=== PATIENT | female | born 1945 | race Caucasian/White ===

== ENCOUNTER 2017-09-22 17:07 | Emergency (ER) | payer OTHER ==
--- OUTSIDE RECORDS SUMMARY | 2017-09-22 17:09 | XMS REPORT | Clinical Summary ---
:1945 Author Organization [facility] Address [address] [place] [address] Care Team Providers Name Role Phone Jaylon Randall MD Primary Care Provider Allergies Active Allergy Reactions Severity Noted Date Comments Meperidine 02/01/2016 Hallucination Hydromorphone Other (See High 12/22/2015 Sedated, "out of it" Comments) Morphine 02/01/2016 Hallucination Hydrocodone-Acetaminoph Other (See 01/07/2016 Hallucination en Comments) Vancomycin Other (See High 12/22/2015 " affected my kidneys" Comments) Current Medications Prescription Sig. Disp. Refills Start Date End Date Status carvedilol (COREG) Take 9.375 mg by mouth 3 10/28/2015 Active 3.125 MG tablet 2 (two) times a day with meals. rivaroxaban (XARELTO) Take 15 mg by mouth Active tablet nightly. STOPPED 12/17 due to surgery citalopram (CeleXA) 40 Take 40 mg by mouth Active MG tablet every morning. pantoprazole Take 40 mg by mouth Active (PROTONIX) 40 MG EC daily. tablet traMADol (ULTRAM) 50 Take 50 mg by mouth 3 Active mg tablet (three) times a day as needed for moderate pain. iron-folic acid-mv, Take 1 capsule by Active min cmb#15 mouth 2 (two) times a (HEMOCYTE-PLUS) 106 mg day. iron- 1 mg capsule torsemide (DEMADEX) 20 Take 20 mg by mouth Active MG tablet continuously as needed. 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 Mechanical complic of internal orthopedic device, implant or graft 02/17/2016 Protein-calorie malnutrition, severe 02/09/2016 Cellulitis 02/01/2016 Hip fracture 01/07/2016 Complication of internal prosthetic device 01/07/2016 Infection of prosthetic hip joint 01/07/2016 Osteomyelitis, pelvic region and thigh 12/23/2015 Infection 12/23/2015 Immunizations Name Dates Previously Given Next Due FLUCELVAX QUAD PF (0.5mL syringe) 01/14/2016 Family History Medical History Relation Name Comments Diabetes Mother Relation Name Status Comments Father Mother Social History Tobacco Use Types Packs/Day Years Used Date Former Smoker Cigarettes 1 35 Quit: 2009 Smokeless Tobacco: Never Used Alcohol Use Drinks/Week oz/Week Comments Yes OCCASIONAL Sex Assigned at Date Recorded Not on file Last Filed Vital Signs Not on file Plan of Treatment Health Maintenance Due Date Last Done Comments BREAST CANCER SCREENING 08/09/1995 COLON CANCER SCREENING 08/09/1995 SHINGRIX VACCINE (#1) 08/09/1995 ZOSTER VACCINE 2005 PNEUMOCOCCAL POLYSACCHARIDE VACCINE AGE 65 AND OVER 2010 PNEUMOCOCCAL-13 2010 INFLUENZA VACCINE 11/08/2017 01/14/2016 Implants Implanted Type Area Brine Well Operator Device Expiration Model / Identifier Date Serial / Lot Body Prox Cone Hiofst Sz A 50mm Macarena - [id number] Hip Joint Left: [employer] 06/02/2026 [id number] / Implanted: 06/15/2016 (Quantity not on file) Implants Hip / [id number] Head Fml Sld Modlr Co-Cr 40x-6mm D0r-Ftsmpg - [id number] Hip Joint Left: [employer] 03/01/2026 [id number] / Implanted: 06/15/2016 (Quantity not on file) Implants Hip / [id number] G7 Neutral E1 Liner 40mm I - [id number] IPM IMPLANT Left: [employer], [employer] [id number] / Implanted: 06/15/2016 (Quantity not on file) DEVICES Hip / [id number] Screw G7 6.5x25 - [id number] IPM IMPLANT Left: [employer] 05/24/2026 [id number] / Implanted: 06/15/2016 (Quantity not on file) DEVICES Hip / [id number] Screw G7 6.5x25 - [id number] IPM IMPLANT Left: [employer] 05/24/2026 [id number] / Implanted: 06/15/2016 (Quantity not on file) DEVICES Hip / [id number] Screw G7 6.5x20 - [id number] IPM IMPLANT Left: [employer] 02/23/2026 [id number] / Implanted: 06/15/2016 (Quantity not on file) DEVICES Hip / [id number] Screw G7 6.5x20 - [id number] IPM IMPLANT Left: BI[employer] Delta, [employer] 04/25/2026 [id number] / Implanted: 06/15/2016 (Quantity not on file) DEVICES Hip / [id number] Screw G7 6.5x60 - [id number] IPM IMPLANT Left: Kelan, [employer] 09/23/2025 [id number] / Implanted: Qty: 1 on 06/15/2016 by Quique Fowler MD DEVICES Hip / Screw G7 6.5x35 - [id number] IPM IMPLANT Left: Kelan, [employer] 06/02/2025 [id number] / Implanted: 06/15/2016 (Quantity not on file) DEVICES Hip / [id number] Screw G7 6.5x20 - [id number] IPM IMPLANT Left: Kelan, [employer] 03/13/2026 [id number] / Implanted: 06/15/2016 (Quantity not on file) DEVICES Hip / [id number] G7 [place] Multihole 66mm I - [id number] IPM IMPLANT Left: Kelan, [employer] [id number] / Implanted: 06/15/2016 (Quantity not on file) DEVICES Hip / [id number] Macarena 38q265ul Intlkng Dist - [id number] IPM IMPLANT Left: Kelan, [employer] [id number] / Implanted: 06/15/2016 (Quantity not on file) DEVICES Hip / [id number] Screw Trans Kressman 5.0x40mm - [id number] IPM IMPLANT Left: [employer] Delta, [employer] [id number] / Implanted: 06/15/2016 (Quantity not on file) DEVICES Hip / 5.2uea22ca Ti Kaessmann Screw - [id number] IPM IMPLANT Left: [employer] [id number] / Implanted: 06/15/2016 (Quantity not on file) DEVICES Hip / 5.4fqh71qh Ti Kaessmann Screw - [id number] IPM IMPLANT Left: [employer], [employer] [id number] / Implanted: 06/15/2016 (Quantity not on file) DEVICES Hip / Cement Bone Full Dose Simplex P Radiopaque - [id number] Surgical Left: LINDA 06/07/2018 [id number] [id number] / Implanted: Qty: 1 on 12/23/2015 by Quique Fowler MD Bone Cement Hip ORTHOPEDICS / HIPS-KNEES [id number] Cement Bone Full-Dose Premxd W/ Tobr Simplex P Pack 10/Ea - [id number] Surgical Left: LINDA 04/09/2017 [id number] [id number] / Implanted: Qty: 1 on 12/23/2015 by Quique Fowler MD Bone Cement Hip ORTHOPEDICS / HIPS-KNEES [id number] Cement Bone Full-Dose Premxd W/ Tobr Simplex P Pack 10/Ea - [id number] Surgical Left: LINDA 02/07/2017 [id number] [id number] / Implanted: Qty: 1 on 12/23/2015 by Quique Fowler MD Bone Cement Hip ORTHOPEDICS / HIPS-KNEES [id number] Cement Bone Full-Dose Premxd W/ Tobr Simplex P Pack 10/Ea - [id number] Surgical Left: LINDA 04/09/2017 [id number] 9 [id number] / Implanted: Qty: 1 on 12/23/2015 by Quique Fowler MD Bone Cement Hip ORTHOPEDICS / HIPS-KNEES [id number] Cement Bone Full-Dose Premxd W/ Tobr Simplex P Pack 10/Ea - [id number] Surgical Left: LINDA 05/10/2017 [id number] 9 [id number] / Implanted: Qty: 1 on 02/17/2016 by Quique Fowler MD Bone Cement Hip ORTHOPEDICS / HIPS-KNEES [id number] Cement Bone Full-Dose Premxd W/ Tobr Simplex P Pack 10/Ea - [id number] Surgical Left: LINDA 04/09/2017 [id number] 9 010 / Implanted: Qty: 1 on 02/17/2016 by Quique Fowler MD Bone Cement Hip ORTHOPEDICS / HIPS-KNEES [id number] Cement Bone Full-Dose Premxd W/ Tobr Simplex P Pack 10/Ea - [id number] Surgical Left: LINDA 07/08/2017 [id number] 9 [id number] / Implanted: Qty: 1 on 02/17/2016 by Quique Fowler MD Bone Cement Hip ORTHOPEDICS / HIPS-KNEES [id number] Cement Bone Full Dose Simplex P Radiopaque - [id number] Surgical Left: LINDA 09/07/2018 [id number] 1 010 / Implanted: Qty: 1 on 02/17/2016 by Quique Fowler MD Bone Cement Hip ORTHOPEDICS / HIPS-KNEES [id number] Cement Bone Full Dose Simplex P Radiopaque - [id number] Surgical Left: LINDA 06/07/2018 6191 1 010 / Implanted: Qty: 1 on 04/13/2016 by Quique Fowler MD Bone Cement Hip ORTHOPEDICS / HIPS-KNEES [id number] Cement Bone Full-Dose Premxd W/ Tobr Simplex P Pack 10/Ea - [id number] Surgical Left: LINDA 08/07/2017 [id number] 9 010 / Implanted: Qty: 1 on 04/13/2016 by Quique Fowler MD Bone Cement Hip ORTHOPEDICS / HIPS-KNEES [id number] Cement Bone Full-Dose Premxd W/ Tobr Simplex P Pack 10/Ea - [id number] Surgical Left: LINDA 08/07/2017 [id number] 9 010 / Implanted: Qty: 1 on 04/13/2016 by Quique Fowler MD Bone Cement Hip ORTHOPEDICS / HIPS-KNEES [id number] Cement Bone Full-Dose Premxd W/ Tobr Simplex P Pack 10/Ea - [id number] Surgical Left: LINDA 08/07/2017 [id number] 9 010 / Implanted: Qty: 1 on 04/13/2016 by Quique Fowler MD Bone Cement Hip ORTHOPEDICS / HIPS-KNEES [id number] Cement Bone Full-Dose Premxd W/ Tobr Simplex P Pack 10/Ea - [id number] Surgical Left: LINDA 08/07/2017 [id number] 9 010 / Implanted: Qty: 2 on 04/20/2016 by Quique Fowler MD Bone Cement Hip ORTHOPEDICS / HIPS-KNEES [id number] Cement Bone Full-Dose Premxd W/ Tobr Simplex P Pack 10/Ea - [id number] Surgical Left: LINDA 08/07/2017 [id number] 9 010 / Implanted: Qty: 1 on 04/20/2016 by Quique Fowler MD Bone Cement Hip ORTHOPEDICS / HIPS-KNEES [id number] Cement Bone Prep Univl Insrtr Sculp Fml Canal [place]aver[place] Suct - [id number] Surgical Left: LINDA 10/08/2020 [id number] / Implanted: Qty: 1 on 12/23/2015 by Quique Fowler MD Implants; Hip INSTRUMENTS / Expanders; [id number] Extenders; Surgical Wires Cement Bone Prep Univl Insrtr Sculp Fml Canal [place] Suct Sm - [id number] Surgical Left: LINDA 12/09/2020 [id number] / Implanted: Qty: 1 on 02/17/2016 by Quique Fowler MD Implants; Hip INSTRUMENTS / Expanders; [id number] Extenders; Surgical Wires Cement Bone Prep Univl Insrtr Sculp Fml Canal [place] Suct Sm - [id number] Surgical N/A: LINDA 01/08/2021 [id number] / Implanted: Qty: 1 on 04/20/2016 by Quique Fowler MD Implants; N/A INSTRUMENTS / Expanders; [id number] Extenders; Surgical Wires Results Not on fileafter 09/21/2016 Insurance Payer Benefit Plan / Group Subscriber ID Type Phone Address [facility] xxxxxxxxxxx O [phone] [place] [address]
--- NOTE | 2017-09-22 18:23 | RAD REPORT ---
EXAM DESCRIPTION: RAD - Elbow Left 3 View - 09/22/2017 6:13 pm CLINICAL HISTORY: PAIN Fall, trauma COMPARISON: No comparisons FINDINGS: No fracture or dislocation seen.
--- NOTE | 2017-09-22 18:24 | RAD REPORT ---
EXAM DESCRIPTION: RAD - Hip Left 2 View - 09/22/2017 6:20 pm CLINICAL HISTORY: PAIN History of fall COMPARISON: Hip Left 2 View dated 05/04/2014; Hip Left 2 View dated 05/04/2014 FINDINGS: Left total hip arthroplasty noted. No acute fracture or dislocation seen.
--- NOTE | 2017-09-22 18:25 | RAD REPORT ---
EXAM DESCRIPTION: RAD - Hip Right 2 View - 09/22/2017 6:13 pm CLINICAL HISTORY: PAIN Trauma, fall COMPARISON: Hip Left 2 View dated 09/22/2017 FINDINGS: Right total hip arthroplasty noted. No acute fracture or dislocation seen.
[2017-09-22] MEDS ORDERED: HYDROCODONE/APAP 5/325 MG TAB ONE (18:38)
[2017-09-22] MEDS ORDERED: TETANUS & DIPHTHERIA TOX,ADULT 0.5 ML VIAL ONE (18:38)
--- NOTE | 2017-09-22 19:08 | EDPHYS ---
Physician Documentation [facility] Name: Sandra Armas Age: 72 yrs Sex: Female : 1945 Arrival Date: 09/22/2017 Time: 17:15 Bed 26 Private MD: ED Physician Khanh Snow HPI: 09/22 18:00 This 72 yrs old Female presents to ER via EMS with complaints of Fall Injury. pm1 19:00 Details of fall: The patient fell from an upright position, while walking. Onset: The pm1 symptoms/episode began/occurred just prior to arrival. Associated injuries: The patient sustained left elbow, Skin tear, left and right hip pain no greater than her normal chronic pain. Patient landed on her left hip and left elbow. Patient without any headache, head injury, neck pain, or neck injury. No LOC. Patient was working in her garden and tripped on the hose resulting in a fall on her left side. Patient did not hit her head. 19:00 Patient able to walk after injury. pm1 Historical: - Allergies: 17:49 Morphine; kr2 17:49 Vancomycin; kr2 - PMHx: 17:49 Atrial Fib; Hypertension; Lung Cancer; Infection of Prosthetic Hip; kr2 - PSHx: 17:49 Bilateral hip replacements; Repair of left hip prosthesis; kr2 - Immunization history:: Adult Immunizations unknown. - Social history:: Smoking status: Patient/guardian denies using tobacco. - Immunization history: Last tetanus immunization: unknown. - Ebola Screening: : No symptoms or risks identified at this time. ROS: 19:00 Constitutional: Negative for fever, chills, and weight loss, Eyes: Negative for injury, pm1 pain, redness, and discharge, ENT: Negative for injury, pain, and discharge, Neck: Negative for injury, pain, and swelling, Cardiovascular: Negative for chest pain, palpitations, and edema, Respiratory: Negative for shortness of breath, cough, wheezing, and pleuritic chest pain, Abdomen/GI: Negative for abdominal pain, nausea, vomiting, diarrhea, and constipation, Back: Negative for injury and pain, : Negative for injury, bleeding, discharge, and swelling. 19:00 Neuro: Negative for headache, weakness, numbness, tingling, and seizure. 19:00 MS/extremity: Positive for pain, of the left elbow, left hip, and right hip, Negative for decreased range of motion, skin tear to left elbow. 19:00 Skin: Positive for skin tear left elbow. Exam: 19:00 Constitutional: This is a well developed, well nourished patient who is awake, alert, pm1 and in no acute distress. Head/Face: Normocephalic, atraumatic. Eyes: Pupils equal round and reactive to light, extra-ocular motions intact. Lids and lashes normal. Conjunctiva and sclera are non-icteric and not injected. Cornea within normal limits. Periorbital areas with no swelling, redness, or edema. ENT: Nares patent. No nasal discharge, no septal abnormalities noted. Tympanic membranes are normal and external auditory canals are clear. Oropharynx with no redness, swelling, or masses, exudates, or evidence of obstruction, uvula midline. Mucous membranes moist. Neck: Trachea midline, no thyromegaly or masses palpated, and no cervical lymphadenopathy. Supple, full range of motion without nuchal rigidity, or vertebral point tenderness. No Meningismus. Chest/axilla: Normal chest wall appearance and motion. Nontender with no deformity. No lesions are appreciated. Cardiovascular: Regular rate and rhythm with a normal S1 and S2. No gallops, murmurs, or rubs. Normal PMI, no JVD. No pulse deficits. Respiratory: Lungs have equal breath sounds bilaterally, clear to auscultation and percussion. No rales, rhonchi or wheezes noted. No increased work of breathing, no retractions or nasal flaring. Abdomen/GI: Soft, non-tender, with normal bowel sounds. No distension or tympany. No guarding or rebound. No evidence of tenderness throughout. Back: No spinal tenderness. No costovertebral tenderness. Full range of motion. 19:00 Musculoskeletal/extremity: Extremities: grossly normal except: noted in the left and right hip: tenderness, ROM: full active range of motion, in the left and right hip, full passive range of motion, in the left and right hip, Circulation is intact in all extremities. the right leg and left leg Sensation intact. 19:00 Skin: Appearance: normal except for affected area, injury, abrasion(s), small abrasion noted, of the left elbow. Vital Signs: 17:25 BP 126 / 68; Pulse 51; Resp 16; Temp 98.4; Pulse Ox 94% on R/A; Weight 85.28 kg; Height kr2 5 ft. 7 in. (170.18 cm); Pain 6/10; 17:25 Body Mass Index 29.45 (85.28 kg, 170.18 cm) kr2 [place] Coma Score: 17:25 Eye Response: spontaneous(4). Verbal Response: oriented(5). Motor Response: obeys kr2 commands(6). Total: 15. Trauma Score (Adult): 17:25 Eye Response: spontaneous(1); Verbal Response: oriented(1); Motor Response: obeys kr2 commands(2); Systolic BP: > 89 mm Hg(4); Respiratory Rate: 10 to 29 per min(4); [place] Score: 15; Trauma Score: 12 MDM: 17:19 Patient medically screened. pm1 19:07 Data reviewed: vital signs. Counseling: I had a detailed discussion with the patient pm1 and/or guardian regarding: the historical points, exam findings, and any diagnostic results supporting the discharge/admit diagnosis, radiology results, the need for outpatient follow up, to return to the emergency department if symptoms worsen or persist or if there are any questions or concerns that arise at home. 09/22 17:34 Order name: Hip Right 2 View XRAY; Complete Time: 18:26 pm1 09/22 17:34 Order name: Hip Left 2 View XRAY; Complete Time: 18:26 pm1 09/22 17:34 Order name: Elbow Left 3 View XRAY; Complete Time: 18:26 pm1 09/22 17:40 Order name: Wound Care; Complete Time: 17:56 pm1 Administered Medications: 18:40 Drug: Tetanus-Diphtheria Toxoid Adult 0.5 ml {Web Editor: Subblime. Exp: kr2 12/08/2019. Lot #: [id number]. } Route: IM; Site: left deltoid; 18:40 Drug: [place] 5 mg-325 mg 1 tabs Route: PO; kr2 19:08 Drug: Triple Antibiotic Ointment 1 application Route: Topical; Site: left forearm; kr2 Disposition: 09/22/17 19:08 Discharged to Home. Impression: Contusion of left hip, Left elbow skin tear. - Condition is Stable. - Discharge Instructions: Contusion, Skin Tear Care, Hip Pain. - Medication Reconciliation Form, Thank You Letter form. - Follow up: Emergency Department; When: As needed; Reason: Worsening of condition. Follow up: Private Physician; When: 2 - 3 days; Reason: Recheck today's complaints, Continuance of care, Re-evaluation by your physician. - Problem is new. - Symptoms have improved. Addendum: 09/26/2017 07:06 Co-signature as Attending Physician, Khanh Snow MD I agree with the assessment and k dr plan of care. Signatures: Dispatcher [employer] EDRI Khanh Snow MD MD [facility] Nico Zendejas NP EMBEDDED FIRMWARE ENGINEER pm1 Maria Fernanda Gann RN RN kr2 Corrections: (The following items were deleted from the chart) 09/22 19:29 19:08 09/22/2017 19:08 Discharged to Home. Impression: Contusion of left hip; Left kr2 elbow skin tear. Condition is Stable. Forms are Medication Reconciliation Form, Thank You Letter, Antibiotic Education, Prescription Opioid Use. Follow up: Emergency Department; When: As needed; Reason: Worsening of condition. Follow up: Private Physician; When: 2 - 3 days; Reason: Recheck today's complaints, Continuance of care, Re-evaluation by your physician. Problem is new. Symptoms have improved. pm1
--- NOTE | 2017-09-22 19:08 | ER ---
Nurse's Notes [facility] Name: Sandra Armas Age: 72 yrs Sex: Female : 1945 Arrival Date: 09/22/2017 Time: 17:15 Bed 26 Private MD: Diagnosis: Contusion of left hip;Left elbow skin tear Presentation: 09/22 17:15 Presenting complaint: EMS states: patient was working outside and tripped on the garden kr2 hose causing her to fall. She states she does not have anymore pain than normal but she has bilateral artificial hips and was concerned about that. She also has a skin tear to the left forearm. Care prior to arrival: Injury dressed. Mechanism of Injury: Fall from standing position. Trauma event details: Injury occurred in the [facility], Injury occurred: at home. Injury occurred: September 22, 2017 Injury occurred at: 16:18. 17:15 Acuity: RYAN 3 kr2 17:15 Method Of Arrival: EMS: [facility] kr2 17:15 Transition of care: patient was not received from another setting of care. Onset of kr2 symptoms was September 22, 2017 at 16:15. Risk Assessment: Do you want to hurt yourself or someone else? Patient reports no desire to harm self or others. Initial Sepsis Screen: Does the patient meet any 2 criteria? No. Patient's initial sepsis screen is negative. Does the patient have a suspected source of infection? No. Patient's initial sepsis screen is negative. Triage Assessment: 17:31 General: Appears in no apparent distress. comfortable, well groomed, well developed, kr2 well nourished, Behavior is calm, cooperative, appropriate for age. Pain: Complains of pain in left hip Pain currently is 6 out of 10 on a pain scale. Quality of pain is described as aching, Pain began 1 hour ago. Is continuous, Alleviated by rest, Aggravated by increased activity. Trauma Activation: Not Applicable Physician: ED Physician; Name: ; Notified At: ; Arrived At: Physician: General Surgeon; Name: ; Notified At: ; Arrived At: Physician: Radiology; Name: ; Notified At: ; Arrived At: Physician: Respiratory; Name: ; Notified At: ; Arrived At: Physician: Lab; Name: ; Notified At: ; Arrived At: Historical: - Allergies: 17:49 Morphine; kr2 17:49 Vancomycin; kr2 - PMHx: 17:49 Atrial Fib; Hypertension; Lung Cancer; Infection of Prosthetic Hip; kr2 - PSHx: 17:49 Bilateral hip replacements; Repair of left hip prosthesis; kr2 - Immunization history:: Adult Immunizations unknown. - Social history:: Smoking status: Patient/guardian denies using tobacco. - Immunization history: Last tetanus immunization: unknown. - Ebola Screening: : No symptoms or risks identified at this time. Screenin:31 Abuse screen: Denies threats or abuse. Denies injuries from another. Nutritional kr2 screening: No deficits noted. Tuberculosis screening: No symptoms or risk factors identified. Fall Risk None identified. Primary Survey: 17:30 A: Airway: patent. Breathing/Chest: Respiratory pattern: regular, Respiratory effort: kr2 spontaneous, unlabored, Breath sounds: clear, bilaterally. Chest inspection: symmetrical rise and fall of the chest. Circulation: Cardiac rhythm: sinus rhythm Heart tones present. Skin color: pink, Skin temperature: warm, dry. Disability Alert. 17:43 Reassessment Airway Airway Patent Breathing/Chest Respiratory pattern Regular kr2 Respiratory effort Spontaneous Unlabored Breath sounds Clear Chest inspection Symmetrical Circulation Heart rhythm Sinus rhythm Disability Alert. Assessment: 19:17 Reassessment: Wound cleansed with normal saline and Hibiclens, dried, triple antibiotic kr2 applied, covered with nonstick dressing, wrapped with gauze and secured with tape. Vital Signs: 17:25 BP 126 / 68; Pulse 51; Resp 16; Temp 98.4; Pulse Ox 94% on R/A; Weight 85.28 kg; Height kr2 5 ft. 7 in. (170.18 cm); Pain 6/10; 17:25 Body Mass Index 29.45 (85.28 kg, 170.18 cm) kr2 [place] Coma Score: 17:25 Eye Response: spontaneous(4). Verbal Response: oriented(5). Motor Response: obeys kr2 commands(6). Total: 15. Trauma Score (Adult): 17:25 Eye Response: spontaneous(1); Verbal Response: oriented(1); Motor Response: obeys kr2 commands(2); Systolic BP: > 89 mm Hg(4); Respiratory Rate: 10 to 29 per min(4); [place] Score: 15; Trauma Score: 12 ED Course: 17:15 Patient arrived in ED. kr2 17:15 Arm band placed on. kr2 17:15 Patient has correct armband on for positive identification. Bed in low position. Call kr2 light in reach. Side rails up X 1. Pulse ox on. NIBP on. Door closed. Warm blanket given. Head of bed elevated. 17:15 Patient maintains SpO2 saturation greater than 95% on room air. kr2 17:15 Thermoregulation: warm blanket given to patient. kr2 17:19 Triage completed. kr2 17:19 Nico Zendejas NP is PHCP. pm1 17:19 Khanh Snow MD is Attending Physician. pm1 17:43 No provider procedures requiring assistance completed. kr2 17:55 Maria Fernanda Gann, RONA is Primary Nurse. kr2 18:07 X-ray completed. Patient tolerated procedure well. Patient moved back from radiology. bb2 18:13 Hip Right 2 View XRAY In Process Unspecified. EDMS 18:13 Hip Left 2 View XRAY In Process Unspecified. EDMS 18:13 Elbow Left 3 View XRAY In Process Unspecified. EDMS 19:19 Patient did not have IV access during this emergency room visit. kr2 Administered Medications: 18:40 Drug: Tetanus-Diphtheria Toxoid Adult 0.5 ml {Machinist First Class: [employer]. Exp: kr2 12/08/2019. Lot #: [id number]. } Route: IM; Site: left deltoid; 18:40 Drug: [place] 5 mg-325 mg 1 tabs Route: PO; kr2 19:08 Drug: Triple Antibiotic Ointment 1 application Route: Topical; Site: left forearm; kr2 Intake: 19:19 PO: 30ml (Water); Total: 30ml. kr2 Outcome: 19:08 Discharge ordered by . pm1 19:18 Discharged to home via wheelchair, with family. kr2 19:18 Condition: good 19:18 Discharge instructions given to patient, family, Instructed on discharge instructions, follow up and referral plans. wound care, Demonstrated understanding of instructions, follow-up care, wound care. 19:28 Patient's length of stay was not longer than 2 hours. kr2 19:29 Patient left the ED. kr2 Signatures: Dispatcher [employer] EDMS Nico Zendejas, MATTHIAS DRY ROOM OPERATOR pm1 Maria Fernanda Gann, RN RN kr2 Katerin Hillman bb2
[2017-09-22 20:29] VITALS: BP 126/68; TEMP 98.4; O2SAT 94
== END 2017-09-22 19:29 | disposition home or self-care (01) ==
LOC: ER 17:07
DX: S51.012A Laceration without foreign body of left elbow, initial encounter (principal); S70.02XA Contusion of left hip, initial encounter; W01.0XXA Fall on same level from slipping, tripping and stumbling without subsequent striking against object, initial encounter; Y92.019 Unspecified place in single-family (private) house as the place of occurrence of the external cause; Z88.1 Allergy status to other antibiotic agents; Z88.5 Allergy status to narcotic agent; I48.91 Unspecified atrial fibrillation; I10 Essential (primary) hypertension; Z96.643 Presence of artificial hip joint, bilateral
CPT/HCPCS: 90714; 99284

== ENCOUNTER 2018-07-04 13:05 | Inpatient (IN) | payer OTHER ==
--- OUTSIDE RECORDS SUMMARY | 2018-07-04 14:53 | XMS REPORT | Clinical Summary ---
:1945 Author Organization [facility] Address [address] [place] [address] Care Team Providers Name Role Phone Jaylon Randall MD Primary Care Provider Allergies Active Allergy Reactions Severity Noted Date Comments Meperidine 02/01/2016 Hallucination Hydromorphone Other (See High 12/22/2015 Sedated, "out of it" Comments) Morphine 02/01/2016 Hallucination Hydrocodone-Acetaminoph Other (See 01/07/2016 Hallucination en Comments) Vancomycin Other (See High 12/22/2015 " affected my kidneys" Comments) Medications Medication Sig Dispensed Refills Start Date End Date Status carvedilol (COREG) Take 9.375 mg by 3 10/28/2015 Active 3.125 MG tablet mouth 2 (two) times a day with meals. rivaroxaban Take 15 mg by mouth 0 Active (XARELTO) tablet nightly. STOPPED 12/17 due to surgery citalopram (CeleXA) Take 40 mg by mouth 0 Active 40 MG tablet every morning. pantoprazole Take 40 mg by mouth 0 Active (PROTONIX) 40 MG EC daily. tablet traMADol (ULTRAM) 50 Take 50 mg by mouth 0 Active mg tablet 3 (three) times a day as needed for moderate pain. iron-folic acid-mv, Take 1 capsule by 0 Active min cmb#15 mouth 2 (two) times (HEMOCYTE-PLUS) 106 a day. mg iron- 1 mg capsule torsemide (DEMADEX) Take 20 mg by mouth 0 Active 20 MG tablet continuously as needed. Active Problems [...] Assigned at Date Recorded Not on file Job Start Date Occupation Industry Not on file Not on file Not on file Travel History Travel Start Travel End No recent travel history available. Last Filed Vital Signs Not on file Plan of Treatment Health Maintenance Due Date Last Done Comments BREAST CANCER SCREENING 08/09/1995 COLON CANCER SCREENING 08/09/1995 SHINGLES VACCINES (#1) 08/09/1995 65+ PNEUMOCOCCAL VACCINE (1 of 2 - PCV13) 2010 PNEUMOCOCCAL POLYSACCHARIDE VACCINE AGE 65 AND OVER 2010 INFLUENZA VACCINE 11/08/2017 01/14/2016 Implants Implanted Type Area Math Teacher Device Shelf Model / Identifier Expiration Serial / Lot Date Body Prox Cone Hiofst Sz A 50mm Macarena - [id number] Hip Joint Left: [employer] 06/02/2026 [id number] / Implanted: 06/15/2016 (Quantity not on file) Implants Hip / [id number] Head Fml Sld Modlr Co-Cr 40x-6mm [id number] - [id number] Hip Joint Left: [employer] 03/01/2026 [id number] / Implanted: 06/15/2016 (Quantity not on file) Implants Hip / [id number] G7 Neutral E1 Liner 40mm I - [id number] IPM IMPLANT Left: [employer] [id number] / Implanted: 06/15/2016 (Quantity not on file) DEVICES Hip / [id number] Screw G7 6.5x25 - [id number] IPM IMPLANT Left: [employer] 05/24/2026 [id number] / Implanted: 06/15/2016 (Quantity not on file) DEVICES Hip / [id number] Screw G7 6.5x25 - [id number] IPM IMPLANT Left: [employer] 05/24/2026 [id number] / Implanted: 06/15/2016 (Quantity not on file) DEVICES Hip / [id number] Screw G7 6.5x20 - [id number] IPM IMPLANT Left: [employer] 02/23/2026 [id number] / Implanted: 06/15/2016 (Quantity not on file) DEVICES Hip / [id number] Screw G7 6.5x20 - [id number] IPM IMPLANT Left: [employer] 04/25/2026 [id number] / Implanted: 06/15/2016 (Quantity not on file) DEVICES Hip / [id number] Screw G7 6.5x60 - [id number] IPM IMPLANT Left: [employer], [employer] 09/23/2025 [id number] / Implanted: Qty: 1 on 06/15/2016 by Quique Fowler MD DEVICES Hip / Screw G7 6.5x35 - [id number] [id number] IMPLANT Left: [employer], [employer] 06/02/2025 [id number] / Implanted: 06/15/2016 (Quantity not on file) DEVICES Hip / [id number] Screw G7 6.5x20 - [id number] IPM IMPLANT Left: [employer], [employer] 03/13/2026 [id number] / Implanted: 06/15/2016 (Quantity not on file) DEVICES Hip / [id number] G7 [place] Multihole 66mm I - [id number] IPM IMPLANT Left: [employer], [employer] [id number] / Implanted: 06/15/2016 (Quantity not on file) DEVICES Hip / [id number] Macarena 76x747yc Intlkng Dist - [id number] IPM IMPLANT Left: [employer], [employer] [id number] / Implanted: 06/15/2016 (Quantity not on file) DEVICES Hip / [id number] Screw Trans Kressman 5.0x40mm - [id number] IPM IMPLANT Left: [employer], [employer] [id number] / Implanted: 06/15/2016 (Quantity not on file) DEVICES Hip / 5.2dxn99rr Ti Kaessmann Screw - [id number] IPM IMPLANT Left: [employer], [employer] [id number] / Implanted: 06/15/2016 (Quantity not on file) DEVICES Hip / 5.4pnb52ah Ti Kaessmann Screw - [id number] IPM IMPLANT Left: [employer] [id number] / Implanted: 06/15/2016 (Quantity not on file) DEVICES Hip / Cement Bone Full Dose Simplex P Radiopaque - [id number] Surgical Left: LINDA 06/07/2018 6191 1 010 / Implanted: Qty: 1 on 12/23/2015 by Quique Fowler MD Bone Cement Hip ORTHOPEDICS / HIPS-KNEES [id number] Cement Bone Full-Dose Premxd W/ Tobr Simplex P Pack 10/Ea - [id number] Surgical Left: LINDA 04/09/2017 [id number] 9 010 / Implanted: Qty: 1 on 12/23/2015 by Quique Fowler MD Bone Cement Hip ORTHOPEDICS / HIPS-KNEES [id number] Cement Bone Full-Dose Premxd W/ Tobr Simplex P Pack 10/Ea - [id number] Surgical Left: LINDA 02/07/2017 [id number] 9 010 / Implanted: Qty: 1 on 12/23/2015 by Quique Fowler MD Bone Cement Hip ORTHOPEDICS / HIPS-KNEES [id number] Cement Bone Full-Dose Premxd W/ Tobr Simplex P Pack 10/Ea - [id number] Surgical Left: LINDA 04/09/2017 [id number] 9 010 / Implanted: Qty: 1 on 12/23/2015 by Quique Fowler MD Bone Cement Hip ORTHOPEDICS / HIPS-KNEES [id number] Cement Bone Full-Dose Premxd W/ Tobr Simplex P Pack 10/Ea - [id number] Surgical Left: LINDA 05/10/2017 [id number] 9 010 / Implanted: Qty: 1 on 02/17/2016 by Quique Fowler MD Bone Cement Hip ORTHOPEDICS / HIPS-KNEES [id number] Cement Bone Full-Dose Premxd W/ Tobr Simplex P Pack 10/Ea - [id number] Surgical Left: LINDA 04/09/2017 6197 9 010 / Implanted: Qty: 1 on 02/17/2016 by Quique Fowler MD Bone Cement Hip ORTHOPEDICS / HIPS-KNEES [id number] Cement Bone Full-Dose Premxd W/ Tobr Simplex P Pack 10/Ea - [id number] Surgical Left: LINDA 07/08/2017 [id number] 9 010 / Implanted: Qty: 1 on 02/17/2016 by Quique Fowler MD Bone Cement Hip ORTHOPEDICS / HIPS-KNEES [id number] Cement Bone Full Dose Simplex P Radiopaque - [id number] Surgical Left: LINDA 09/07/2018 6191 1 010 / Implanted: Qty: 1 on 02/17/2016 by Quique Fowler MD Bone Cement Hip ORTHOPEDICS / HIPS-KNEES [id number] Cement Bone Full Dose Simplex P Radiopaque - [id number] Surgical Left: LINDA 06/07/2018 6191 1 010 / Implanted: Qty: 1 on 04/13/2016 by Quique Fowler MD Bone Cement Hip ORTHOPEDICS / HIPS-KNEES [id number] Cement Bone Full-Dose Premxd W/ Tobr Simplex P Pack 10/Ea - [id number] Surgical Left: LINDA 08/07/2017 6197 9 010 / Implanted: Qty: 1 on 04/13/2016 by Quique Fowler MD Bone Cement Hip ORTHOPEDICS / HIPS-KNEES [id number] Cement Bone Full-Dose Premxd W/ Tobr Simplex P Pack 10/Ea - [id number] Surgical Left: LINDA 08/07/2017 6197 9 010 / Implanted: Qty: 1 on 04/13/2016 by Quique Fowler MD Bone Cement Hip ORTHOPEDICS / HIPS-KNEES [id number] Cement Bone Full-Dose Premxd W/ Tobr Simplex P Pack 10/Ea - [id number] Surgical Left: LINDA 08/07/2017 6197 9 010 / Implanted: Qty: 1 on 04/13/2016 by Quique Fowler MD Bone Cement Hip ORTHOPEDICS / HIPS-KNEES [id number] Cement Bone Full-Dose Premxd W/ Tobr Simplex P Pack 10/Ea - [id number] Surgical Left: LINDA 08/07/2017 6197 9 010 / Implanted: Qty: 2 on 04/20/2016 by Quique Fowler MD Bone Cement Hip ORTHOPEDICS / HIPS-KNEES [id number] Cement Bone Full-Dose Premxd W/ Tobr Simplex P Pack 10/Ea - [id number] Surgical Left: LINDA 08/07/2017 6197 9 010 / Implanted: Qty: 1 on 04/20/2016 by Quique Fowler MD Bone Cement Hip ORTHOPEDICS / HIPS-KNEES [id number] Cement Bone Prep Univl Insrtr Sculp Fml [place] Suct Sm - [id number] Surgical Left: LINDA 10/08/2020 [id number] / Implanted: Qty: 1 on 12/23/2015 by Quique Fowler MD Implants; Hip INSTRUMENTS / Expanders; [id number] Extenders; Surgical Wires Cement Bone Prep Univl Insrtr Sculp Fml [place] Suct Sm - [id number] Surgical Left: LINDA 12/09/2020 [id number] / Implanted: Qty: 1 on 02/17/2016 by Quique Fowler MD Implants; Hip INSTRUMENTS / Expanders; [id number] Extenders; Surgical Wires Cement Bone Prep Univl Insrtr Sculp Fml [place] Suct Sm - [id number] Surgical N/A: LINDA 01/08/2021 [id number] / Implanted: Qty: 1 on 04/20/2016 by Quique Fowler MD Implants; N/A INSTRUMENTS / Expanders; [id number] Extenders; Surgical Wires Procedures Procedure Name Priority Date/Time Associated Diagnosis Comments TRANSFUSE RED BLOOD Routine 12/13/2017 5:28 PM CDT CELLS TRANSFUSE RED BLOOD Routine 12/13/2017 5:28 PM CDT CELLS TRANSFUSE RED BLOOD Routine 12/13/2017 5:28 PM CDT CELLS TRANSFUSE RED BLOOD Routine 12/13/2017 5:28 PM CDT CELLS TRANSFUSE RED BLOOD Routine 12/13/2017 5:27 PM CDT CELLS TRANSFUSE RED BLOOD Routine 12/13/2017 5:27 PM CDT CELLS TRANSFUSE RED BLOOD Routine 12/13/2017 5:26 PM CDT CELLS after 07/03/2017 Results Transfuse RBC (12/13/2017 5:28 PM CDT)Only the most recent of7 resultswithin the time period is included.after 07/03/2017 Insurance Payer Benefit Plan / Group Subscriber ID Type Phone Address [facility] MCR ADV xxxxxxxxxxx O Advance Directives Patient has advance care planning documents, and code status on file. For more information, please contact:Hood Leung[address] [place] [address] Code Status Date Activated Date Inactivated Comments Full Code 04/18/2016 5:23 PM 04/25/2016 8:24 PM Code Status decision reached by: Patient Full Code 02/18/2016 5:07 PM 02/23/2016 6:44 PM Code Status decision reached by: Patient Full Code 02/01/2016 10:12 PM 02/09/2016 6:11 PM Code Status decision reached by: Patient Full Code 01/07/2016 10:28 PM 01/14/2016 1:14 PM Code Status decision reached by: Patient Full Code 12/24/2015 1:24 PM 12/30/2015 7:57 PM Code Status decision reached by: Patient
[2018-07-04 17:05] LABS: Absolute Lymphocytes (CBC) 0.2 K/uL (0.7-4.9); Absolute Monocytes 0.5 K/uL (0.1-1.3); Absolute Neutrophil 4.7 K/uL (1.8-8.0); Basophils % 0.3 % (0-1.3); Eosinophils % 6.9 % (0-4.4); Hematocrit 43.5 % (36.0-45.0); Lymphocytes % 3.3 % (15.3-44.8); MPV 7.6 fL (7.6-11.3); Monocytes % 9.4 % (3.3-12.3); RBC Red Blood Cell Count 4.22 M/uL (3.86-4.86)
[2018-07-04 17:40] LABS: Potassium 4.8 mmol/L (3.5-5.1)
[2018-07-04] MEDS: CLINDAMYCIN INJ 900 MG in NA CHLORIDE 0.9% 50 ML IV SCH (18:32)
[2018-07-04] MEDS ORDERED: INFLUENZA VACCINE (for 3y+) 0.5 ML DOSE IMVAC ONE (19:00)
[2018-07-04 19:20] VITALS: BMI 27.3
--- NOTE | 2018-07-04 20:52 | RAD REPORT ---
EXAM DESCRIPTION: Yanci Urbina And [place] (2 Views)07/04/2018 8:47 pm CLINICAL HISTORY: Cough COMPARISON: 2017 FINDINGS: Small to moderate left pleural effusion or pleural thickening appears unchanged Bilateral interstitial lung opacities appear unchanged. I suspect most if not all is chronic The heart is mildly enlarged
[2018-07-04 23:21] LABS: Urine Appearance CLEAR; Urine Bilirubin NEGATIVE (NEG); Urine Blood NEGATIVE (NEG); Urine Color YELLOW; Urine Glucose NEGATIVE (NEG); Urine Protein NEGATIVE (NEG); Urine pH 6.5 (5.0-7.0)
[2018-07-04 23:47] LABS: Urine Microscopic Reflex NO UMIC
[2018-07-05] MEDS: CLINDAMYCIN INJ 900 MG in NA CHLORIDE 0.9% 50 ML IV SCH ×3 (01:22→17:16)
[2018-07-05] MEDS ORDERED: ACETAMINOPHEN 325 MG TABLET PO PRN (09:58)
[2018-07-05] MEDS: HYDROCODONE/APAP 7.5/325 MG TAB PO PRN (13:21)
[2018-07-05] MEDS: ENOXAPARIN 30 MG/0.3 ML SQ SCH (17:16)
--- NOTE | 2018-07-05 20:03 | PN ---
Date of Progress Note: 07/05/2018 Subjective: The patient's arms have improved as far as the cellulitis is concerned. However, legs a re significantly more erythematous and edematous and painful. She will be continued on the clindamyc in. Some discussion was held with the patient as far as her reactions to vancomycin and this will be confirmed with her ID and use. In the meantime, we will keep her on the present regimen. HR/MODL Voice ID: [id number] Report ID: [id number]
[2018-07-05] MEDS: CARVEDILOL 12.5 MG TAB PO SCH (21:04)
[2018-07-06] MEDS: CLINDAMYCIN INJ 900 MG in NA CHLORIDE 0.9% 50 ML IV SCH ×3 (00:05→17:12)
--- NOTE | 2018-07-06 02:46 | HP ---
Date of Admission: 07/04/2018 Entrance Complaint: Painful legs and arms. History Of Present Illness: The patient presented with above outlined symptoms in the office. A few days ago, diagnosis of cellulitis was made. The patient has had recurrent episodes necessitating ex tensive outpatient antibiotic and inpatient IV antibiotic treatment. Associated with this has been a lymphedema and associated skin changes. The patient has had some problems with the antibiotics in t he past. She had vancomycin in one of her episodes in [place] which was discontinued, as she had eufemia e problems with her kidney. She was given cephalosporins on numerous occasions day before admission, and at that time within an hour, she had some tightening of her throat and some rash, res ponded rapidly to Benadryl. The patient has also had numerous falls as of late and part of the probl em is due to her hip problem. Past History: Patient has significant infectious disease history dating back to hip surgery a number of years ago. She has required hip replacements, aspiration of abscess of the hip, multiple repairs , numerous hip procedures over the past few years, some resulting in infections. Family History: Noncontributory. Social History: Nonsmoker, nondrinker. Physical Examination: General/Vital Signs: Patient is an elderly female with stable vital signs and some discomfort. Head and Neck: Normocephalic. Pupils equal, react to light and accommodation. Fundi negative. Tra yaa midline. Thyroid not palpable. ENT negative. Chest: Clear to P and A. Breasts: Negative. Cardiovascular: PMI in midclavicular line. Heart: Sounds normal. Peripheral pulses present and equal bilaterally. Abdomen: No organomegaly. Bowel sounds present. Extremities: Marked erythema and edema of both lower extremities. Marked ecchymosis in the areas as well. Also scattered areas of cellulitis in the upper extremities, most marked on the left with eufemia e ecchymotic areas as well. Reflex is physiologic. Rectal/Pelvic: Deferred. Impression: Cellulitis of the legs and arms. Plan: Patient will be admitted, placed on IV antibiotics, and will be continued with symptomatic duran atment. HR/MODL Voice ID: [id number]
--- NOTE | 2018-07-06 06:19 | EKG ---
Test Date: 2018-07-04 Test Time: 17:43:38 Statistical Financial Analyst: CHERRY MEASUREMENT RESULTS: Intervals: Rate: 60 NV: 240 QRSD: 82 QT: 440 QTc: 440 [place]: P: NV: 240 QRS: 59 T: 24 INTERPRETIVE STATEMENTS: Sinus bradycardia First degree AV block Cannot rule out Anterior infarct, age undetermined Abnormal ECG Compared to ECG 02/15/2017 19:59:23 Possible myocardial infarct finding now present Atrial premature complex(es) no longer present Electronically Signed On 07-06-18 06:19:15 CDT by Van Cheng
[2018-07-06] MEDS: CARVEDILOL 12.5 MG TAB PO SCH ×2 (09:00→20:56)
[2018-07-06] MEDS: POTASSIUM CL SA 10 MEQ TAB PO SCH (10:00)
[2018-07-06] MEDS: PANTOPRAZOLE 40MG TABLET PO SCH (10:00)
[2018-07-06] MEDS: FUROSEMIDE 40 MG TABLET PO SCH (10:00)
[2018-07-06] MEDS: CITALOPRAM 10 MG TABLET PO SCH (10:01)
[2018-07-06] MEDS: ENOXAPARIN 30 MG/0.3 ML SQ SCH (10:01)
[2018-07-06] MEDS: HYDROCODONE/APAP 7.5/325 MG TAB PO PRN ×2 (10:02→22:19)
[2018-07-07] MEDS: CLINDAMYCIN INJ 900 MG in NA CHLORIDE 0.9% 50 ML IV SCH ×3 (00:37→17:56)
[2018-07-07] MEDS: HYDROCODONE/APAP 7.5/325 MG TAB PO PRN ×2 (06:03→17:58)
[2018-07-07] MEDS: CARVEDILOL 12.5 MG TAB PO SCH ×2 (08:27→20:17)
[2018-07-07] MEDS: FUROSEMIDE 40 MG TABLET PO SCH ×2 (08:28→17:56)
[2018-07-07 08:33] LABS: Absolute Lymphocytes (CBC) 0.3 K/uL (0.7-4.9); Absolute Monocytes 0.6 K/uL (0.1-1.3); Absolute Neutrophil 4.3 K/uL (1.8-8.0); Basophils % 0.5 % (0-1.3); Eosinophils % 13.1 % (0-4.4); Hematocrit 32.5 % (36.0-45.0); Lymphocytes % 5.6 % (15.3-44.8); MPV 6.5 fL (7.6-11.3); Monocytes % 9.7 % (3.3-12.3); RBC Red Blood Cell Count 3.18 M/uL (3.86-4.86)
[2018-07-07 08:45] LABS: Potassium 4.2 mmol/L (3.5-5.1)
[2018-07-07] MEDS: DOXYCYCLINE 100 MG CAP PO SCH ×2 (09:00→20:16)
[2018-07-07] MEDS: CITALOPRAM 10 MG TABLET PO SCH (10:19)
[2018-07-07] MEDS: POTASSIUM CL SA 10 MEQ TAB PO SCH (10:19)
[2018-07-07] MEDS: ENOXAPARIN 30 MG/0.3 ML SQ SCH (10:20)
[2018-07-07] MEDS: PANTOPRAZOLE 40MG TABLET PO SCH (10:20)
--- NOTE | 2018-07-07 16:36 | PN ---
Date of Progress Note: 07/07/2018 Subjective: Basically, patient is status quo as far as the cellulitis of the legs are concerned, sti ll has some lymphatic drainage from the upper arm. Culture from assumably the hip area that has been involved with some drainage as of late came back MRSA. This will be confirmed by another culture to day. The patient is afebrile and vital signs are okay except for episodes of hypotension. I suspec t this is related to the high doses of diuretic that she has been taking, which she says she has been on a regular basis; however, there is some question whether this is also associated with her beta bl ocker. In any event, they were both held. They will be reintroduced slowly. I suspect a diuresis w as necessary when she develops some marked peripheral edema and secondary to lymphedema, cellulitis a nd/or episodes of CHF the Coreg has been added by Dr. Marquez, who she saw about a month ago and she sta ruma no change in the medication. She said her activity level was stable at that time and since that time has somewhat decreased due to the inflammation and if she is dealing with it present; however, d iuresis and beta angel situation will have to be readdressed before she goes home. Plan will be to continue on IV antibiotics with addition of the doxycycline. To confirm her MRSA, perhaps do a Dopp ler of her arm and she still has some swelling in her breast as well on that side with the idea of ge tting into able to take oral antibiotics, so that she could be discharged. HR/MODL Voice ID: [id number] Report ID: [id number]
[2018-07-07] MEDS ORDERED: FUROSEMIDE 40 MG TABLET PO SCH (21:00)
[2018-07-08] MEDS ORDERED: NA CHLORIDE 0.9% 250 ML ONE (01:18)
[2018-07-08] MEDS: CLINDAMYCIN INJ 900 MG in NA CHLORIDE 0.9% 50 ML IV SCH ×3 (01:20→16:44)
[2018-07-08] MEDS: HYDROCODONE/APAP 7.5/325 MG TAB PO PRN ×2 (02:57→21:37)
[2018-07-08] MEDS: ENOXAPARIN 30 MG/0.3 ML SQ SCH (08:09)
[2018-07-08] MEDS: CITALOPRAM 10 MG TABLET PO SCH (08:10)
[2018-07-08] MEDS: POTASSIUM CL SA 10 MEQ TAB PO SCH (08:10)
[2018-07-08] MEDS: PANTOPRAZOLE 40MG TABLET PO SCH (08:10)
[2018-07-08] MEDS: FUROSEMIDE 40 MG TABLET PO SCH ×2 (08:11→16:44)
[2018-07-08] MEDS: DOXYCYCLINE 100 MG CAP PO SCH ×2 (08:11→21:36)
[2018-07-08] MEDS: CARVEDILOL 12.5 MG TAB PO SCH ×2 (08:12→21:00)
--- NOTE | 2018-07-08 11:24 | P.PN ---
Subjective Date of Service: 07/08/18 Subjective: Tolerating diet, Ambulating, Improving, Doing well Review of Systems 10-point ROS is otherwise unremarkable Physical Examination - Vital Signs Temperature: 98.0 F Blood Pressure: 103/56 Pulse: 83 Respirations: 19 Pulse Ox (%): 92 - Physical Exam General: Alert, In no apparent distress HEENT: Atraumatic, PERRLA, EOMI Neck: Supple, JVD not distended Respiratory: Clear to auscultation bilaterally, Normal air movement Cardiovascular: Regular rate/rhythm, Normal S1 S2 Gastrointestinal: Normal bowel sounds, No tenderness Integumentary: Rash(es), Tenderness/swelling, Erythema, Warmth Neurological: Normal speech, Normal tone, Normal affect Lymphatics: No axilla or inguinal lymphadenopathy - Studies Microbiology Data (last 24 hrs): 07/04/18 23:12 Wound - Left Buttock Gram Stain - Final 07/04/18 23:12 Wound - Left Buttock Culture & Sensitivity - Final Meth Resistant Staph Aureus 07/04/18 22:56 Catheterized Urine [place] Count - Final 07/04/18 22:56 Catheterized Urine - Final Medications List Reviewed: Yes Assessment And Plan - Current Problems (Diagnosis) (1) Lymphedema Current Visit: No Status: Acute Plan: Acute on chronic lymphedema with now cellulitis of the lower extremity and arms. -arms and legs still with lymphatic drainage -continue with IV antibiotics at this time -wound culture from the hip area positive for MRSA -will follow up with primary care provider tomorrow along with wound care as well (2) COPD (chronic obstructive pulmonary disease) Current Visit: No Status: Chronic Qualifiers: COPD type: chronic bronchitis Chronic bronchitis type: mucopurulent Qualified Code(s): J41.1 - Mucopurulent chronic bronchitis (3) Depression Current Visit: No Status: Chronic Qualifiers: Depression Type: unspecified (4) GERD (gastroesophageal reflux disease) Current Visit: No Status: Chronic Qualifiers: Esophagitis presence: without esophagitis (5) HTN (hypertension) Onset Date: 04/13/17 Current Visit: No Status: Chronic Qualifiers: Hypertension type: essential hypertension - Plan Pending clinical improvement at this time. Will continue with IV antibiotics. Wound care. Discharge Plan: Home Plan to discharge in: 48 Hours - Code Status/Comfort Care Code Status Assessed: Yes Critical Care: No
[2018-07-09] MEDS: CLINDAMYCIN INJ 900 MG in NA CHLORIDE 0.9% 50 ML IV SCH ×3 (00:59→16:14)
[2018-07-09] MEDS: HYDROCODONE/APAP 7.5/325 MG TAB PO PRN ×2 (04:13→21:24)
[2018-07-09] MEDS: CARVEDILOL 12.5 MG TAB PO SCH ×2 (09:00→21:00)
[2018-07-09] MEDS: ENOXAPARIN 30 MG/0.3 ML SQ SCH (09:39)
[2018-07-09] MEDS: POTASSIUM CL SA 10 MEQ TAB PO SCH (09:39)
[2018-07-09] MEDS: CITALOPRAM 10 MG TABLET PO SCH (09:39)
[2018-07-09] MEDS: PANTOPRAZOLE 40MG TABLET PO SCH (09:40)
[2018-07-09] MEDS: DOXYCYCLINE 100 MG CAP PO SCH ×2 (09:40→21:24)
[2018-07-09] MEDS: FUROSEMIDE 40 MG TABLET PO SCH ×2 (09:40→16:15)
[2018-07-09 14:33] LABS: Absolute Lymphocytes (CBC) 0.4 K/uL (0.7-4.9); Absolute Monocytes 0.8 K/uL (0.1-1.3); Absolute Neutrophil 5.4 K/uL (1.8-8.0); Basophils % 0.5 % (0-1.3); Eosinophils % 11.6 % (0-4.4); Hematocrit 34.4 % (36.0-45.0); Lymphocytes % 5.5 % (15.3-44.8); MPV 6.1 fL (7.6-11.3); Monocytes % 10.5 % (3.3-12.3); RBC Red Blood Cell Count 3.39 M/uL (3.86-4.86)
[2018-07-09 14:49] LABS: Potassium 4.1 mmol/L (3.5-5.1)
--- NOTE | 2018-07-09 21:19 | CON ---
History Of Present Illness: I was consulted for infection of the left hip with possible cellulitis o r an abscess. The patient denies any headache, nausea, vomiting, chest pain, abdominal pain, constip ation, diarrhea. The patient came to primary care office where she was diagnosed with diagnosis of c ellulitis. As per patient, she had multiple surgeries and IV vancomycin treatment for her left hip i nfection and wound. She also has significant history of lymphedema. The patient denies any other me dical problems at this time except kidney problems, abscess to the left hip, hip replacement, multipl e repairs, congestive heart failure. Currently, the patient is being treated with clindamycin and do xycycline. Allergies: INCLUDE CEFTRIAXONE, VANCOMYCIN, MEPERIDINE, HYDROMORPHONE. Review of Systems: A 10-point review was performed. Physical Examination: General: This is a 72-year-old female, lying in bed, not in any acute cardiopulmonary distress. Vital Signs: Temperature 97, pulse 60, respirations 16, blood pressure 115/57. HEENT: Unremarkable. Neck: Supple. Lungs: Basal crackles. Heart: S1, S2. Regular. Abdomen: Soft, nontender. Bowel sounds present. Extremity: 3+ nonpitting edema. Erythematous changes noted to the left hip with large scar tissue a nd small drainage noted also at the left hip trochanter area. Laboratory Data: WBC 7.5, hemoglobin 11.4, platelets are 230. Chemistry shows sodium 139, potassium 4.1, chloride 105, bicarb 30, BUN 20, creatinine 1.44, glucose 81. Micro data: Wound cultures are growing MRSA. Chest x-ray shows small to enlarged left pleural effusion. Bilateral interstitial edis g opacities appear unchanged. Assessment And Plan: A 72-year-old female with renal insufficiency and multiple surgeries to the lef t hip, coming in with cellulitis of left hip with possible abscess. Consider getting MRI of the left hip region to rule out any bone infection or abscess. Continue doxycycline and clindamycin. We gulshan l follow the patient as needed. Thank you, Dr. Randall and for consult. ERICA/ABYL Voice ID: [id number] Report ID: [id number]
[2018-07-10] MEDS: CLINDAMYCIN INJ 900 MG in NA CHLORIDE 0.9% 50 ML IV SCH ×3 (00:20→16:39)
[2018-07-10] MEDS: HYDROCODONE/APAP 7.5/325 MG TAB PO PRN ×3 (03:59→20:26)
[2018-07-10] MEDS: POTASSIUM CL SA 10 MEQ TAB PO SCH (09:46)
[2018-07-10] MEDS: PANTOPRAZOLE 40MG TABLET PO SCH (09:47)
[2018-07-10] MEDS: DOXYCYCLINE 100 MG CAP PO SCH ×2 (09:47→20:25)
[2018-07-10] MEDS: FUROSEMIDE 40 MG TABLET PO SCH ×2 (09:47→16:39)
[2018-07-10] MEDS: CARVEDILOL 12.5 MG TAB PO SCH ×2 (09:48→20:25)
[2018-07-10] MEDS: ENOXAPARIN 30 MG/0.3 ML SQ SCH (09:49)
[2018-07-10] MEDS: CITALOPRAM 10 MG TABLET PO SCH (09:49)
--- NOTE | 2018-07-10 17:00 | PN ---
Date of Progress Note: 07/09/2018 The patient feels somewhat better today. There is drainage from her right upper arm and from the int ubated cellulitic hip area, however, the latter did show Staph coagulase positive. Awaiting final di agnosis whether it is MRSA or not. Breast size is also decreased somewhat. Depending on the culture results, possibility of using vancomycin and closely monitoring the creatinine will be considered if the clindamycin is not taking care of the bacteria. Blood pressure is stabilized as well. HR/MODL Voice ID: [id number] Report ID: [id number]
[2018-07-11] MEDS: CLINDAMYCIN INJ 900 MG in NA CHLORIDE 0.9% 50 ML IV SCH ×2 (01:01→09:21)
[2018-07-11] MEDS: HYDROCODONE/APAP 7.5/325 MG TAB PO PRN ×2 (02:17→09:17)
[2018-07-11] MEDS: FUROSEMIDE 40 MG TABLET PO SCH ×2 (09:00→17:37)
[2018-07-11] MEDS: CARVEDILOL 12.5 MG TAB PO SCH (09:19)
[2018-07-11] MEDS: DOXYCYCLINE 100 MG CAP PO SCH (09:20)
[2018-07-11] MEDS: PANTOPRAZOLE 40MG TABLET PO SCH (09:20)
[2018-07-11] MEDS: POTASSIUM CL SA 10 MEQ TAB PO SCH (09:20)
[2018-07-11] MEDS: CITALOPRAM 10 MG TABLET PO SCH (09:21)
[2018-07-11] MEDS: ENOXAPARIN 30 MG/0.3 ML SQ SCH (09:21)
[2018-07-11 11:40] VITALS: O2SAT 95
[2018-07-11 16:07] VITALS: TEMP 98.6
--- NOTE | 2018-07-11 16:42 | PN ---
Subjective: The patient is lying in bed. Denies any headache, nausea, vomiting, chest pain, abdomin al pain, constipation, or diarrhea. Objective: Vital signs: Temperature 98, pulse 62, respirations 16, blood pressure 115/62. Lungs: Basal crackles. Heart: S1, S2. Regular. Abdomen: Soft. Bowel sounds present. Extremity: 3+ nonpitting edema to the lower extremity. Small drainage noted on the left hip region. Also swelling noted on the right arm. Laboratory Data: Shows WBC 7.5, hemoglobin 11.4, platelets are 230. Chemistry shows sodium 139, pot assium 4.1, chloride 105, bicarb 30, BUN 20, creatinine 1.4, glucose is 81. Micro data is growing bl ood cultures MRSA. Assessment And Plan: Left hip abscess versus cellulitis, possible osteomyelitis. Continue IV antibi otic total of 6 weeks. Consider getting a scan of the hip if the patient does not improve. We will follow the patient as needed. Bacteremia secondary to methicillin-resistant staphylococcus aureus. The patient currently being treated with doxycycline and clindamycin. We will follow the patient as needed. ERICA/JONAS Voice ID: [id number] Report ID: [id number]
[2018-07-11] MEDS ORDERED: CLINDAMYCIN INJ 900 MG in NA CHLORIDE 0.9% 50 ML IV ONE (17:00)
[2018-07-11 17:37] VITALS: BP 115/56
--- NOTE | 2018-07-12 17:25 | PN ---
Date of Progress Note: 07/10/2018 The patient has considerable improvement in the cellulitis of her leg and multiple abrasions. Breast size has gone down somewhat and decreased lymphatic fluid from her arm. Her blood pressure is more stabilized; however, still quite low and adjustments will be made. She could be discharged tomorrow on oral medications awaiting the final culture and sensitivity from the buttock lesion in regard to M RSA. HR/MODL Voice ID: [id number] Report ID: [id number]
== END 2018-07-11 19:50 | disposition home or self-care (01) | DRG 603 ==
LOC: 2ND 14:48 → OBSVTOIN 07-07 15:47
PROVIDERS: ADMIT Family Medicine; ATTEND Family Medicine
DX: L03.114 Cellulitis of left upper limb (principal); L03.116 Cellulitis of left lower limb; L03.115 Cellulitis of right lower limb; R78.81 Bacteremia; L03.113 Cellulitis of right upper limb; I95.9 Hypotension, unspecified; B95.62 Methicillin resistant Staphylococcus aureus infection as the cause of diseases classified elsewhere; I89.0 Lymphedema, not elsewhere classified; J44.9 Chronic obstructive pulmonary disease, unspecified; F32.9 Major depressive disorder, single episode, unspecified; K21.9 Gastro-esophageal reflux disease without esophagitis; I11.0 Hypertensive heart disease with heart failure; I50.9 Heart failure, unspecified; N28.9 Disorder of kidney and ureter, unspecified; Z96.649 Presence of unspecified artificial hip joint
CPT/HCPCS: 36415; 71046; 80048; 81003; 85025; 87070; 87077; 87086; 87088; 87186; 87205; 93005; G0378; J1650

== ENCOUNTER 2018-09-10 11:39 | Inpatient (IN) | payer OTHER ==
--- OUTSIDE RECORDS SUMMARY | 2018-09-10 11:47 | XMS REPORT | Clinical Summary ---
:1945 Author Organization [facility] Address [address] [place] [address] Care Team Providers Name Role Phone Jaylon [...] AGE 65 AND OVER 2010 INFLUENZA VACCINE 11/08/2018 01/14/2016 Implants Implanted Type Area Machine Heel Sprayer Device Shelf Model / Identifier Expiration Serial / Lot Date Body Prox Cone Hiofst Sz A 50mm Macarena - [id number] Hip Joint Left: [employer] 06/02/2026 [id number] / Implanted: 06/15/2016 (Quantity not on file) Implants Hip / [id number] Head Fml Sld Modlr Co-Cr 40x-6mm R6e-Maxdpw - [id number] Hip Joint Left: [employer] 03/01/2026 [id number] / Implanted: 06/15/2016 (Quantity not on file) Implants Hip / [id number] G7 Neutral E1 Liner 40mm I - [id number] IPM IMPLANT Left: [employer], [employer] [id number] / Implanted: 06/15/2016 (Quantity not on file) DEVICES Hip / [id number] Screw G7 6.5x25 - [id number] IPM IMPLANT Left: [employer] 05/24/2026 [id number] / Implanted: 06/15/2016 (Quantity not on file) DEVICES Hip / [id number] Screw G7 6.5x25 - [id number] IPM IMPLANT Left: [employer] 05/24/2026 [id number] / Implanted: 06/15/2016 (Quantity not on file) DEVICES Hip / [id number] Screw G7 6.5x20 - [id number] IPM IMPLANT Left: [employer], INC 02/23/2026 [id number] / Implanted: 06/15/2016 (Quantity not on file) DEVICES Hip / [id number] Screw G7 6.5x20 - [id number] IPM IMPLANT Left: [employer], INC 04/25/2026 [id number] / Implanted: 06/15/2016 (Quantity not on file) DEVICES Hip / [id number] Screw G7 6.5x60 - [id number] IPM IMPLANT Left: [employer], [employer] 09/23/2025 [id number] / Implanted: Qty: 1 on 06/15/2016 by Quique Fowler MD DEVICES Hip / Screw G7 6.5x35 - [id number] IPM IMPLANT Left: [employer], [employer] 06/02/2025 [id number] / Implanted: 06/15/2016 (Quantity not on file) DEVICES Hip / [id number] Screw G7 6.5x20 - [id number] IPM IMPLANT Left: [employer], [employer] 03/13/2026 [id number] / Implanted: 06/15/2016 (Quantity not on file) DEVICES Hip / [id number] G7 [place] Multihole 66mm I - [id number] IPM IMPLANT Left: [employer] [id number] / Implanted: 06/15/2016 (Quantity not on file) DEVICES Hip / [id number] Macarena 56x957bf Intlkng Dist - [id number] IPM IMPLANT Left: [employer], [employer] [id number] / Implanted: 06/15/2016 (Quantity not on file) DEVICES Hip / [id number] Screw Trans [place] 5.0x40mm - [id number] IPM IMPLANT Left: [employer], [employer] [id number] / Implanted: 06/15/2016 (Quantity not on file) DEVICES Hip / 5.1dwj98wm Ti Kaessmann Screw - [id number] IPM IMPLANT Left: [employer], [employer] [id number] / Implanted: 06/15/2016 (Quantity not on file) DEVICES Hip / 5.0ytx70te Ti Kaessmann Screw - [id number] [id number] IMPLANT Left: [employer] [id number] / Implanted: 06/15/2016 (Quantity not on file) DEVICES Hip / Cement Bone Full Dose Simplex P Radiopaque - [id number] Surgical Left: LINDA 06/07/2018 [id number] 1 010 / Implanted: Qty: 1 on 12/23/2015 by Quique Fowler MD Bone Cement Hip ORTHOPEDICS / HIPS-KNEES [id number] Cement Bone Full-Dose Premxd W/ Tobr Simplex P Pack 10/Ea - [id number] Surgical Left: LINDA 04/09/2017 [id number] 9 010 / Implanted: Qty: 1 on 12/23/2015 by Quique Fowler MD Bone Cement Hip ORTHOPEDICS / HIPS-KNEES [id number] Cement Bone Full-Dose Premxd W/ Tobr Simplex P Pack 10/Ea - [id number] Surgical Left: LINDA 02/07/2017 [id number] 9 010 / Implanted: Qty: 1 on 12/23/2015 by Quique Fowler MD Bone Cement Hip ORTHOPEDICS / HIPS-KNEES [id number] Cement Bone Full-Dose Premxd W/ Tobr Simplex P Pack 10/Ea - [id number] Surgical Left: LINDA 04/09/2017 [id number] 9 010 / Implanted: Qty: 1 on 12/23/2015 by Quique Fowler MD Bone Cement Hip ORTHOPEDICS / HIPS-KNEES [id number] Cement Bone Full-Dose Premxd W/ Tobr Simplex P Pack 10/Ea - [id number] Surgical Left: LINDA 05/10/2017 6197 9 010 / Implanted: Qty: 1 on 02/17/2016 by Quique Fowler MD Bone Cement Hip ORTHOPEDICS / HIPS-KNEES [id number] Cement Bone Full-Dose Premxd W/ Tobr Simplex P Pack 10/Ea - [id number] Surgical Left: LINDA 04/09/2017 6197 9 010 / Implanted: Qty: 1 on 02/17/2016 by Quique Fowler MD Bone Cement Hip ORTHOPEDICS / HIPS-KNEES [id number] Cement Bone Full-Dose Premxd W/ Tobr Simplex P Pack 10/Ea - [id number] Surgical Left: LINDA 07/08/2017 6197 9 010 / Implanted: Qty: 1 on 02/17/2016 by Quique Fowler MD Bone Cement Hip ORTHOPEDICS / HIPS-KNEES [id number] Cement Bone Full Dose Simplex P Radiopaque - [id number] Surgical Left: LINDA 09/07/2018 6191 1 010 / Implanted: Qty: 1 on 02/17/2016 by Quique Fowler MD Bone Cement Hip ORTHOPEDICS / HIPS-KNEES [id number] Cement Bone Full Dose Simplex P Radiopaque - [id number] Surgical Left: LINDA 06/07/2018 6191 1 010 / Implanted: Qty: 1 on 04/13/2016 by Quique Fowler MD Bone Cement Hip ORTHOPEDICS / HIPS-KNEES [id number] Cement Bone Full-Dose Premxd W/ Tobr Simplex P Pack 10/Ea - [id number] Surgical Left: LINDA 08/07/2017 6197 9 010 / Implanted: Qty: 1 on 04/13/2016 by Quique Fowler MD Bone Cement Hip ORTHOPEDICS / HIPS-KNEES [id number] Cement Bone Full-Dose Premxd W/ Tobr Simplex P Pack 10/Ea - [id number] Surgical Left: LINDA 08/07/2017 6197 9 010 / Implanted: Qty: 1 on 04/13/2016 by Quique Fowler MD Bone Cement Hip ORTHOPEDICS / HIPS-KNEES [id number] Cement Bone Full-Dose Premxd W/ Tobr Simplex P Pack 10/Ea - [id number] Surgical Left: LINDA 08/07/2017 6197 9 010 / Implanted: Qty: 1 on 04/13/2016 by Quique Fowler MD Bone Cement Hip ORTHOPEDICS / HIPS-KNEES [id number] Cement Bone Full-Dose Premxd W/ Tobr Simplex P Pack 10/Ea - [id number] Surgical Left: LINDA 08/07/2017 6197 9 010 / Implanted: Qty: 2 on 04/20/2016 by Quique Fowler MD Bone Cement Hip ORTHOPEDICS / HIPS-KNEES [id number] Cement Bone Full-Dose Premxd W/ Tobr Simplex P Pack 10/Ea - [id number] Surgical Left: LINDA 08/07/2017 6197 9 010 / Implanted: Qty: 1 on 04/20/2016 by Quique Fowler MD Bone Cement Hip ORTHOPEDICS / HIPS-KNEES [id number] Cement Bone Prep Univl Insrtr Sculp Fml [place] Suct - [id number] Surgical Left: LINDA 10/08/2020 [id number] / Implanted: Qty: 1 on 12/23/2015 by Quique Fowler MD Implants; Hip INSTRUMENTS / Expanders; [id number] Extenders; Surgical Wires Cement Bone Prep Univl Insrtr Sculp Fml [place] Suct Sm - [id number] Surgical Left: LINDA 12/09/2020 [id number] / Implanted: Qty: 1 on 02/17/2016 by Quique Fowler MD Implants; Hip INSTRUMENTS / Expanders; [id number] Extenders; Surgical Wires Cement Bone Prep Univl Insrtr Sculp Fml [place] Suct Sm - [id number] Surgical N/A: LINDA 01/08/2021 [id number] / Implanted: Qty: 1 on 04/20/2016 by Quique Fowler MD Implants; N/A INSTRUMENTS / Expanders; [id number] Extenders; Surgical Wires Procedures Procedure Name Priority [...] Routine 12/13/2017 5:26 PM CDT CELLS after 09/09/2017 Results Transfuse RBC (12/13/2017 5:28 PM CDT)Only the most recent of7 resultswithin the time period is included.after 09/09/2017 Insurance Payer Benefit Plan / Subscriber ID Effective Dates Phone Address Type Group [employer] xxxxxxxxxxx [facility] [place] M[facility]UFFIE t Advance Directives Patient has advance care planning documents, and code status on file. For more information, please contact:[place] [address] Code Status Date Activated Date Inactivated Comments [...]
[2018-09-10 12:37] LABS: Absolute Lymphocytes (CBC) 0.3 K/uL (0.7-4.9); Basophils % 0.1 % (0-1.3); Eosinophils % 0.7 % (0-4.4); Hematocrit 37.2 % (36.0-45.0); Lymphocytes % 3.4 % (15.3-44.8); Monocytes % 7.1 % (3.3-12.3)
[2018-09-10] MEDS ORDERED: NA CHLORIDE 0.9% 1,000 ML ONE ×2 (12:38→14:57)
[2018-09-10 12:45] LABS: Protime INR 1.67
--- NOTE | 2018-09-10 12:50 | RAD REPORT ---
EXAM DESCRIPTION: CT - Head C Spine Mpr Wo Con - 09/10/2018 12:38 pm CLINICAL HISTORY: Head and neck injury status post fall. Head and neck pain COMPARISON: None. TECHNIQUE: Computed axial tomography of the head and cervical spine was obtained. Sagittal and coronal reconstruction was performed. All CT scans are performed using dose optimization technique as appropriate and may include automated exposure control or mA/KV adjustment according to patient size. FINDINGS: An intracranial bleed is not seen. The ventricles are normal in caliber. An extra-axial fl uid collection is not noted.Fluid within the visualized sinuses and mastoids is not seen A cervical fracture is not visualized. No dislocation is noted. IMPRESSION: No acute intracranial abnormality is seen. A cervical fracture is not visualized. If the patient continues to have symptoms to suggest intracra nial /spinal cord pathology then MRI would be recommended
--- NOTE | 2018-09-10 13:00 | RAD REPORT ---
EXAM DESCRIPTION: Yanci Single View09/10/2018 12:54 pm CLINICAL HISTORY: Chest pain COMPARISON: June 2017 FINDINGS: The lungs appear clear of acute infiltrate. The heart is mildly to moderately enlarged Small to moderate left pleural effusion
[2018-09-10 13:01] LABS: ALT/SGPT 22 U/L (12-78); AST/SGOT 43 U/L (15-37); Albumin 2.2 g/dL (3.4-5.0); Alkaline Phosphatase 155 U/L (45-117); BUN Blood Urea Nitrogen 42 mg/dL (7-18); Bicarbonate 32 mmol/L (21-32); Bilirubin Direct 0.5 mg/dL (0-0.2); Bilirubin Total 0.9 mg/dL (0.2-1.0); Creatine Phosphokinase 33 U/L (26-192); Glucose Level 110 mg/dL (74-106); Lipase 75 U/L (73-393); Potassium 3.8 mmol/L (3.5-5.1); Protein, Total 6.7 g/dL (6.4-8.2); Sodium Level 139 mmol/L (136-145); Troponin (Emerg Dept Use Only) < 0.02 ng/mL (0.0-0.045)
--- NOTE | 2018-09-10 15:00 | EKG ---
Test Date: 2018-09-10 Test Time: 12:25:05 Clip Riveter: ZOEY MEASUREMENT RESULTS: Intervals: Rate: 128 NH: QRSD: 66 QT: 272 QTc: 397 [place]: P: NH: QRS: 91 T: 195 INTERPRETIVE STATEMENTS: Atrial fibrillation with rapid ventricular response Rightward axis Low voltage QRS Abnormal ECG Compared to ECG 07/04/2018 17:43:38 Right-axis deviation now present Low QRS voltage now present Electronically Signed On 09-10-18 14:59:54 CDT by Van Cheng
--- NOTE | 2018-09-10 15:28 | EDPHYS ---
Physician Documentation [facility] Name: Sandra Armas Age: 73 yrs Sex: Female : 1945 Arrival Date: 09/10/2018 Time: 11:48 Bed 20 Private MD: ED Physician Gerard Sotomayor HPI: 09/10 16:17 This 73 yrs old Female presents to ER via EMS with complaints of Fall Injury. gs 16:17 Details of fall: The patient fell from an upright position. Onset: The symptoms/episode gs began/occurred 1 week(s) ago. Associated injuries: The patient sustained injury to the head, neck injury, injury to the low back. Severity of symptoms: At their worst the symptoms were moderate, in the emergency department the symptoms are unchanged. The patient has experienced similar episodes in the past, a few times. The patient has not recently seen a physician. Historical: - Allergies: 11:55 Morphine; ph 11:55 Vancomycin; ph - PMHx: 11:55 Atrial Fib; Hypertension; Infection of Prosthetic Hip; Lung Cancer; lymphedema; ph - PSHx: 11:55 Bilateral hip replacements; Repair of left hip prosthesis; Tubal ligation; ph - Immunization history: Last tetanus immunization: unknown. - Social history:: The patient lives at home, Smoking status: Patient/guardian denies using tobacco. - Ebola Screening: : No symptoms or risks identified at this time. ROS: 16:17 All other systems are negative. gs Exam: 16:17 Head/Face: Normocephalic, atraumatic. Eyes: Pupils equal round and reactive to light, gs extra-ocular motions intact. Lids and lashes normal. Conjunctiva and sclera are non-icteric and not injected. Cornea within normal limits. Periorbital areas with no swelling, redness, or edema. ENT: Nares patent. No nasal discharge, no septal abnormalities noted. Tympanic membranes are normal and external auditory canals are clear. Oropharynx with no redness, swelling, or masses, exudates, or evidence of obstruction, uvula midline. Mucous membranes moist. Neck: Trachea midline, no thyromegaly or masses palpated, and no cervical lymphadenopathy. Supple, full range of motion without nuchal rigidity, or vertebral point tenderness. No Meningismus. Chest/axilla: Normal chest wall appearance and motion. Nontender with no deformity. No lesions are appreciated. 16:17 Respiratory: Lungs have equal breath sounds bilaterally, clear to auscultation and percussion. No rales, rhonchi or wheezes noted. No increased work of breathing, no retractions or nasal flaring. Abdomen/GI: Soft, non-tender, with normal bowel sounds. No distension or tympany. No guarding or rebound. No evidence of tenderness throughout. 16:17 Neuro: Awake and alert, GCS 15, oriented to person, place, time, and situation. Cranial nerves II-XII grossly intact. Motor strength 5/5 in all extremities. Sensory grossly intact. Cerebellar exam normal. Normal gait. 16:17 Constitutional: The patient appears alert, awake. 16:17 Cardiovascular: Rate: tachycardic, Rhythm: irregularly irregular, Pulses: no pulse deficits are appreciated. 16:17 Cardiovascular: Edema: 4+ edema to level of left upper thigh and right upper thigh, anasarca. 16:17 ECG was reviewed by the Attending Physician. 16:17 Back: vertebral tenderness, is appreciated at L3 and L4. 16:17 Skin: mild erythema venous stasis both le. Vital Signs: 11:49 BP 85 / 56; Pulse 134; Resp 20; Temp 97.8; Pulse Ox 88% on R/A; Weight 81.65 kg; Height ph 5 ft. 7 in. (170.18 cm); Pain 9/10; 13:54 BP 95 / 53; Pulse 122; Resp 18; Pulse Ox 95% on 2 lpm NC; ae4 15:00 BP 100 / 58; Pulse 122; Resp 20; Pulse Ox 94% on 2 lpm NC; ph 15:55 BP 91 / 60; Pulse 111; Resp 18; Pulse Ox 96% on 2 lpm NC; ph 16:50 BP 91 / 65; Pulse 108; Resp 18; Pulse Ox 97% on 2 lpm NC; ph 17:52 BP 100 / 50; Pulse 107; Resp 18; Pulse Ox 97% on 2 lpm NC; ph 18:28 BP 87 / 65; Pulse 108; Resp 18; Temp 97.9; Pulse Ox 97% on 2 lpm NC; ph 19:30 BP 94 / 57; Pulse 111; Resp 20; Pulse Ox 98% on 2 lpm NC; jb4 11:49 Body Mass Index 28.19 (81.65 kg, 170.18 cm) ph [place] Coma Score: 11:49 Eye Response: spontaneous(4). Verbal Response: oriented(5). Motor Response: obeys ph commands(6). Total: 15. 15:00 Eye Response: spontaneous(4). Verbal Response: oriented(5). Motor Response: obeys ph commands(6). Total: 15. 15:00 Eye Response: spontaneous(4). Verbal Response: oriented(5). Motor Response: obeys ph commands(6). Total: 15. 16:50 Eye Response: spontaneous(4). Verbal Response: oriented(5). Motor Response: obeys ph commands(6). Total: 15. 16:50 Eye Response: spontaneous(4). Verbal Response: oriented(5). Motor Response: obeys ph commands(6). Total: 15. 18:28 Eye Response: spontaneous(4). Verbal Response: oriented(5). Motor Response: obeys ph commands(6). Total: 15. 19:30 Eye Response: spontaneous(4). Verbal Response: oriented(5). Motor Response: obeys jb4 commands(6). Total: 15. Trauma Score (Adult): 11:49 Eye Response: spontaneous(1); Verbal Response: oriented(1); Motor Response: obeys ph commands(2); Systolic BP: > 89 mm Hg(4); Respiratory Rate: 10 to 29 per min(4); Favian Score: 15; Trauma Score: 12 15:00 Eye Response: spontaneous(1); Verbal Response: oriented(1); Motor Response: obeys ph commands(2); Systolic BP: > 89 mm Hg(4); Respiratory Rate: 10 to 29 per min(4); [place] Score: 15; Trauma Score: 12 15:00 Eye Response: spontaneous(1); Verbal Response: oriented(1); Motor Response: obeys ph commands(2); Systolic BP: > 89 mm Hg(4); Respiratory Rate: 10 to 29 per min(4); Favian Score: 15; Trauma Score: 12 16:50 Eye Response: spontaneous(1); Verbal Response: oriented(1); Motor Response: obeys ph commands(2); Systolic BP: > 89 mm Hg(4); Respiratory Rate: 10 to 29 per min(4); [place] Score: 15; Trauma Score: 12 16:50 Eye Response: spontaneous(1); Verbal Response: oriented(1); Motor Response: obeys ph commands(2); Systolic BP: > 89 mm Hg(4); Respiratory Rate: 10 to 29 per min(4); [place] Score: 15; Trauma Score: 12 18:28 Eye Response: spontaneous(1); Verbal Response: oriented(1); Motor Response: obeys ph commands(2); Systolic BP: > 89 mm Hg(4); Respiratory Rate: 10 to 29 per min(4); [place] Score: 15; Trauma Score: 12 19:30 Eye Response: spontaneous(1); Verbal Response: oriented(1); Motor Response: obeys jb4 commands(2); Systolic BP: > 89 mm Hg(4); Respiratory Rate: 10 to 29 per min(4); [place] Score: 15; Trauma Score: 12 MDM: 12:06 Patient medically screened. 16:17 Differential diagnosis: afib,mi,sepsis,fracture,contusion. Data reviewed: vital signs, nurses notes, old medical records, lab test result(s), EKG, radiologic studies. 09/10 12:09 Order name: Basic Metabolic Panel 09/10 12:09 Order name: Blood Culture Adult (2) 09/10 12:09 Order name: CBC with Diff 09/10 12:09 Order name: CPK 09/10 12:09 Order name: Lactate 09/10 12:09 Order name: LFT's 09/10 12:09 Order name: Lipase 09/10 12:09 Order name: Procalcitonin 09/10 12:09 Order name: Protime (+inr) 09/10 12:09 Order name: Troponin (emerg Dept Use Only) 09/10 12:09 Order name: Urine Microscopic Only 09/10 12:42 Order name: CBC with Automated Diff; Complete Time: 13:11 EDMS 09/10 12:50 Order name: Protime (+INR); Complete Time: 13:11 EDMS 09/10 12:52 Order name: Lactate; Complete Time: 13:11 EDMS 09/10 12:09 Order name: Chest Single View XRAY 09/10 12:12 Order name: CT Head C Spine 09/10 12:52 Order name: CT; Complete Time: 13:11 EDMS 09/10 13:01 Order name: RAD; Complete Time: 13:11 EDMS 09/10 13:02 Order name: Basic Metabolic Panel; Complete Time: 13:11 EDMS 09/10 13:02 Order name: Liver (Hepatic) Function; Complete Time: 13:11 EDMS 09/10 13:02 Order name: Creatine Phosphokinase; Complete Time: 13:11 EDMS 09/10 13:02 Order name: Troponin (Emerg Dept Use Only); Complete Time: 13:11 EDMS 09/10 13:02 Order name: Lipase; Complete Time: 13:11 EDMS 09/10 13:25 Order name: Procalcitonin; Complete Time: 14:39 EDMS 09/10 15:44 Order name: CT Stone Protocol 09/10 18:16 Order name: CT; Complete Time: 18:40 EDMS 09/10 12:09 Order name: Accucheck; Complete Time: 13:01 09/10 12:09 Order name: Cardiac monitoring; Complete Time: 12:12 09/10 12:09 Order name: EKG - Nurse/Tech; Complete Time: 12:30 09/10 12:09 Order name: IV Saline Lock - Large Bore; Complete Time: 12:30 09/10 12:09 Order name: Labs collected and sent; Complete Time: 12:30 09/10 12:09 Order name: O2 Per Protocol; Complete Time: 12:12 09/10 12:09 Order name: O2 Sat Monitoring; Complete Time: 12:12 gs EC:17 Rate is 128 beats/min. Rhythm is regular. QRS interval is normal. QT interval is gs normal. T waves are Flattened. Clinical impression: Atrial Fibrillation. Interpreted by me. Administered Medications: 12:20 Drug: NS 0.9% 1000 ml Route: IV; Rate: 1 bolus; Site: right antecubital; ph 13:21 Follow up: IV SiteChange: right hand; IV SiteChange Reason: Infiltration ph 13:45 Follow up: Response: No adverse reaction; IV Status: Completed infusion; IV Intake: ph 1000ml 14:45 Drug: NS 0.9% 1000 ml Route: IV; Rate: 1 bolus; Site: right hand; ae4 16:00 Follow up: Response: No adverse reaction; IV Status: Completed infusion; IV Intake: ph 1000ml 15:30 Drug: Digoxin 0.25 mg Route: IVP; Site: right hand; ph 16:00 Follow up: Response: No adverse reaction; Cardiac rhythm is unchanged ph 16:30 Drug: Lovenox 40 mg Route: Sub-Q; Site: right lower abdomen; ph 19:42 Follow up: Response: No adverse reaction ph 16:30 Drug: fentaNYL (PF) 25 mcg Route: IVP; Site: right hand; ph 16:36 Follow up: Response: No adverse reaction; Pain is unchanged, physician notified ph 16:36 Drug: amiodarone 150 mg Volume: 100 ml; Route: IVPB; Infused Over: 10 mins; Site: right ph hand; 16:50 Follow up: Response: No adverse reaction; IV Status: Completed infusion ph 16:37 Drug: fentaNYL (PF) 25 mcg Route: IVP; Site: right hand; ph 16:45 Follow up: Response: No adverse reaction; Pain is decreased ph 17:01 Drug: amiodarone 900 mg, D5W 500 ml Route: IVPB; Rate: 1 mg/min; Site: right hand; ph 19:42 Follow up: Response: No adverse reaction; Cardiac rhythm changed; IV Status: Infusion ph continued upon admission 17:56 Drug: fentaNYL (PF) 25 mcg Route: IVP; Site: right hand; ph 18:30 Follow up: Response: No adverse reaction; Pain is decreased ph Disposition: 09/10/18 15:27 Hospitalization ordered by Jaylon Randall for Inpatient Admission. Preliminary diagnosis are Paroxysmal atrial fibrillation, Hypotension, Dehydration, Fracture of first lumbar vertebra. - Bed requested for Intensive Care Unit. - Status is Inpatient Admission. jb4 - Condition is Stable. - Problem is new. - Symptoms have improved. UTI on Admission? No Critical care time excluding procedures: 16:17 Critical care time: Bedside Care: 10 minutes, Consultation: 10 minutes, Family Intervention: 10 minutes. Total time: 30 minutes Signatures: Dispatcher [employer] EDMS Lisa Allen Patricia, RN RN ph Ash Jameson RN RN jb4 Gerard Sotomayor MD MD gs Elliott, Andrea, RN RN ae4 Corrections: (The following items were deleted from the chart) 18:12 15:27 Hospitalization Ordered by Jaylon Randall MD for Inpatient Admission. Preliminary bd diagnosis is Paroxysmal atrial fibrillation; Hypotension; Dehydration. Bed requested for Telemetry/MedSurg (Inpatient). Status is Inpatient Admission. Condition is Stable. Problem is new. Symptoms have improved. UTI on Admission? No. gs 18:43 18:12 09/10/2018 15:27 Hospitalization Ordered by Jaylon Randall MD for Inpatient gs Admission. Preliminary diagnosis is Paroxysmal atrial fibrillation; Hypotension; Dehydration. Bed requested for Intensive Care Unit. Status is Inpatient Admission. Condition is Stable. Problem is new. Symptoms have improved. UTI on Admission? No. bd 20:11 18:43 09/10/2018 15:27 Hospitalization Ordered by Jaylon Randall MD for Inpatient jb4 Admission. Preliminary diagnosis is Paroxysmal atrial fibrillation; Hypotension; Dehydration; Fracture of first lumbar vertebra. Bed requested for Intensive Care Unit. Status is Inpatient Admission. Condition is Stable. Problem is new. Symptoms have improved. UTI on Admission? No. gs
--- NOTE | 2018-09-10 15:28 | ER ---
Nurse's Notes [facility] Name: Sandra Armas Age: 73 yrs Sex: Female : 1945 Arrival Date: 09/10/2018 Time: 11:48 Bed 20 Private MD: Diagnosis: Paroxysmal atrial fibrillation;Hypotension;Dehydration;Fracture of first lumbar vertebra Presentation: 09/10 11:50 Presenting complaint: EMS states: Pt w/ multiple falls, fell Sat and hit R side of ph forehead, fell today and hit back of head, denies LOC, c/o pain to stefani hips and lower back, denies dizziness or nausea, pt hypotensive and tachycardic for EMS, denies recent illness. Care prior to arrival: None. Mechanism of Injury: Fall from standing position. Trauma event details: Injury occurred in the [facility], Injury occurred: at home. 11:50 Method Of Arrival: EMS: [facility] 11:50 Acuity: RYAN 2 ph 11:55 Transition of care: patient was not received from another setting of care. Onset of ph symptoms was September 10, 2018. Risk Assessment: Do you want to hurt yourself or someone else? Patient reports no desire to harm self or others. Initial Sepsis Screen: Does the patient meet any 2 criteria? Systolic BP < 90 mmHg. Mean Arterial Pressure (MAP) < 65. HR > 90 bpm. Yes. 11:55 Initial Sepsis Screen: Does the patient have a suspected source of infection? Yes: Skin ph breakdown/wound Other: possible cellulitus. Trauma Activation: Not Applicable Physician: ED Physician; Name: ; Notified At: ; Arrived At: Physician: General Surgeon; Name: ; Notified At: ; Arrived At: Physician: Radiology; Name: ; Notified At: ; Arrived At: Physician: Respiratory; Name: ; Notified At: ; Arrived At: Physician: Lab; Name: ; Notified At: ; Arrived At: Historical: - Allergies: 11:55 Morphine; ph 11:55 Vancomycin; ph - PMHx: 11:55 Atrial Fib; Hypertension; Infection of Prosthetic Hip; Lung Cancer; lymphedema; ph - PSHx: 11:55 Bilateral hip replacements; Repair of left hip prosthesis; Tubal ligation; ph - Immunization history: Last tetanus immunization: unknown. - Social history:: The patient lives at home, Smoking status: Patient/guardian denies using tobacco. - Ebola Screening: : No symptoms or risks identified at this time. Screenin:51 Abuse screen: Denies threats or abuse. Denies injuries from another. Nutritional ph screening: No deficits noted. Tuberculosis screening: No symptoms or risk factors identified. Fall Risk Fall in past 12 months (25 points). Secondary diagnosis (15 points) impaired mobility, IV access (20 points). Ambulatory Aid- None/Bed Rest/Nurse Assist (0 pts). Gait- Weak (10 pts.). Mental Status- Oriented to own ability (0 pts). Total Anderson Fall Scale indicates High Risk Score (45 or more points). Fall prevention measures have been instituted. Side Rails Up X 2 Placed Close to Nursing Station Frequent Obs/Assessments Occuring Family Present and informed to notify staff if the need to leave the bedside As available patient and family educated on Fall Prevention Program and Strategies. Primary Survey: 12:00 NO uncontrolled hemorrhage observed. A: The patient is alert. Airway: patent. ae4 Breathing/Chest: Respiratory pattern: regular, Respiratory effort: spontaneous, unlabored, Breath sounds: clear, bilaterally. Circulation: Skin color: pink, Skin temperature: warm, dry. Disability Alert. Exposure/Environment: There is no evidence of uncontrolled external bleeding. 19:22 Reassessment Airway Airway Patent Breathing/Chest Respiratory pattern Regular ae4 Circulation Color [place] Temperature Warm Dry Disability Alert. Assessment: 12:00 General: Appears in no apparent distress. uncomfortable, Behavior is calm, cooperative, ph appropriate for age, Denies fever, chills. Pain: Complains of pain in lumbar area Pain radiates to left hip and right hip. Neuro: Level of Consciousness is awake, alert, obeys commands, Oriented to person, place, time, situation. Cardiovascular: Reports fatigue, lightheadedness, Denies chest pain, nausea, shortness of breath, vomiting, Capillary refill < 3 seconds in bilateral fingers Patient's skin is warm and dry. Edema is 2+ to right forearm, right wrist, waist, left ankle, left foot, left forearm, left wrist, right ankle and right foot Rhythm is atrial fibrillation with rapid ventricular response. Respiratory: Airway is patent Respiratory effort is even, unlabored, Respiratory pattern is regular, symmetrical, Denies cough, shortness of breath. GI: Patient currently denies abdominal pain, diarrhea, nausea, vomiting. Derm: Skin is intact, Skin is pink, warm \T\ dry. Derm: skin to stefani lower legs dry and scaly in appearance. Musculoskeletal: Circulation, motion, and sensation intact. Range of motion: intact in all extremities, Swelling present in abdomen, right arm, left arm, right leg and left leg. 13:00 Reassessment: Patient appears in no apparent distress at this time. No changes from previously documented assessment. Patient and/or family updated on plan of care and expected duration. Pain level reassessed. Patient is alert, oriented x 3, equal unlabored respirations, skin warm/dry/pink. 14:00 Reassessment: Patient appears in no apparent distress at this time. Patient and/or ph family updated on plan of care and expected duration. Pain level reassessed. Patient is alert, oriented x 3, equal unlabored respirations, skin warm/dry/pink. 15:30 Reassessment: Patient appears in no apparent distress at this time. Patient and/or ph family updated on plan of care and expected duration. Pain level reassessed. Patient is alert, oriented x 3, equal unlabored respirations, skin warm/dry/pink. Pt reports back pain 9/10, ERP notified, see MAR. 16:45 Reassessment: Pt report that back pain has decreased to 5/10. ph 17:45 Reassessment: Patient appears in no apparent distress at this time. Patient and/or ph family updated on plan of care and expected duration. Pain level reassessed. Patient is alert, oriented x 3, equal unlabored respirations, skin warm/dry/pink. Pt taken to CT via stretcher, taken on monitor w/ amiodarone running, accompanied by RN. 18:55 Reassessment: Report called to Patricia REA in ICU. ph 19:40 Reassessment: Patient appears in no apparent distress at this time. Patient and/or jb4 family updated on plan of care and expected duration. Pain level reassessed. Patient is alert, oriented x 3, equal unlabored respirations, skin warm/dry/pink. PT taken to ICU Via stretcher on monitor, w/ chart and amiodarone paused during transfer. Vital Signs: 11:49 BP 85 / 56; Pulse 134; Resp 20; Temp 97.8; Pulse Ox 88% on R/A; Weight 81.65 kg; Height ph 5 ft. 7 in. (170.18 cm); Pain 9/10; 13:54 BP 95 / 53; Pulse 122; Resp 18; Pulse Ox 95% on 2 lpm NC; ae4 15:00 BP 100 / 58; Pulse 122; Resp 20; Pulse Ox 94% on 2 lpm NC; ph 15:55 BP 91 / 60; Pulse 111; Resp 18; Pulse Ox 96% on 2 lpm NC; ph 16:50 BP 91 / 65; Pulse 108; Resp 18; Pulse Ox 97% on 2 lpm NC; ph 17:52 BP 100 / 50; Pulse 107; Resp 18; Pulse Ox 97% on 2 lpm NC; ph 18:28 BP 87 / 65; Pulse 108; Resp 18; Temp 97.9; Pulse Ox 97% on 2 lpm NC; ph 19:30 BP 94 / 57; Pulse 111; Resp 20; Pulse Ox 98% on 2 lpm NC; jb4 11:49 Body Mass Index 28.19 (81.65 kg, 170.18 cm) ph Favian Coma Score: 11:49 Eye Response: spontaneous(4). Verbal Response: oriented(5). Motor Response: obeys ph commands(6). Total: 15. 15:00 Eye Response: spontaneous(4). Verbal Response: oriented(5). Motor Response: obeys ph commands(6). Total: 15. 15:00 Eye Response: spontaneous(4). Verbal Response: oriented(5). Motor Response: obeys ph commands(6). Total: 15. 16:50 Eye Response: spontaneous(4). Verbal Response: oriented(5). Motor Response: obeys ph commands(6). Total: 15. 16:50 Eye Response: spontaneous(4). Verbal Response: oriented(5). Motor Response: obeys ph commands(6). Total: 15. 18:28 Eye Response: spontaneous(4). Verbal Response: oriented(5). Motor Response: obeys ph commands(6). Total: 15. 19:30 Eye Response: spontaneous(4). Verbal Response: oriented(5). Motor Response: obeys jb4 commands(6). Total: 15. Trauma Score (Adult): 11:49 Eye Response: spontaneous(1); Verbal Response: oriented(1); Motor Response: obeys ph commands(2); Systolic BP: > 89 mm Hg(4); Respiratory Rate: 10 to 29 per min(4); [place] Score: 15; Trauma Score: 12 15:00 Eye Response: spontaneous(1); Verbal Response: oriented(1); Motor Response: obeys ph commands(2); Systolic BP: > 89 mm Hg(4); Respiratory Rate: 10 to 29 per min(4); Favian Score: 15; Trauma Score: 12 15:00 Eye Response: spontaneous(1); Verbal Response: oriented(1); Motor Response: obeys ph commands(2); Systolic BP: > 89 mm Hg(4); Respiratory Rate: 10 to 29 per min(4); [place] Score: 15; Trauma Score: 12 16:50 Eye Response: spontaneous(1); Verbal Response: oriented(1); Motor Response: obeys ph commands(2); Systolic BP: > 89 mm Hg(4); Respiratory Rate: 10 to 29 per min(4); [place] Score: 15; Trauma Score: 12 16:50 Eye Response: spontaneous(1); Verbal Response: oriented(1); Motor Response: obeys ph commands(2); Systolic BP: > 89 mm Hg(4); Respiratory Rate: 10 to 29 per min(4); [place] Score: 15; Trauma Score: 12 18:28 Eye Response: spontaneous(1); Verbal Response: oriented(1); Motor Response: obeys ph commands(2); Systolic BP: > 89 mm Hg(4); Respiratory Rate: 10 to 29 per min(4); [place]avian Score: 15; Trauma Score: 12 19:30 Eye Response: spontaneous(1); Verbal Response: oriented(1); Motor Response: obeys jb4 commands(2); Systolic BP: > 89 mm Hg(4); Respiratory Rate: 10 to 29 per min(4); [place] Score: 15; Trauma Score: 12 ED Course: 11:48 Patient arrived in ED. ph 11:50 Gerard Sotomayor MD is Attending Physician. gs 11:53 Triage completed. ph 11:56 Arm band placed on Patient placed in an exam room, on a stretcher, on oxygen, on ph cardiac rn, on pulse oximetry. 12:00 Patient has correct armband on for positive identification. Placed in gown. Bed in low ph position. Call light in reach. Side rails up X2. manager monitoring on. Pulse ox on. NIBP on. Door closed. Noise minimized. Warm blanket given. Head of bed elevated. 12:00 Oxygen administration via nasal cannula \T\ 2L/min. Thermoregulation: warm blanket given ph to patient. 12:15 First set of blood cultures drawn by me. jb1 12:16 Erika Faith RN is Primary Nurse. ph 12:28 EKG done, by library information technician. reviewed by Gerard Sotomayor MD. sm3 12:29 Initial lab(s) drawn, by me, sent to lab. Inserted saline lock: 22 gauge in right jb1 antecubital area, using aseptic technique. Blood collected. 12:30 Second set of blood cultures drawn by me. jb1 12:51 X-ray completed. Portable x-ray completed in exam room. Patient tolerated procedure sw well. 15:25 Jaylon Randall MD is Hospitalizing Provider. gs 19:38 No provider procedures requiring assistance completed. ph 19:39 Inserted saline lock: 22 gauge in right hand, using aseptic technique. Patient ph admitted, IV remains in place. Administered Medications: 12:20 Drug: NS 0.9% 1000 ml Route: IV; Rate: 1 bolus; Site: right antecubital; ph 13:21 Follow up: IV SiteChange: right hand; IV SiteChange Reason: Infiltration ph 13:45 Follow up: Response: No adverse reaction; IV Status: Completed infusion; IV Intake: ph 1000ml 14:45 Drug: NS 0.9% 1000 ml Route: IV; Rate: 1 bolus; Site: right hand; ae4 16:00 Follow up: Response: No adverse reaction; IV Status: Completed infusion; IV Intake: ph 1000ml 15:30 Drug: Digoxin 0.25 mg Route: IVP; Site: right hand; ph 16:00 Follow up: Response: No adverse reaction; Cardiac rhythm is unchanged ph 16:30 Drug: Lovenox 40 mg Route: Sub-Q; Site: right lower abdomen; ph 19:42 Follow up: Response: No adverse reaction ph 16:30 Drug: fentaNYL (PF) 25 mcg Route: IVP; Site: right hand; ph 16:36 Follow up: Response: No adverse reaction; Pain is unchanged, physician notified ph 16:36 Drug: amiodarone 150 mg Volume: 100 ml; Route: IVPB; Infused Over: 10 mins; Site: right ph hand; 16:50 Follow up: Response: No adverse reaction; IV Status: Completed infusion ph 16:37 Drug: fentaNYL (PF) 25 mcg Route: IVP; Site: right hand; ph 16:45 Follow up: Response: No adverse reaction; Pain is decreased ph 17:01 Drug: amiodarone 900 mg, D5W 500 ml Route: IVPB; Rate: 1 mg/min; Site: right hand; ph 19:42 Follow up: Response: No adverse reaction; Cardiac rhythm changed; IV Status: Infusion ph continued upon admission 17:56 Drug: fentaNYL (PF) 25 mcg Route: IVP; Site: right hand; ph 18:30 Follow up: Response: No adverse reaction; Pain is decreased ph Intake: 11:49 PO: 0ml; Total: 0ml. ph 13:45 IV: 1000ml; Total: 1000ml. ph 15:00 IV: 2000ml (IV Fluid); Total: 3000ml. ph 16:00 IV: 1000ml; Total: 4000ml. ph Output: 11:49 Urine: 0ml; Total: 0ml. ph Outcome: 15:27 Decision to Hospitalize by Provider. 19:39 Admitted to ICU accompanied by nurse, via stretcher, room 1, with oxygen, on monitor, ph with chart, Report called to Patricia REA 19:39 critical 19:39 Instructed on the need for admit. 19:40 Patient's length of stay in the Emergency Department was greater than 2 hours. pt ph admitted to ICUPatient's length of stay extended due to 20:11 Patient left the ED. jb4 Signatures: Vaibhav Dacosta jb1 Erika Faith RN RN ph Olga Peterson James, RN RN jb4 Gerard Sotomayor MD MD Swathi Ford [facility] [place] Hussein RN RN ae4
[2018-09-10] MEDS ORDERED: DIGOXIN 0.25 MG/ML AMP ONE (15:47)
[2018-09-10] MEDS ORDERED: AMIODARONE HCL 150 MG in D5W 100 ML IV STA (16:09)
[2018-09-10] MEDS ORDERED: FENTANYL CITR 100 MCG/2 ML ONE (16:15)
[2018-09-10] MEDS ORDERED: ENOXAPARIN 40 MG/0.4 ML SQ ONE (16:16)
--- NOTE | 2018-09-10 18:13 | RAD REPORT ---
EXAM DESCRIPTION: CT - Stone Protocol - 09/10/2018 5:33 pm CLINICAL HISTORY: Abdominal pain. COMPARISON: None. TECHNIQUE: Computed axial tomography of the abdomen pelvis was obtained without oral or IV contrast. Lack of IV and oral contrast limits evaluation of solid organs, bowel, and vessels. Coronal reformat george images were obtained and reviewed. All CT scans are performed using dose optimization technique as appropriate and may include automated exposure control or mA/KV adjustment according to patient size. FINDINGS: A renal calculus is not seen. An ureteral calculus is not noted. A bladder calculus is not present. The liver, spleen, pancreas and adrenals appear grossly normal There is no evidence of diverticulitis. Diffuse edema within the subcutaneous tissues. Bilateral hip arthroplasties. Artifact from the prosthesis obscures detail within the lower pelvis. Small amount of ascites Mild to moderate acute/subacute compression fracture L1 vertebral body estimated to be 20% loss of he ight Small right pleural effusion. Left lower lobe atelectasis Small pericardial effusion Cortical irregularity involves the right superior pubic ramus as well as the right greater trochanter IMPRESSION: Negative for a genitourinary calculus Mild to moderate acute/subacute compression fracture L1 vertebral body Cortical irregularity involving right superior pubic ramus and greater trochanter right femur suspici ous for nondisplaced fractures
[2018-09-10] MEDS: HYDROCODONE/APAP 5/325 MG TAB PO PRN (20:12)
--- NOTE | 2018-09-10 20:24 | CON ---
Additional Attending Physician: Dr. Sotomayor. Reason For Consult: Atrial fibrillation, hypotension. History Of Present Illness: For about a week, Mrs. Armas has been having dizziness and palpitations. She has had atrial fib in the past, was in sinus rhythm in May. She thinks she has been in si nus rhythm up until about a week ago when she started having falling spells. Today, she fell and as soon as she hit the floor she was in a sitting position. She had intense pain in her lower back and in her legs and thighs and the suspicion is that she may have had a compression fracture. I am sutton d because she has atrial fibrillation again. She has had AFib in the past, was on Bystolic to contro l it. Presently, her blood pressure is low, it is 91/70; heart rate is about 120, irregularly irregu lar. She has a past medical history of lymphedema, peripheral vascular disease, atrial fib. We do n ot seem to have a list of her outpatient medications. She is allergic to morphine and vancomycin. S he has a history of infection of prosthetic hip, history of lung cancer, severe lymphedema. She has had bilateral hip replacements and the left has been removed and treated with antibiotics. Physical Examination: General: The patient appears to be quite uncomfortable with pain in her back. Lungs: Clear. Heart: Irregularly irregular, going about 110 beats per minute. Abdomen: Soft. Extremities: Reveal edema. There is a very woody, thick, irregular appearance of the skin of her sh ins. She has decreased pulses in her feet. Diagnostic Data: A chest x-ray does not show pulmonary edema. There is a small left pleural effusio n. Impression: Mrs. Armas has new-onset atrial fibrillation that is probably why she has fallen. She h as not been on anticoagulation. She has probably been in AFib for a week, so doing an immediate card ioversion would carry a lot of risks. I am going to suggest that we give her IV amiodarone at loadin g dose and then a drip and anticoagulate her while we workup what might be wrong with the bones in he r hip and back and consider a cardioversion after a few days of being on anticoagulation if it has no t occurred already spontaneously or with medication. ISHAN/JONAS Voice ID: [id number] Report ID: [id number]
[2018-09-11] MEDS: FENTANYL CITR 100 MCG/2 ML IV PRN ×4 (00:28→16:35)
[2018-09-11 05:14] LABS: Absolute Lymphocytes (CBC) 0.4 K/uL (0.7-4.9); Basophils % 0.7 % (0-1.3); Eosinophils % 2.9 % (0-4.4); Hematocrit 34.9 % (36.0-45.0); Lymphocytes % 5.8 % (15.3-44.8); MPV 7.3 fL (7.6-11.3); Monocytes % 9.8 % (3.3-12.3); RBC Red Blood Cell Count 3.53 M/uL (3.86-4.86)
[2018-09-11 05:25] LABS: Potassium 3.6 mmol/L (3.5-5.1)
[2018-09-11] MEDS: HYDROCODONE/APAP 5/325 MG TAB PO PRN ×4 (06:12→20:31)
--- NOTE | 2018-09-11 07:33 | EKG ---
Test Date: 2018-09-11 Test Time: 07:21:15 Tire Maintenance Technician: CHERRY MEASUREMENT RESULTS: Intervals: Rate: 109 MN: QRSD: 74 QT: 286 QTc: 385 [place]: P: MN: QRS: 88 T: 202 INTERPRETIVE STATEMENTS: Atrial fibrillation with rapid ventricular response Low voltage QRS Nonspecific ST and T wave abnormality, probably digitalis effect Abnormal ECG Compared to ECG 09/10/2018 12:25:05 ST (T wave) deviation now present Right-axis deviation no longer present Electronically Signed On 09-11-18 07:33:07 CDT by Van Cheng
[2018-09-11] MEDS: ENOXAPARIN 100 MG/ML SYR SQ SCH (08:27)
[2018-09-11] MEDS ORDERED: ASPIRIN EC 81 MG TAB PO SCH (09:00)
[2018-09-11] MEDS ORDERED: ENOXAPARIN 80 MG/0.8 ML SQ SCH (09:00)
--- NOTE | 2018-09-11 12:54 | ECHO ---
HEIGHT: 5 ft 7 in WEIGHT: 193 lb 0 oz DATE OF STUDY: 09/11/[address]: Van Cheng MD 2-DIMENSIONAL: YES M.MODE: YES DOPPLER: YES COLOR FLOW: YES TDS: NO PORTABLE: YES DEFINITY: NO BUBBLE STUDY: NO DIAGNOSIS: ATRIAL FIBRILLATION CARDIAC HISTORY: CATHERIZATION: NO SURGERY: NO PROSTHETIC VALVE: NO PACEMAKER: NO MEASUREMENTS (cm) DIASTOLIC (NORMALS) SYSTOLIC (NORMALS) IVSd 1.3 (0.6-1.2) LA Diam 4.1 (1.9-4.0) LVEF 59% LVIDd 2.7 (3.5-5.7) LVIDs 1.9 (2.0-3.5) %FS 30% LVPWd 1.4 (0.6-1.2) Ao Diam 2.6 (2.0-3.7) 2 DIMENSIONAL ASSESSMENT: RIGHT ATRIUM: NORMAL LEFT ATRIUM: DILATED RIGHT VENTRICLE: NORMAL LEFT VENTRICLE: LEFT VENTRICULAR HYPERTROPHY TRICUSPID VALVE: NORMAL MITRAL VALVE: MITRAL ANNULAR CALCIFICATION PULMONIC VALVE: NORMAL AORTIC VALVE: SCLEROSIS PERICARDIAL EFFUSION: NONE AORTIC ROOT: NORMAL LEFT VENTRICULAR WALL MOTION: DECREASED LEFT VENTRICULAR COMPLIANCE. DOPPLER/COLOR FLOW: MILD TRICUSPID REGURGITATION. NORMAL RIGHT VENTRICULAR SYSTOLIC PRESSURE. COMMENTS: LEFT VENTRICULAR HYPERTROPHY CONCENTRIC. NORMAL LEFT VENTRICULAR EJECTION FRACTION. DECREASED LEFT VENTRICULAR COMPLIANCE. LEFT ATRIAL ENLARGEMENT. NO THROMBUS. MITRAL ANNULAR CALCIFICATION. AORTIC SCLEROSIS WITH NO STENOSIS. TECHNOLOGIST: Payal PINTO
--- NOTE | 2018-09-11 15:25 | RAD REPORT ---
EXAM DESCRIPTION: US - Abdomen Exam Complete - 09/11/2018 3:01 pm CLINICAL HISTORY: Abdominal pain. r/o ileus or ascites COMPARISON: RP EXAM COMPLETE dated 12/18/2014RP EXAM COMPLETE dated 12/18/2014; Stone Protocol dated FINDINGS: Nodular appearance to the liver parenchyma is noted suggesting mild cirrhosis. Mild free f luid is seen along the right hepatic edge Small stones are present gallbladder. Common bile duct is normal in caliber measuring 6 mm. Both kidneys are normal in size, shape and echotexture. No hydronephrosis, focal lesion of concern or perinephric fluid. The spleen is normal in size measuring 10 cm. The pancreas and aorta are obscured by bowel gas. The visualized aspects of the IVC are grossly normal. IMPRESSION: Cholelithiasis. Mild liver cirrhosis with a small amount free fluid along the right hepatic edge.
[2018-09-12] MEDS: HYDROCODONE/APAP 5/325 MG TAB PO PRN ×4 (00:47→18:12)
[2018-09-12 01:46] LABS: Urine Appearance CLEAR; Urine Bilirubin NEGATIVE (NEG); Urine Blood NEGATIVE (NEG); Urine Color YELLOW; Urine Glucose NEGATIVE (NEG); Urine Protein NEGATIVE (NEG)
[2018-09-12 02:00] LABS: Urine Bacteria <20 /HPF (<20); Urine Culture Reflex Order REFLEXED; Urine RBC NONE SEEN /HPF (NONE SEEN)
[2018-09-12] MEDS: FENTANYL CITR 100 MCG/2 ML IV PRN (04:13)
[2018-09-12] MEDS ORDERED: DIPHENHYDRAMINE 25 MG TAB/CAP PO ONE (08:11)
[2018-09-12] MEDS: ENOXAPARIN 100 MG/ML SYR SQ SCH (08:36)
--- NOTE | 2018-09-12 11:44 | PN ---
Date of Progress Note: 09/11/2018 Subjective: Ms. Armas is a 73-year-old woman with fairly new onset atrial fibrillation, was seen by Dr. Cheng on 09/10/2018. She had come in with atrial fibrillation, also have a lumbar compression f racture. Echocardiogram that was done showed a normal ejection fraction, no thrombus. She was place d on IV amiodarone. She remains in atrial fibrillation with a rate of about 110 to 120, slightly hyp otensive, on Lovenox. We will maintain her on the same therapy. We should probably consider cardiov ersion in the near future, if she stays in atrial fibrillation. MAX/JONAS Voice ID: [id number] Report ID: [id number]
--- NOTE | 2018-09-12 12:07 | PN ---
Mrs. Armas remains in atrial fibrillation. She has been anticoagulated long enough that I think we c ould attempt a cardioversion now. She is fairly unstable hemodynamically. We will plan for tomorrow . Keep her on the amiodarone drip until then. ISHAN/JONAS Voice ID: [id number] Report ID: [id number]
[2018-09-12] MEDS ORDERED: FUROSEMIDE 40 MG TABLET PO ONE (19:00)
[2018-09-12] MEDS: TRAZODONE 50 MG TABLET PO PRN (22:23)
[2018-09-13] MEDS: HYDROCODONE/APAP 5/325 MG TAB PO PRN ×2 (06:46→17:55)
--- NOTE | 2018-09-13 08:22 | RAD REPORT ---
EXAM DESCRIPTION: RAD - Chest Single View - 09/12/2018 10:32 pm CLINICAL HISTORY: Device placement PICC line placement COMPARISON: September 10, 2018 FINDINGS: A PICC line has been inserted with its tip in the distal superior vena cava. Mild bilateral pulmonary opacities. Small pleural effusions. Heart is moderately enlarged. IMPRESSION: PICC line with its tip in the distal superior vena cava Mild to moderate CHF
[2018-09-13] MEDS ORDERED: MIDAZOLAM HCL 2 MG/2 ML INJ ONE ×3 (08:36→09:05)
[2018-09-13] MEDS ORDERED: NA CHLORIDE 0.9% 250 ML IV ONE (08:56)
[2018-09-13] MEDS ORDERED: NA CHLORIDE 0.9% 250 ML ONE (09:15)
[2018-09-13] MEDS: ENOXAPARIN 100 MG/ML SYR SQ SCH (09:53)
[2018-09-13] MEDS ORDERED: FUROSEMIDE 40 MG/4 ML VIAL IV ONE (17:05)
--- NOTE | 2018-09-13 19:18 | PN ---
Date of Progress Note: 09/13/2018 Subjective: The patient continues to be in atrial fibrillation with attempts defibrillating were uns uccessful. Cardiology discussed the case with electrophysiology in [place] and felt that it would be best to be transferred. She continues to be hypotensive, also has significant peripheral edema in a sheng and legs. At this time, her chest is cleared. Hip starting to show a little bit of erythema, bu t I do not feel at this stage necessary for intensive antibiotics in the event she is on the transfer list at [facility] and hopefully this will be accomplished later today. HR/MODL Voice ID: [id number] Report ID: [id number]
--- NOTE | 2018-09-13 19:18 | OP ---
Date of Procedure: 09/13/2018 Surgeon: Jimenez Sullivan MD Procedure: Inpatient direct current cardioversion on 09/13/2018. Indication: Recurrent atrial fibrillation. Procedure In Detail: The patient was in ICU bed 1 secondary to atrial fibrillation and hypotension, was placed on IV amiodarone for approximately 48 hours in addition to Lovenox. Echocardiography show ed normal ejection fraction without any thrombus. A cardioversion was attempted today. She was give n 5 mg of Versed for sedation. Received 2 different shocks with 100 and then 200 joules, and she skinny led to convert. Her heart rate was between 70 and 90 in atrial fibrillation after the procedure. Th e amiodarone was discontinued. She will be hydrated. Plan was discussed with the . We may g et her transferred to [place] for atrial fibrillation evaluation and treatment, so an ablation and a pacemaker may be in order. MAX/JONAS Voice ID: [id number] Report ID: [id number]
[2018-09-13] MEDS: AMIODARONE HCL 200 MG TAB PO SCH (21:16)
[2018-09-13] MEDS: TRAZODONE 50 MG TABLET PO PRN (21:16)
[2018-09-14] MEDS: HYDROCODONE/APAP 5/325 MG TAB PO PRN ×3 (04:59→18:22)
--- NOTE | 2018-09-14 05:32 | HP ---
Date of Admission: 09/10/2018 Chief Complaint: Palpitations, back pain, general malaise. History Of Present Illness: The patient present to the emergency room with the above outlined sympto ms. She states that she still notice some arrhythmias over the past week and she has been getting qu ite a bit weaker. She has a history of atrial fibrillation and has been treated for this extensively in the past. However, as of late, she feels it has been stable and she was seen in the office a cou ple of weeks ago and was stable cardiovascularly at that time. Associated with this has been some di zzy spells and in fact she has fallen a couple of times in the last fall. She said she landed on her buttocks and her lower back started to hurt since that time. She has had an increased pain signific antly in the lower back and into her buttocks. Past History: The patient had extensive hospitalizations for problems ranging from hip replacement w ith secondary MRSA, which necessitated numerous procedures since that time. Also has episodes of stephanie lulitis, admitted and treated both here and at [facility] in [place]. She has developed an allergy to vancomycin. She has extensive lymphedema, ulcerations, and cellulitis of her legs, which also neces sitated hospitalization and IV antibiotics. Has had a history of cardiac problems as well, as rubia koehler above with atrial fibrillation, much difficulty comparing to her a number of years ago, and then she apparently spontaneously converted and had been on blood thinners including Eliquis up until a co uple of months ago and apparently it was stopped and since that time, as mentioned above, she has bee n relatively asymptomatic until this last episode over the past week or so. Family History: Noncontributory. Social History: Nonsmoker and nondrinker. Physical Examination: General: The patient is an elderly female, hypotensive, in obvious discomfort, and irregular heartbe at. Head and Neck: Normocephalic. Pupils equal to light and accommodation. Fundi negative. Trachea mi dline. Thyroid not palpable. ENT negative. Chest: Clear to P and A. Cardiovascular: PMI midclavicular line. Heart: Sounds normal. Rhythm, very irregular. Abdomen: No organomegaly. Slightly distended. Bowel sounds normal. Extremities: Marked peripheral edema bilaterally. Lower extremities with chronic dermatological jennifer nges. Rectal/pelvic: Deferred. Impression: Acute onset atrial fibrillation; prior history of falls; possible syncope episodes; comp ression fracture; [id number] lymphedema; marked hip prosthesis, left and right. Plan: The patient will be admitted. Telemetry does show atrial fibrillation with varying rate respo nse. Cardiology would be consulted as to the present treatment and no indication of sepsis at this t pancho. Compression fracture will be treated symptomatically. HR/MODL Voice ID: [id number]
--- NOTE | 2018-09-14 07:19 | EKG ---
Test Date: 2018-09-13 Test Time: 13:59:43 Shelter Supervisor: ANDRESSA MEASUREMENT RESULTS: Intervals: Rate: 65 VT: QRSD: 84 QT: 388 QTc: 403 [place]: P: VT: QRS: 69 T: 138 INTERPRETIVE STATEMENTS: Atrial fibrillation with a competing junctional pacemaker Low voltage QRS Cannot rule out Anterior infarct, age undetermined Abnormal ECG Compared to ECG 09/11/2018 07:21:15 Myocardial infarct finding now present ST (T wave) deviation no longer present Electronically Signed On 09-14-18 07:16:04 CDT by Jimenez Sullivan
[2018-09-14] MEDS: ENOXAPARIN 100 MG/ML SYR SQ SCH (09:12)
[2018-09-14] MEDS: AMIODARONE HCL 200 MG TAB PO SCH ×2 (09:13→20:23)
--- NOTE | 2018-09-14 11:59 | P.PN ---
Subjective Date of Service: 09/14/18 Patient seen and examined at bedside with RN. Chart reviewed. Case discussed with cardiology. Patient converted back to sinus rhythm last night around 6:00 p.m.. Transferred to [facility] was canceled after speaking with EP physician over there. Patient currently complains of having generalized weakness and not able to get out of bed. Still complaining of having some shortness of breath this morning as well. Review of Systems 10-point ROS is otherwise unremarkable Physical Examination - Vital Signs Temperature: 97.8 F Blood Pressure: 84/42 Pulse: 60 Respirations: 16 Pulse Ox (%): 96 - Physical Exam General: Alert, Mild distress Neck: JVD distended Respiratory: Normal air movement, Crackles/rales, Expiratory wheezes, Inspiratory wheezes Cardiovascular: Regular rate/rhythm, Normal S1 S2 Gastrointestinal: Normal bowel sounds, No tenderness Musculoskeletal: No tenderness, Swelling (2+ bilateral edema) Integumentary: No rashes Neurological: Normal speech, Normal tone, Normal affect Lymphatics: No axilla or inguinal lymphadenopathy - Studies Medications List Reviewed: Yes Assessment And Plan - Current Problems (Diagnosis) (1) Atrial fibrillation with RVR Current Visit: Yes Status: Acute Plan: Patient with AFib with RVR up on admission. Heart rate was elevated in the ER more than 120 and irregular heart rhythm -cardiology was consulted. Appreciated recommendations at this time -cardioversion was attempted by cardiology however was not successful. -patient was continued on a amiodarone along with anti coagulation that she takes at home. -was awaiting a transfer to higher level of care for cardiac ablation however patient did convert back to sinus rhythm last night around 6:00 p.m.. A detailed discussion was done with EP physician and at this time it was felt that patient does not need to be transferred to higher level of care and can be monitored here for next 24 hr and then be discharged home to follow up with EP physician outpatient. -patient is to continue with her amiodarone anti coagulation (2) UTI (urinary tract infection) Current Visit: No Status: Acute Plan: UA concerning with UTI. -urine culture positive for Proteus -patient now on p.o. Augmentin Qualifiers: Urinary tract infection type: acute cystitis Hematuria presence: without hematuria Qualified Code(s): N30.00 - Acute cystitis without hematuria (3) Lymphedema Current Visit: No Status: Chronic Plan: Chronic lymphedema -elevate legs along with wrapping (4) COPD (chronic obstructive pulmonary disease) Current Visit: No Status: Chronic Plan: Duo nebs, oxygen, monitor closely for any acute worsening Qualifiers: COPD type: chronic bronchitis Chronic bronchitis type: simple Qualified Code(s): J41.0 - Simple chronic bronchitis (5) Chronic renal disease Current Visit: No Status: Chronic Plan: Currently stable. Will continue to monitor closely Qualifiers: Chronic kidney disease stage: stage 3 (moderate) (6) Depression Current Visit: No Status: Chronic Qualifiers: Depression Type: other depression Qualified Code(s): F32.89 - Other specified depressive episodes (7) GERD (gastroesophageal reflux disease) Current Visit: No Status: Chronic Qualifiers: Esophagitis presence: without esophagitis (8) HTN (hypertension) Onset Date: 04/13/17 Current Visit: No Status: Chronic Qualifiers: Hypertension type: essential hypertension Discharge Plan: Home Plan to discharge in: 48 Hours - Code Status/Comfort Care Code Status Assessed: Yes Critical Care: No
[2018-09-14] MEDS ORDERED: METOLAZONE 5 MG TABLET PO SCH (12:00)
--- NOTE | 2018-09-14 12:39 | PN ---
Date of Progress Note: 09/14/2018 Ms. Armas had been admitted for about 3 days right now with hypotension and atrial fibrillation, unre sponsive to IV amiodarone. Just yesterday, she received cardioversion 2 shocks with 100 and 200 joul es. She became bradycardic in the 50s after that, but remained in atrial fibrillation but later on i n the afternoon, she converted back to sinus rhythm and her blood pressure improved over to 120. She was transferred to telemetry. She remained in sinus rhythm. Remains edematous. She has chronic di astolic congestive heart failure. She has chronic venous insufficiency. She has diuresed well with IV Lasix. She tolerated that. We will continue IV Lasix diuresis, watch her creatinine, watch her p otassium, watch her weight and I's and O's and I will keep her in the hospital for another day or 2. Case was discussed with Dr. Randall. The patient was initially plan to transfer to [facility] for atrial fibrillation, but that was canceled. She is now on p.o. amiodarone 400 mg b.i.d. We w ill plan to have her see Dr. Evans as an outpatient for possible ablation and pacemaker down the corwin SANTANA/JONAS Voice ID: [id number] Report ID: [id number]
[2018-09-14] MEDS: PANTOPRAZOLE 40MG TABLET PO SCH (16:20)
[2018-09-14] MEDS: AMOX/K CLAV 500 MG TAB PO SCH (20:23)
[2018-09-15] MEDS: HYDROCODONE/APAP 5/325 MG TAB PO PRN ×5 (03:56→21:59)
[2018-09-15] MEDS: PANTOPRAZOLE 40MG TABLET PO SCH (05:15)
[2018-09-15] MEDS: AMOX/K CLAV 500 MG TAB PO SCH (08:34)
[2018-09-15] MEDS: CITALOPRAM 10 MG TABLET PO SCH (08:34)
[2018-09-15] MEDS: AMIODARONE HCL 200 MG TAB PO SCH ×2 (08:35→20:33)
[2018-09-15] MEDS: ENOXAPARIN 100 MG/ML SYR SQ SCH (08:37)
[2018-09-15] MEDS ORDERED: FUROSEMIDE 40 MG TABLET PO SCH (09:00)
--- NOTE | 2018-09-15 09:07 | EKG ---
Test Date: 2018-09-13 Test Time: 20:01:34 Magazine Repairer: RT-O MEASUREMENT RESULTS: Intervals: Rate: 61 FL: 296 QRSD: 74 QT: 404 QTc: 406 [place]: P: 17 FL: 296 QRS: 89 T: 165 INTERPRETIVE STATEMENTS: Sinus rhythm with 1st degree AV block with premature supraventricular complexes Low voltage QRS Cannot rule out Anterior infarct, age undetermined Abnormal ECG Compared to ECG 09/13/2018 13:59:43 Atrial premature complex(es) now present First degree AV block now present Atrial fibrillation no longer present Myocardial infarct finding still present Electronically Signed On 09-15-18 09:01:40 CDT by Jimenez Sullivan
[2018-09-15] MEDS: levoFLOXacin 500 MG TAB PO SCH (11:01)
--- NOTE | 2018-09-15 11:07 | P.PN ---
Subjective Date of Service: 09/15/18 Patient seen and examined at bedside with RN. Chart reviewed. Case discussed with cardiology. Patient converted back to sinus rhythm Transferred to [facility] was canceled after speaking with EP physician over there. Patient currently complains of having generalized weakness and not able to get out of bed. Still complaining of having some shortness of breath this morning as well. Review of Systems 10-point ROS is otherwise unremarkable Physical Examination - Vital Signs Temperature: 97.1 F Blood Pressure: 114/54 Pulse: 60 Respirations: 16 Pulse Ox (%): 96 - Physical Exam General: Alert, In no apparent distress HEENT: Atraumatic, PERRLA, EOMI Neck: Supple, JVD not distended Respiratory: Clear to auscultation bilaterally, Normal air movement Cardiovascular: Regular rate/rhythm, Normal S1 S2 Gastrointestinal: Normal bowel sounds, No tenderness Musculoskeletal: No tenderness Integumentary: No rashes Neurological: Normal speech, Normal tone, Normal affect Lymphatics: No axilla or inguinal lymphadenopathy - Studies Medications List Reviewed: Yes Assessment And Plan - Current Problems (Diagnosis) (1) Atrial fibrillation with RVR Current Visit: Yes Status: Acute Plan: Patient with AFib with RVR up on admission. Heart rate was elevated in the ER more than 120 and irregular heart rhythm -cardiology was consulted. Appreciated recommendations at this time -cardioversion was attempted by cardiology however was not successful. -patient was continued on a amiodarone along with anti coagulation that she takes at home. -was awaiting a transfer to higher level of care for cardiac ablation however patient did convert back to sinus rhythm. A detailed discussion was done with EP physician and at this time it was felt that patient does not need to be transferred to higher level of care and can be monitored here for next 24 hr and then be discharged home to follow up with EP physician outpatient. -patient is to continue with her amiodarone anti coagulation (2) UTI (urinary tract infection) Current Visit: No Status: Acute Plan: UA concerning with UTI. -urine culture positive for Proteus and entercocus -patient now on p.o. Levaquin Qualifiers: Urinary tract infection type: acute cystitis Hematuria presence: without hematuria Qualified Code(s): N30.00 - Acute cystitis without hematuria (3) Lymphedema Current Visit: No Status: Chronic Plan: Chronic lymphedema -elevate legs along with wrapping (4) COPD (chronic obstructive pulmonary disease) Current Visit: No Status: Chronic Plan: Duo nebs, oxygen, monitor closely for any acute worsening Qualifiers: COPD type: chronic bronchitis Chronic bronchitis type: simple Qualified Code(s): J41.0 - Simple chronic bronchitis (5) Chronic renal disease Current Visit: No Status: Chronic Plan: Currently stable. Will continue to monitor closely Qualifiers: Chronic kidney disease stage: stage 3 (moderate) (6) Depression Current Visit: No Status: Chronic Qualifiers: Depression Type: other depression Qualified Code(s): F32.89 - Other specified depressive episodes (7) GERD (gastroesophageal reflux disease) Current Visit: No Status: Chronic Qualifiers: Esophagitis presence: without esophagitis (8) HTN (hypertension) Onset Date: 04/13/17 Current Visit: No Status: Chronic Qualifiers: Hypertension type: essential hypertension Discharge Plan: Home Plan to discharge in: Greater than 2 days - Code Status/Comfort Care Code Status Assessed: Yes Critical Care: No
[2018-09-15 11:46] LABS: Bilirubin Total 1.1 mg/dL (0.2-1.0); Potassium 3.7 mmol/L (3.5-5.1); Protein, Total 6.4 g/dL (6.4-8.2)
[2018-09-15 11:53] LABS: Absolute Lymphocytes (CBC) 0.4 K/uL (0.7-4.9); Basophils % 0.5 % (0-1.3); Eosinophils % 5.4 % (0-4.4); Hematocrit 35.6 % (36.0-45.0); Lymphocytes % 5.2 % (15.3-44.8); MPV 7.7 fL (7.6-11.3); Monocytes % 12.5 % (3.3-12.3); RBC Red Blood Cell Count 3.64 M/uL (3.86-4.86)
--- NOTE | 2018-09-15 15:43 | PN ---
Date of Progress Note: 09/15/2018 History Of Present Illness: Ms. Armas had come in with hypotension and atrial fibrillation requiring cardioversion electrically. She was placed on amiodarone 400 mg 1 p.o. b.i.d. She remains in sinus rhythm. She remains normotensive. Her main problem right now is poor functional status, severe michael ous insufficiency and significant edema in the upper extremity and the lower extremity. I will incre ase the Lasix to 40 mg b.i.d. IV at least for today, get another BMP and magnesium in the morning. C onsult physical therapy. The patient states she has a venous insufficiency that has been chronic and has an appointment with a pain clinic in [place] on the 26 of September. We will continue to follow shmuel LEAL Voice ID: [id number] Report ID: [id number]
[2018-09-15] MEDS: FUROSEMIDE 20 MG/ 2ML VIAL IV SCH (17:37)
[2018-09-15] MEDS: TRAZODONE 50 MG TABLET PO PRN (20:33)
[2018-09-16] MEDS: HYDROCODONE/APAP 5/325 MG TAB PO PRN ×5 (03:44→20:35)
[2018-09-16 05:53] LABS: Absolute Lymphocytes (CBC) 0.4 K/uL (0.7-4.9); Basophils % 0.7 % (0-1.3); Eosinophils % 5.7 % (0-4.4); Hematocrit 34.4 % (36.0-45.0); Lymphocytes % 5.6 % (15.3-44.8); MPV 7.7 fL (7.6-11.3); Monocytes % 13.3 % (3.3-12.3); RBC Red Blood Cell Count 3.51 M/uL (3.86-4.86)
[2018-09-16] MEDS: PANTOPRAZOLE 40MG TABLET PO SCH (05:55)
[2018-09-16 06:17] LABS: Albumin 1.9 g/dL (3.4-5.0); Potassium 4.2 mmol/L (3.5-5.1); Protein, Total 6.2 g/dL (6.4-8.2)
[2018-09-16] MEDS: FUROSEMIDE 20 MG/ 2ML VIAL IV SCH ×2 (08:08→16:37)
[2018-09-16] MEDS: ENOXAPARIN 100 MG/ML SYR SQ SCH (08:08)
[2018-09-16] MEDS: CITALOPRAM 10 MG TABLET PO SCH (08:09)
[2018-09-16] MEDS: AMIODARONE HCL 200 MG TAB PO SCH ×2 (08:09→20:34)
[2018-09-16] MEDS: levoFLOXacin 500 MG TAB PO SCH (08:09)
--- NOTE | 2018-09-16 11:29 | P.PN ---
Subjective Date of Service: 09/16/18 Patient seen and examined at bedside with RN. Chart reviewed. Case discussed with cardiology. Patient converted back to sinus rhythm Transferred to [facility] was canceled after speaking with EP physician over there. Patient currently complains of having generalized weakness and not able to get out of bed. Still complaining of having some shortness of breath this morning as well. ASD was not able to work with physical therapy as much as she wanted. Only got up to the edge of the bed. Review of Systems 10-point ROS is otherwise unremarkable Physical Examination - Vital Signs Temperature: 97.7 F Blood Pressure: 103/50 Pulse: 59 Respirations: 18 Pulse Ox (%): 95 - Physical Exam General: Alert, In no apparent distress HEENT: Atraumatic, PERRLA, EOMI Neck: Supple, JVD not distended Respiratory: Clear to auscultation bilaterally, Normal air movement Cardiovascular: Regular rate/rhythm, Normal S1 S2 Gastrointestinal: Normal bowel sounds, No tenderness Musculoskeletal: No tenderness Integumentary: No rashes Neurological: Normal speech, Normal tone, Normal affect Lymphatics: No axilla or inguinal lymphadenopathy - Studies Microbiology Data (last 24 hrs): 09/10/18 12:15 Blood - Blood Aerobic Blood Culture - Final No growth in 5 days. 09/10/18 12:15 Blood - Blood Anaerobic Blood Culture - Final No growth in 5 days. 09/10/18 12:30 Blood - Blood Aerobic Blood Culture - Final No growth in 5 days. 09/10/18 12:30 Blood - Blood Anaerobic Blood Culture - Final No growth in 5 days. Medications List Reviewed: Yes Assessment And Plan - Current Problems (Diagnosis) (1) Atrial fibrillation with RVR Current Visit: Yes Status: Acute Plan: Patient with AFib with RVR up on admission. Heart rate was elevated in the ER more than 120 and irregular heart rhythm -cardiology was consulted. Appreciated recommendations at this time -cardioversion was attempted by cardiology however was not successful. Converted spontaneously later that evening -patient was continued on a amiodarone along with anti coagulation that she takes at home. -was awaiting a transfer to higher level of care for cardiac ablation however patient did convert back to sinus rhythm. A detailed discussion was done with EP physician and at this time it was felt that patient does not need to be transferred to higher level of care and can be monitored here for next 24 hr and then be discharged home to follow up with EP physician outpatient. -patient is to continue with her amiodarone and anti coagulation (2) UTI (urinary tract infection) Current Visit: No Status: Acute Plan: UA concerning with UTI. -urine culture positive for Proteus and entercocus -patient now on p.o. Levaquin Qualifiers: Urinary tract infection type: acute cystitis Hematuria presence: without hematuria Qualified Code(s): N30.00 - Acute cystitis without hematuria (3) Lymphedema Current Visit: No Status: Chronic Plan: Chronic lymphedema -elevate legs along with wrapping (4) COPD (chronic obstructive pulmonary disease) Current Visit: No Status: Chronic Plan: Duo nebs, oxygen, monitor closely for any acute worsening Qualifiers: COPD type: chronic bronchitis Chronic bronchitis type: simple Qualified Code(s): J41.0 - Simple chronic bronchitis (5) Chronic renal disease Current Visit: No Status: Chronic Plan: Currently stable. Will continue to monitor closely Qualifiers: Chronic kidney disease stage: stage 3 (moderate) (6) Depression Current Visit: No Status: Chronic Qualifiers: Depression Type: other depression Qualified Code(s): F32.89 - Other specified depressive episodes (7) GERD (gastroesophageal reflux disease) Current Visit: No Status: Chronic Qualifiers: Esophagitis presence: without esophagitis (8) HTN (hypertension) Onset Date: 04/13/17 Current Visit: No Status: Chronic Qualifiers: Hypertension type: essential hypertension - Plan Pending clinical improvement at this time. Patient worked with physical therapy today. Unable to get out of bed. Patient lives at home with her was not able to provide complete care for her. Patient will benefit from working with physical therapy here in the hospital versus group home facility. Will notify case management tomorrow. Will transfer care back to the primary care provider tomorrow as well. Discharge Plan: Other Plan to discharge in: 48 Hours - Code Status/Comfort Care Code Status Assessed: Yes Critical Care: No
--- NOTE | 2018-09-16 14:35 | PN ---
Date of Progress Note: 09/16/2018 Ms. Armas was admitted with hypotension, atrial fibrillation, acute exacerbation of chronic diastolic congestive heart failure. She remains on normal rhythm on amiodarone 400 b.i.d., has really no card iac complaint per se. Yesterday, she was given IV Lasix 40 mg b.i.d., and continues to diurese well. She still has chronic venous insufficiency type of edema in the lower extremity bilaterally. Her m ain complaint now is fatigue and unable to move around. I think physical therapy is in order and may be consideration for rehab as well. From , this coming week, which will be the 13th of this month, she needs to be switched to amiodarone 200 mg daily. MAX/JONAS Voice ID: [id number] Report ID: [id number]
[2018-09-16] MEDS: FE SULF/FA/VIT B COMP & C TAB PO SCH (15:49)
--- NOTE | 2018-09-16 19:40 | RAD REPORT ---
EXAM DESCRIPTION: US - UPPER EXTREMITY VENOUS UNILATE - 09/16/2018 7:24 pm CLINICAL HISTORY: Right upper extremity pain and swelling COMPARISON: None. TECHNIQUE: Real-time sonographic evaluation of the right upper extremity deep venous system was perf ormed. FINDINGS: Normal compressibility, flow augmentation, phasic flow and spontaneous flow is identified in the right upper extremity deep venous system. No intraluminal filling defects seen. Jugular and IV C clear. No thrombus seen along the course of the catheter. There is edema in the soft tissues near t he nehal. IMPRESSION: No DVT in the right upper extremity.
[2018-09-16] MEDS ORDERED: DIPHENHYDRAMINE 25 MG TAB/CAP PO ONE (21:41)
[2018-09-17] MEDS: HYDROCODONE/APAP 5/325 MG TAB PO PRN ×5 (01:53→20:57)
[2018-09-17 05:54] LABS: Absolute Lymphocytes (CBC) 0.5 K/uL (0.7-4.9); Basophils % 0.5 % (0-1.3); Eosinophils % 5.9 % (0-4.4); Hematocrit 32.3 % (36.0-45.0); MPV 8.1 fL (7.6-11.3); Monocytes % 13.5 % (3.3-12.3); RBC Red Blood Cell Count 3.31 M/uL (3.86-4.86)
[2018-09-17] MEDS: PANTOPRAZOLE 40MG TABLET PO SCH (06:02)
[2018-09-17 06:15] LABS: Albumin 1.9 g/dL (3.4-5.0); Bilirubin Total 0.9 mg/dL (0.2-1.0); Potassium 3.7 mmol/L (3.5-5.1)
[2018-09-17] MEDS: ENOXAPARIN 100 MG/ML SYR SQ SCH (08:42)
[2018-09-17] MEDS: AMIODARONE HCL 200 MG TAB PO SCH ×2 (08:42→20:58)
[2018-09-17] MEDS: levoFLOXacin 500 MG TAB PO SCH (08:42)
[2018-09-17] MEDS: FUROSEMIDE 20 MG/ 2ML VIAL IV SCH ×2 (08:43→17:19)
[2018-09-17] MEDS: CITALOPRAM 10 MG TABLET PO SCH (08:43)
[2018-09-17] MEDS: FE SULF/FA/VIT B COMP & C TAB PO SCH ×2 (08:45→08:46)
--- NOTE | 2018-09-17 09:54 | EKG ---
Test Date: 2018-09-17 Test Time: 00:24:26 Music Sound Light Technician: RT MEASUREMENT RESULTS: Intervals: Rate: 90 [place]: QRSD: 74 QT: 326 QTc: 398 [place]: P: [place]: QRS: 52 T: 211 INTERPRETIVE STATEMENTS: Atrial fibrillation Low voltage QRS Cannot rule out Anterior infarct, age undetermined Abnormal ECG Compared to ECG 09/13/2018 20:01:34 Sinus rhythm no longer present Atrial premature complex(es) no longer present First degree AV block no longer present Myocardial infarct finding still present Electronically Signed On 09-17-18 09:53:57 CDT by Van Cheng
[2018-09-17] MEDS: TRAZODONE 50 MG TABLET PO PRN (20:58)
[2018-09-18] MEDS: HYDROCODONE/APAP 5/325 MG TAB PO PRN ×5 (04:20→22:07)
[2018-09-18 04:56] LABS: Absolute Lymphocytes (CBC) 0.4 K/uL (0.7-4.9); Basophils % 0.2 % (0-1.3); Eosinophils % 6.3 % (0-4.4); Hematocrit 33.3 % (36.0-45.0); Lymphocytes % 7.1 % (15.3-44.8); Monocytes % 10.5 % (3.3-12.3); RBC Red Blood Cell Count 3.42 M/uL (3.86-4.86)
[2018-09-18 05:13] LABS: Albumin 1.9 g/dL (3.4-5.0); Bilirubin Total 1.1 mg/dL (0.2-1.0); Potassium 3.1 mmol/L (3.5-5.1); Protein, Total 5.9 g/dL (6.4-8.2)
[2018-09-18] MEDS: PANTOPRAZOLE 40MG TABLET PO SCH (05:46)
[2018-09-18] MEDS: FE SULF/FA/VIT B COMP & C TAB PO SCH (09:37)
[2018-09-18] MEDS: CITALOPRAM 10 MG TABLET PO SCH (09:37)
[2018-09-18] MEDS: FUROSEMIDE 20 MG/ 2ML VIAL IV SCH ×2 (09:38→16:53)
[2018-09-18] MEDS: levoFLOXacin 500 MG TAB PO SCH (09:38)
[2018-09-18] MEDS: ENOXAPARIN 100 MG/ML SYR SQ SCH (09:38)
[2018-09-18] MEDS: AMIODARONE HCL 200 MG TAB PO SCH ×2 (09:38→20:32)
[2018-09-18] MEDS ORDERED: POTASSIUM CL SA 10 MEQ TAB PO ONE ×2 (10:49→21:00)
[2018-09-18] MEDS: ONDANSETRON 4 MG/2 ML VIAL IV PRN ×3 (11:43→20:51)
[2018-09-18] MEDS: TRAZODONE 50 MG TABLET PO PRN (20:32)
--- NOTE | 2018-09-18 22:50 | PN ---
Date of Progress Note: 09/17/2018 Subjective: Mrs. Armas had been admitted with hypotension, atrial fibrillation, diastolic congestive heart failure, significant bilateral lower extremity edema secondary to venous insufficiency, upper extremity edema. She has been treated with Lasix, Zaroxolyn p.r.n. Was shocked for atrial fibrillat ion and converted. Was placed on amiodarone 400 b.i.d. She remains in atrial fibrillation now with a heart rate in the 70s, rate controlled, normotensive. I think she requires some significant physic al therapy and rehab before she goes home. As long as she is normotensive, I think leaving her on El iquis and amiodarone is a way to go with her heart rhythm. If she becomes symptomatic again, we will consider her for ablation and I will make an appointment for her to see electrophysiology services katy SANTANA/JONAS Voice ID: [id number] Report ID: [id number]
[2018-09-19 05:18] LABS: Potassium 3.8 mmol/L (3.5-5.1)
[2018-09-19] MEDS ORDERED: POTASSIUM CL SA 10 MEQ TAB PO ONE (05:21)
[2018-09-19] MEDS: PANTOPRAZOLE 40MG TABLET PO SCH (05:33)
[2018-09-19] MEDS: ONDANSETRON 4 MG/2 ML VIAL IV PRN ×2 (05:36→09:10)
[2018-09-19] MEDS: CITALOPRAM 10 MG TABLET PO SCH (08:48)
[2018-09-19] MEDS: FE SULF/FA/VIT B COMP & C TAB PO SCH (08:48)
[2018-09-19] MEDS: FUROSEMIDE 20 MG/ 2ML VIAL IV SCH (08:49)
[2018-09-19] MEDS: levoFLOXacin 500 MG TAB PO SCH (08:49)
[2018-09-19] MEDS: HYDROCODONE/APAP 5/325 MG TAB PO PRN ×4 (08:49→21:51)
[2018-09-19] MEDS: AMIODARONE HCL 200 MG TAB PO SCH ×2 (08:49→21:51)
[2018-09-19] MEDS: ENOXAPARIN 100 MG/ML SYR SQ SCH (08:54)
--- NOTE | 2018-09-19 13:18 | PN ---
Date of Progress Note: 09/17/2018 Patient continues to be in atrial fibrillation with controlled rate. She has much difficulty with mo bilization. Physical therapy has been consulted. The possibility of transferring her to rehab has b een considered as well as. HR/MODL Voice ID: [id number] Report ID: [id number]
--- NOTE | 2018-09-19 13:32 | PN ---
Date of Progress Note: 09/18/2018 Patient continues to be in atrial fibrillation. However, for a short period of time, she did convert , still has much difficulty mobilizing and I think this is a combination of generalized weakness and progression perhaps of her muscular atrophy due to the inactivity. A rehab consult has been requeste d to continue on the above-outlined regimen. If in fact her cardiological status is stable, she coul d either be transferred or either disposition made. HR/MODL Voice ID: [id number] Report ID: [id number]
--- NOTE | 2018-09-19 15:48 | PN ---
Date of Progress Note: 09/17/2018 Subjective: Patient continues to be in atrial fibrillation with controlled rate. She has much diffi culty with mobilization. Physical therapy has been consulted. The possibility of transferring her t o rehab has been considered as well. HR/MODL Voice ID: [id number] Report ID: [id number]
[2018-09-19] MEDS: DOXYCYCLINE 100 MG CAP PO SCH (21:51)
[2018-09-19] MEDS: TRAZODONE 50 MG TABLET PO PRN (22:46)
[2018-09-20] MEDS: HYDROCODONE/APAP 5/325 MG TAB PO PRN ×2 (02:31→06:38)
[2018-09-20] MEDS: PANTOPRAZOLE 40MG TABLET PO SCH (06:10)
[2018-09-20 06:20] LABS: Potassium 3.9 mmol/L (3.5-5.1)
[2018-09-20] MEDS ORDERED: POTASSIUM CL SA 10 MEQ TAB PO ONE (09:00)
[2018-09-20] MEDS: ONDANSETRON 4 MG (ODT) TAB PO PRN (09:06)
[2018-09-20] MEDS: DOXYCYCLINE 100 MG CAP PO SCH ×2 (10:02→20:15)
[2018-09-20] MEDS: CITALOPRAM 10 MG TABLET PO SCH (10:02)
[2018-09-20] MEDS: FUROSEMIDE 40 MG TABLET PO SCH (10:03)
[2018-09-20] MEDS: AMIODARONE HCL 200 MG TAB PO SCH ×2 (10:03→20:15)
[2018-09-20] MEDS: ENOXAPARIN 100 MG/ML SYR SQ SCH (10:03)
[2018-09-20] MEDS: FE SULF/FA/VIT B COMP & C TAB PO SCH (11:53)
[2018-09-20] MEDS: HYDROCODONE/APAP 7.5/325 MG TAB PO PRN ×3 (11:53→21:54)
--- NOTE | 2018-09-20 13:40 | PN ---
Date of Progress Note: 09/18/2018 Subjective: Patient continues to be in atrial fibrillation. However, for a short period of time, sh fozia did convert, still has much difficulty mobilizing and I think this is a combination of generalized weakness and progression perhaps of her muscular atrophy due to the inactivity. A rehab consult has been requested to continue on the above-outlined regimen. If in fact her cardiological status is sta ble, she could either be transferred or either disposition made. HR/MODL Voice ID: [id number] Report ID: [id number]
[2018-09-20] MEDS ORDERED: FUROSEMIDE 20 MG TABLET PO SCH (17:00)
--- NOTE | 2018-09-20 17:03 | PN ---
Date of Progress Note: 09/19/2018 Subjective: The patient is actually feeling somewhat better today, sitting in the chair. She has be en stable as far as her cardiac arrhythmia with tachycardia around 100, but no evidence of atrial fib rillation. Analgesics will be decreased and her catheter will be discontinued. Discussion of kaden ent was made with her and her son as far as a SNF as she was turned down from rehab. She could not t olerate 3 hours of rehab at this time. Possibility of home was also considered. HR/MODL Voice ID: [id number] Report ID: [id number]
[2018-09-20 21:45] VITALS: O2SAT 93
[2018-09-20] MEDS: TRAZODONE 50 MG TABLET PO PRN (21:54)
--- NOTE | 2018-09-20 23:23 | PN ---
Date of Progress Note: 09/20/2018 Subjective: The patient has voided since removal of the catheter. She is comfortable, but toleratin g this situation since the hydrocodone has been decreased in the dosage. We will attempt to remove t he oxygen. She has been accepted as a SNF and this will be discussed with her family in the morning. As far as her placement is concerned, she no longer fibrillating; therefore, I have the options of either a SNF or at home. HR/MODL Voice ID: [id number] Report ID: [id number]
[2018-09-21] MEDS: HYDROCODONE/APAP 7.5/325 MG TAB PO PRN ×3 (02:19→12:03)
[2018-09-21 04:46] LABS: Potassium 4.2 mmol/L (3.5-5.1)
[2018-09-21] MEDS: PANTOPRAZOLE 40MG TABLET PO SCH (05:40)
[2018-09-21 06:05] VITALS: BMI 30.9
[2018-09-21] MEDS: ONDANSETRON 4 MG (ODT) TAB PO PRN (09:39)
[2018-09-21] MEDS: AMIODARONE HCL 200 MG TAB PO SCH (10:20)
[2018-09-21] MEDS: DOXYCYCLINE 100 MG CAP PO SCH (10:21)
[2018-09-21] MEDS: FUROSEMIDE 40 MG TABLET PO SCH (10:21)
[2018-09-21] MEDS: CITALOPRAM 10 MG TABLET PO SCH (10:21)
[2018-09-21] MEDS: ENOXAPARIN 100 MG/ML SYR SQ SCH (10:22)
[2018-09-21] MEDS: FE SULF/FA/VIT B COMP & C TAB PO SCH (12:04)
[2018-09-21 13:03] VITALS: BP 109/76; TEMP 97
--- NOTE | 2018-09-22 16:50 | PN ---
Date of Progress Note: 09/21/2018 Subjective: The patient continues to improve. Her atrial fibrillation, has had occasional episode a t times, but no prolongation, minimal tachycardia. Her physical therapy has improved somewhat. She is voiding and feels she is ready to go to a SNF to increase her strength, coordination, and continui ng to monitor cardiac status. Arrangements were then made to transfer to a SNF in [facility]. Thi s will be done later today. HR/MODL Voice ID: [id number] Report ID: [id number]
== END 2018-09-21 15:24 | DRG 309 ==
LOC: ER 11:39 → ERHOLD 16:37 → 3RD-ICU 19:30 → 4TH 09-14 04:52
PROVIDERS: ADMIT Family Medicine; ATTEND Family Medicine
PROC: 02HV33Z Insertion of Infusion Device into Superior Vena Cava, Percutaneous Approach (ICD-10-PCS; 2018-09-10)
PROC: 5A2204Z Restoration of Cardiac Rhythm, Single (ICD-10-PCS; principal; 2018-09-13)
DX: I48.91 Unspecified atrial fibrillation (principal); E44.0 Moderate protein-calorie malnutrition; N30.00 Acute cystitis without hematuria; I13.0 Hypertensive heart and chronic kidney disease with heart failure and stage 1 through stage 4 chronic kidney disease, or unspecified chronic kidney disease; I50.32 Chronic diastolic (congestive) heart failure; B96.4 Proteus (mirabilis) (morganii) as the cause of diseases classified elsewhere; B95.2 Enterococcus as the cause of diseases classified elsewhere; I73.9 Peripheral vascular disease, unspecified; I89.0 Lymphedema, not elsewhere classified; J44.9 Chronic obstructive pulmonary disease, unspecified; N18.3 Chronic kidney disease, stage 3 (moderate); I95.9 Hypotension, unspecified; F32.9 Major depressive disorder, single episode, unspecified; K21.9 Gastro-esophageal reflux disease without esophagitis; Z68.30 Body mass index [BMI] 30.0-30.9, adult
CPT/HCPCS: 36415; 70450; 71045; 72125; 74176; 76377; 76700; 80048; 80053; 80076; 81001; 82550; 83605; 83690; 84132; 84145; 84484; 85025; 85610; 87040; 87077; 87086; 87088; 87186; 93005; 93306; 93971; 96361; 96365; 96366; 96372; 96375; 97110; 97112; 97116; 97162; 97530; 99285; J0282; J1160; J1650; J1940; J2250; J2405; J3010; J7030; J7060

== ENCOUNTER 2018-11-09 17:49 | Emergency (ER) | payer OTHER ==
--- OUTSIDE RECORDS SUMMARY | 2018-11-09 17:51 | XMS REPORT | Clinical Summary ---
:1945 Author Organization [facility] Address [address] [place] [address] Care Team Providers Name Role Phone Jaylon [...] pelvic region and thigh 12/23/2015 Infection 12/23/2015 Encounters Date Type Specialty Care Team Description 09/13/2018 Hospital Encounter Ash Landin MD 09/13/2018 Intake Access N/A after 11/08/2017 Immunizations Name Dates Previously Given Next Due [...] Last Done Comments BREAST CANCER SCREENING 08/09/1995 COLONOSCOPY SCREENING 08/09/1995 SHINGLES VACCINES (#1) 08/09/1995 65+ PNEUMOCOCCAL VACCINE (1 of 2 - PCV13) 2010 INFLUENZA VACCINE 11/08/2018 01/14/2016 Implants Implanted Type Area Banana Expert Device Shelf Model / Identifier Expiration Serial / Lot Date Body Prox Cone Hiofst Sz A 50mm Macarena - [id number] Hip Joint Left: [employer] 06/02/2026 [id number] / Implanted: 06/15/2016 (Quantity not on file) Implants Hip / [id number] Head Fml Sld Modlr Co-Cr 40x-6mm W4y-Rahobv - [id number] Hip Joint Left: [employer] 03/01/2026 [id number] / Implanted: 06/15/2016 (Quantity not on file) Implants Hip / [id number] G7 Neutral E1 Liner 40mm I - [id number] IPM IMPLANT Left: [employer] [id number] / Implanted: 06/15/2016 (Quantity not on file) DEVICES Hip / [id number] Screw G7 6.5x25 - [id number] IPM IMPLANT Left: [employer] 05/24/2026 [id number] / Implanted: 06/15/2016 (Quantity not on file) DEVICES Hip / [id number] Screw G7 6.5x25 - [id number] IPM IMPLANT Left: [employer] 05/24/2026 [id number] / Implanted: 06/15/2016 (Quantity not on file) DEVICES Hip / [id number] Screw G7 6.5x20 - [id number] IPM IMPLANT Left: [employer] 02/23/2026 [id number] / Implanted: 06/15/2016 (Quantity not on file) DEVICES Hip / [id number] Screw G7 6.5x20 - [id number] IPM IMPLANT Left: [employer] 04/25/2026 [id number] / Implanted: 06/15/2016 (Quantity not on file) DEVICES Hip / [id number] Screw G7 6.5x60 - [id number] IPM IMPLANT Left: [employer] 09/23/2025 [id number] / Implanted: Qty: 1 on 06/15/2016 by Quique Fowler MD DEVICES Hip / Screw G7 6.5x35 - [id number] IPM IMPLANT Left: [employer] 06/02/2025 [id number] / Implanted: 06/15/2016 (Quantity not on file) DEVICES Hip / [id number] Screw G7 6.5x20 - [id number] IPM IMPLANT Left: [employer] 03/13/2026 [id number] / Implanted: 06/15/2016 (Quantity not on file) DEVICES Hip / [id number] G7 [place] Multihole 66mm I - [id number] IPM IMPLANT Left: [employer] [id number] / Implanted: 06/15/2016 (Quantity not on file) DEVICES Hip / [id number] Macarena [id number] Intlkng Dist - [id number] IPM IMPLANT Left: [employer] [id number] / Implanted: 06/15/2016 (Quantity not on file) DEVICES Hip / [id number] Screw Trans Kressman 5.0x40mm - [id number] IPM IMPLANT Left: [employer] [id number] / Implanted: 06/15/2016 (Quantity not on file) DEVICES Hip / 5.0tdr31fd Ti Kaessmann Screw - [id number] IPM IMPLANT Left: [employer] [id number] / Implanted: 06/15/2016 (Quantity not on file) DEVICES Hip / 5.1glj57pe Ti Kaessmann Screw - [id number] IPM IMPLANT Left: [employer] [id number] / Implanted: 06/15/2016 (Quantity not on file) DEVICES Hip / Cement Bone Full Dose Simplex P Radiopaque - [id number] Surgical Left: LINDA 06/07/2018 [id number] 1 010 / Implanted: Qty: 1 on 12/23/2015 by Quique Fowler MD Bone Cement Hip ORTHOPEDICS / HIPS-KNEES [id number] Cement Bone Full-Dose Premxd W/ Tobr Simplex P Pack 10/Ea - [id number] Surgical Left: LINDA 04/09/2017 [id number] 9 [id number] / Implanted: Qty: 1 on 12/23/2015 by Quique Fowler MD Bone Cement Hip ORTHOPEDICS / HIPS-KNEES [id number] Cement Bone Full-Dose Premxd W/ Tobr Simplex P Pack 10/Ea - [id number] Surgical Left: LINDA 02/07/2017 [id number] 9 010 / Implanted: Qty: 1 on 12/23/2015 by Quique Fowler MD Bone Cement Hip ORTHOPEDICS / HIPS-KNEES [id number] Cement Bone Full-Dose Premxd W/ Tobr Simplex P Pack 10/Ea - [id number] Surgical Left: LINDA 04/09/2017 [id number] 9 010 / Implanted: Qty: 1 on 12/23/2015 by Quique Fowler MD Bone Cement Hip ORTHOPEDICS / HIPS-KNEES [id number] Cement Bone Full-Dose Premxd W/ Tobr Simplex P Pack 10/Ea - [id number] Surgical Left: LINDA 05/10/2017 [id number] 9 010 / Implanted: Qty: 1 on 02/17/2016 by Quique Fowler MD Bone Cement Hip ORTHOPEDICS / HIPS-KNEES [id number] Cement Bone Full-Dose Premxd W/ Tobr Simplex P Pack 10/Ea - [id number] Surgical Left: LINDA 04/09/2017 [id number] 9 010 / Implanted: Qty: 1 on 02/17/2016 by Quique Fowler MD Bone Cement Hip ORTHOPEDICS / HIPS-KNEES [id number] Cement Bone Full-Dose Premxd W/ Tobr Simplex P Pack 10/Ea - [id number] Surgical Left: LINDA 07/08/2017 [id number] 9 010 / Implanted: Qty: 1 on 02/17/2016 by Quique Fowler MD Bone Cement Hip ORTHOPEDICS / HIPS-KNEES [id number] Cement Bone Full Dose Simplex P Radiopaque - [id number] Surgical Left: LINDA 09/07/2018 6191 1 010 / Implanted: Qty: 1 on 02/17/2016 by Quique Fowler MD Bone Cement Hip ORTHOPEDICS / HIPS-KNEES [id number] Cement Bone Full Dose Simplex P Radiopaque - [id number] Surgical Left: LINDA 06/07/2018 6191 1 010 / Implanted: Qty: 1 on 04/13/2016 by Quique Fowler MD Bone Cement Hip ORTHOPEDICS / HIPS-KNEES [id number] Cement Bone Full-Dose Premxd W/ Tobr Simplex P Pack 10/Ea - [id number] Surgical Left: LINDA 08/07/2017 [id number] 9 010 / Implanted: Qty: 1 on 04/13/2016 by Quique Fowler MD Bone Cement Hip ORTHOPEDICS / HIPS-KNEES [id number] Cement Bone Full-Dose Premxd W/ Tobr Simplex P Pack 10/Ea - [id number] Surgical Left: LINDA 08/07/2017 [id number] 9 010 / Implanted: Qty: 1 on 04/13/2016 by Quique Fowler MD Bone Cement Hip ORTHOPEDICS / HIPS-KNEES [id number] Cement Bone Full-Dose Premxd W/ Tobr Simplex P Pack 10/Ea - [id number] Surgical Left: LINDA 08/07/2017 6197 9 010 / Implanted: Qty: 1 on 04/13/2016 by Quique Fowler MD Bone Cement Hip ORTHOPEDICS / HIPS-KNEES [id number] Cement Bone Full-Dose Premxd W/ Tobr Simplex P Pack 10/Ea - [id number] Surgical Left: LINDA 08/07/2017 6197 9 010 / Implanted: Qty: 2 on 04/20/2016 by Quique Fowler MD Bone Cement Hip ORTHOPEDICS / HIPS-KNEES [id number] Cement Bone Full-Dose Premxd W/ Tobr Simplex P Pack 10/Ea - [id number] Surgical Left: LINDA 08/07/2017 6197 9 010 / Implanted: Qty: 1 on 04/20/2016 by Quique Fowler MD Bone Cement Hip ORTHOPEDICS / HIPS-KNEES [id number] Cement Bone Prep Univl Insrtr Sculp Fml [place] Suct Sm - [id number] Surgical Left: LINDA 10/08/2020 [id number] / Implanted: Qty: 1 on 12/23/2015 by Quique Fowler MD Implants; Hip INSTRUMENTS / Expanders; [id number] Extenders; Surgical Wires Cement Bone Prep Univl Insrtr Sculp Fml [place] Suct Sm - [id number] Surgical Left: LINDA 12/09/2020 [id number] / Implanted: Qty: 1 on 02/17/2016 by Quique Fowler MD Implants; Hip INSTRUMENTS / Expanders; [id number] Extenders; Surgical Wires Cement Bone Prep Univl Insrtr Sculp Fml [place] Suct Sm - [id number] Surgical N/A: LINDA 01/08/2021 [id number] / Implanted: Qty: 1 on 04/20/2016 by Quique Fowler MD Implants; N/A INSTRUMENTS / Expanders; [id number] Extenders; Surgical Wires Procedures Procedure Name Priority [...] Routine 12/13/2017 5:26 PM CDT CELLS after 11/08/2017 Results Transfuse RBC (12/13/2017 5:28 PM CDT)Only the most recent of7 resultswithin the time period is included.after 11/08/2017 Insurance Payer Benefit Plan / Subscriber ID Effective Dates Phone Address Type Group [employer] xxxxxxxxxxx 2014-Presen HMO HMO MCR ADV t Advance Directives Patient has advance care planning documents, and code status on file. For more information, please contact:[place] [address] Code Status Date Activated Date Inactivated Comments [...]
[2018-11-09 18:37] LABS: Absolute Lymphocytes (CBC) 0.3 K/uL (0.7-4.9); Basophils % 0.5 % (0-1.3); Hematocrit 26.9 % (36.0-45.0); Lymphocytes % 4.1 % (15.3-44.8); MPV 6.6 fL (7.6-11.3); RBC Red Blood Cell Count 2.72 M/uL (3.86-4.86)
[2018-11-09 18:38] LABS: Protime INR 3.77
[2018-11-09 18:53] LABS: ALT/SGPT 14 U/L (12-78); AST/SGOT 25 U/L (15-37); Albumin 2.5 g/dL (3.4-5.0); Alkaline Phosphatase 189 U/L (45-117); BUN Blood Urea Nitrogen 22 mg/dL (7-18); Bicarbonate 36 mmol/L (21-32); Bilirubin Direct 0.6 mg/dL (0-0.2); Glucose Level 109 mg/dL (74-106); Magnesium 2.1 mg/dL (1.8-2.4); NT PRO-BNP 2129 pg/mL (<125); Potassium 3.6 mmol/L (3.5-5.1); Protein, Total 6.8 g/dL (6.4-8.2); Sodium Level 142 mmol/L (136-145); Troponin (Emerg Dept Use Only) < 0.02 ng/mL (0.0-0.045)
--- NOTE | 2018-11-09 19:40 | RAD REPORT ---
EXAM DESCRIPTION: RAD - Chest Single View - 11/09/2018 6:44 pm CLINICAL HISTORY: Chest pain, hypertension, shortness of breath COMPARISON: September 2018 TECHNIQUE: AP portable chest image was obtained 1841 hours . FINDINGS: Lung volumes are reduced. PICC line has been removed since the prior study. Bilateral pleu ral effusions are present with cardiomegaly, vascular engorgement and prominent central lung markings . Findings are worse than prior imaging. Trachea is midline. No pneumothorax. No acute bony abnormali ty seen. No acute aortic findings suspected. IMPRESSION: Moderate severity CHF/volume overload pattern.
[2018-11-09] MEDS ORDERED: VITAMIN K (ADULT) 10 MG/ML ONE (20:04)
[2018-11-09] MEDS ORDERED: NA CHLORIDE 0.9% 250 ML ONE (20:04)
[2018-11-09] MEDS ORDERED: PANTOPRAZOLE 40 MG INJ ONE (20:05)
[2018-11-09 20:21] LABS: Platelet Estimate ADEQ; Urine White Blood Cell Casts OK
[2018-11-09 20:22] LABS: Anisocytosis 1+; Blood Morphology Comment NOTED (NOT SEEN)
[2018-11-09] MEDS ORDERED: FUROSEMIDE 20 MG/ 2ML VIAL ONE (20:32)
--- NOTE | 2018-11-09 20:38 | ER ---
Nurse's Notes [facility] Name: Sandra Armas Age: 73 yrs Sex: Female : 1945 Arrival Date: 11/09/2018 Time: 17:53 Bed 5 Private MD: Diagnosis: Gastrointestinal hemorrhage, unspecified Presentation: 11/09 18:03 Presenting complaint: Dark bloody stools and nausea x 2 days. Transition of care: hb patient was not received from another setting of care. Onset of symptoms was November 08, 2018. Risk Assessment: Do you want to hurt yourself or someone else? Patient reports no desire to harm self or others. Initial Sepsis Screen: Does the patient meet any 2 criteria? No. Patient's initial sepsis screen is negative. Does the patient have a suspected source of infection? No. Patient's initial sepsis screen is negative. Care prior to arrival: None. 18:03 Method Of Arrival: Stretcher 18:03 Acuity: RYAN 3 hb Triage Assessment: 18:05 General: Appears in no apparent distress. comfortable, Behavior is cooperative, bp appropriate for age, anxious. Pain: Denies pain. EENT: No deficits noted. Neuro: No deficits noted. Cardiovascular: No deficits noted. Respiratory: No deficits noted. GI: Reports bloody stool. : No signs and/or symptoms were reported regarding the genitourinary system. Derm: No deficits noted. Musculoskeletal: No deficits noted. Historical: - Allergies: 18:04 Morphine; hb 18:04 Vancomycin; hb - PMHx: 18:04 Atrial Fib; Hypertension; Infection of Prosthetic Hip; Lung Cancer; lymphedema; hb - PSHx: 18:04 Bilateral hip replacements; Repair of left hip prosthesis; Tubal ligation; hb - Immunization history:: Adult Immunizations up to date. - Social history:: Smoking status: Patient/guardian denies using tobacco. - Ebola Screening: : No symptoms or risks identified at this time. Screenin:05 Abuse screen: Denies threats or abuse. Denies injuries from another. Nutritional bp screening: No deficits noted. Tuberculosis screening: No symptoms or risk factors identified. Fall Risk None identified. Assessment: 18:05 General: SEE TRIAGE NOTE. bp 19:47 General: Appears in no apparent distress. comfortable, Behavior is calm, cooperative, aj appropriate for age. Neuro: Level of Consciousness is awake, alert, obeys commands, Oriented to person, place, time, situation, Appropriate for age. Respiratory: Airway is patent Respiratory effort is even, unlabored, Respiratory pattern is regular, symmetrical. GI: Reports bloody stool. Derm: Skin is intact, is healthy with good turgor, Skin is pale. 22:37 Reassessment: report given to EMS. General: Appears in no apparent distress. jd3 uncomfortable, Behavior is calm, cooperative, appropriate for age. Pain: Complains of pain in abdomen. Neuro: Level of Consciousness is awake, alert, obeys commands, Oriented to person, place, time, situation. Cardiovascular: Capillary refill < 3 seconds Patient's skin is warm and dry. Respiratory: Airway is patent Respiratory effort is even, unlabored, Respiratory pattern is regular, symmetrical. GI: Abdomen is round non-distended, Reports lower abdominal pain, upper abdominal pain, bloody stool. : No signs and/or symptoms were reported regarding the genitourinary system. EENT: No signs and/or symptoms were reported regarding the EENT system. Derm: Skin is intact, Skin is dry, Skin is pale, Skin temperature is warm. Musculoskeletal: Circulation, motion, and sensation intact. Range of motion: intact in all extremities. Vital Signs: 18:04 BP 125 / 69; Pulse 100; Resp 20; Temp 97.2; Pulse Ox 94% on 2 lpm NC; Weight 77.11 kg; hb Height 5 ft. 7 in. (170.18 cm); Pain 8/10; 18:38 BP 110 / 70; Pulse 100; Resp 22; Pulse Ox 97% ; bp 19:46 BP 108 / 71; Pulse 92; Resp 13; Pulse Ox 96% on R/A; aj 20:56 BP 104 / 76; Pulse 95; Resp 16; Pulse Ox 96% on R/A; aj 18:04 Body Mass Index 26.63 (77.11 kg, 170.18 cm) ED Course: 17:53 Patient arrived in ED. as 18:00 Mitzi Walker, RN is Primary Nurse. aj 18:04 Triage completed. hb 18:04 Arm band placed on. hb 18:05 Patient has correct armband on for positive identification. Bed in low position. Call bp light in reach. Side rails up X2. Adult w/ patient. 18:13 Sivan Tatum FNP-C [facility]. kb 18:13 Khanh Snow MD is Attending Physician. kb 18:37 EKG done, by ED staff, reviewed by Khanh Snow MD. Initial lab(s) drawn, by me, sent ms to lab. Inserted saline lock: 20 gauge in right wrist, using aseptic technique. Blood collected. 18:44 XRAY Chest (1 view) In Process Unspecified. EDMS 21:23 Report given to Awilda Bennett RN. aj 22:40 No provider procedures requiring assistance completed. Patient transferred, IV remains jd3 in place. Administered Medications: 20:20 Drug: Vitamin K1 10 mg Route: Sub-Q; Site: right upper arm; aj 22:42 Follow up: Response: No adverse reaction jd3 20:20 Drug: ProTONIX 80 mg Route: IVP; Site: right hand; aj 22:41 Follow up: Response: No adverse reaction jd3 20:21 Drug: ProTONIX 8 mg/hr Route: IV; Rate: 25 ml/hr; Site: right hand; aj 22:42 Follow up: Response: No adverse reaction; IV Status: Infusion continued upon transfer jd3 20:38 Drug: Lasix 20 mg Route: IVP; Site: right hand; aj 22:41 Follow up: Response: No adverse reaction jd3 Outcome: 20:38 ER care complete, transfer ordered by . kb 22:41 Transferred by ground EMS to [facility], Transfer form completed. jd3 22:41 Condition: stable 22:41 Instructed on the need for transfer, Demonstrated understanding of instructions. 22:42 Patient left the ED. jd3 Signatures: Dispatcher [employer] EDMS Sivan Tatum, RANDALL CURTIS-Mitzi Godwin RN RN Deborah Miranda Maria ms Baxter, Heather, Troy Mcmahan RN, RN RN jd3 Peltier, Brian, RONA RN bp
--- NOTE | 2018-11-09 20:39 | EDPHYS ---
Physician Documentation [facility] Name: Sandra Armas Age: 73 yrs Sex: Female : 1945 Arrival Date: 11/09/2018 Time: 17:53 Bed 5 Private MD: ED Physician Khanh Snow HPI: 11/09 20:31 This 73 yrs old Female presents to ER via Stretcher with complaints of Bloody kb Stools. 20:31 The patient presents to the emergency department with rectal bleeding. Onset: The kb symptoms/episode began/occurred 3 day(s) ago. Abdominal pain: none is appreciated. Modifying factors: The symptoms are alleviated by nothing, the symptoms are aggravated by nothing. Associated signs and symptoms: Pertinent positives: weakness and fatigue. Severity of symptoms: At their worst the symptoms were mild moderate in the emergency department the symptoms are unchanged. The patient has not experienced similar symptoms in the past. The patient has not recently seen a physician. Pt reports dark, tarry stool, weakness and fatigue over the past 3 days. Denies fever, abd pain, nausea or vomiting. Pt has no history of this. Pt is on eliRateItAll for a fib. Historical: - Allergies: 18:04 Morphine; hb 18:04 Vancomycin; hb - PMHx: 18:04 Atrial Fib; Hypertension; Infection of Prosthetic Hip; Lung Cancer; lymphedema; hb - PSHx: 18:04 Bilateral hip replacements; Repair of left hip prosthesis; Tubal ligation; hb - Immunization history:: Adult Immunizations up to date. - Social history:: Smoking status: Patient/guardian denies using tobacco. - Ebola Screening: : No symptoms or risks identified at this time. ROS: 20:31 Constitutional: Negative for fever, chills, and weight loss, Cardiovascular: Negative kb for chest pain, palpitations, and edema, Respiratory: Negative for shortness of breath, cough, wheezing, and pleuritic chest pain, Back: Negative for injury and pain, : Negative for injury, bleeding, discharge, and swelling, MS/Extremity: Negative for injury and deformity, Skin: Negative for injury, rash, and discoloration. 20:31 Constitutional: Positive for fatigue. 20:31 Abdomen/GI: Positive for black/tarry stool. 20:31 Neuro: Positive for weakness. Exam: 20:31 Constitutional: This is a well developed, well nourished patient who is awake, alert, kb and in no acute distress. Head/Face: Normocephalic, atraumatic. ENT: Nares patent. No nasal discharge, no septal abnormalities noted. Tympanic membranes are normal and external auditory canals are clear. Oropharynx with no redness, swelling, or masses, exudates, or evidence of obstruction, uvula midline. Mucous membranes moist. Neck: Trachea midline, no thyromegaly or masses palpated, and no cervical lymphadenopathy. Supple, full range of motion without nuchal rigidity, or vertebral point tenderness. No Meningismus. Chest/axilla: Normal chest wall appearance and motion. Nontender with no deformity. No lesions are appreciated. Cardiovascular: Regular rate and rhythm with a normal S1 and S2. No gallops, murmurs, or rubs. Normal PMI, no JVD. No pulse deficits. Respiratory: Lungs have equal breath sounds bilaterally, clear to auscultation and percussion. No rales, rhonchi or wheezes noted. No increased work of breathing, no retractions or nasal flaring. Abdomen/GI: Soft, non-tender, with normal bowel sounds. No distension or tympany. No guarding or rebound. No evidence of tenderness throughout. Back: No spinal tenderness. No costovertebral tenderness. Full range of motion. Skin: Warm, dry with normal turgor. Normal color with no rashes, no lesions, and no evidence of cellulitis. MS/ Extremity: Pulses equal, no cyanosis. Neurovascular intact. Full, normal range of motion. Neuro: Awake and alert, GCS 15, oriented to person, place, time, and situation. Cranial nerves II-XII grossly intact. Motor strength 5/5 in all extremities. Sensory grossly intact. Cerebellar exam normal. Normal gait. 20:31 Abdomen/GI: Inspection: abdomen appears normal, Bowel sounds: normal, in all quadrants, Palpation: abdomen is soft and non-tender, in all quadrants, Rectal exam: rectal tone normal, Stool: guaiac positive, black, the spouse/significant other acts as a roping machine tender. Vital Signs: 18:04 BP 125 / 69; Pulse 100; Resp 20; Temp 97.2; Pulse Ox 94% on 2 lpm NC; Weight 77.11 kg; hb Height 5 ft. 7 in. (170.18 cm); Pain 8/10; 18:38 BP 110 / 70; Pulse 100; Resp 22; Pulse Ox 97% ; bp 19:46 BP 108 / 71; Pulse 92; Resp 13; Pulse Ox 96% on R/A; aj 20:56 BP 104 / 76; Pulse 95; Resp 16; Pulse Ox 96% on R/A; aj 18:04 Body Mass Index 26.63 (77.11 kg, 170.18 cm) hb MDM: 18:14 Patient medically screened. kb 20:06 Data reviewed: vital signs, nurses notes. Data interpreted: Pulse oximetry: on room air kb is 96 %. Interpretation: normal. Counseling: I had a detailed discussion with the patient and/or guardian regarding: the historical points, exam findings, and any diagnostic results supporting the discharge/admit diagnosis, lab results, radiology results, the need to transfer to another facility, [facility] does not immediately have the required specialist. ED course: Pt accepted for consult by Dr Kilgore with GI at [facility]. 20:36 ED course: Pt accepted for transfer by Dr Aldana, hospitalist at [facility]. kb 11/09 18:20 Order name: Basic Metabolic Panel; Complete Time: 18:57 kb 11/09 18:20 Order name: CBC with Diff kb 11/09 18:20 Order name: LFT's; Complete Time: 18:57 kb 11/09 18:20 Order name: Magnesium; Complete Time: 18:57 kb 11/09 18:20 Order name: NT PRO-BNP; Complete Time: 18:57 kb 11/09 18:20 Order name: PT-INR; Complete Time: 18:44 kb 11/09 18:20 Order name: Troponin (emerg Dept Use Only); Complete Time: 18:57 kb 11/09 18:20 Order name: XRAY Chest (1 view); Complete Time: 19:48 kb 11/09 18:20 Order name: Type And Screen; Complete Time: 19:29 kb 11/09 20:22 Order name: CBC Smear Scan EDMS 11/09 18:20 Order name: EKG; Complete Time: 18:22 kb 11/09 18:20 Order name: Cardiac monitoring; Complete Time: 18:24 kb 11/09 18:20 Order name: EKG - Nurse/Tech; Complete Time: 18:37 kb 11/09 18:20 Order name: IV Saline Lock; Complete Time: 18:24 kb 11/09 18:20 Order name: Labs collected and sent; Complete Time: 18:24 kb 11/09 18:20 Order name: O2 Per Protocol; Complete Time: 18:24 kb 11/09 18:20 Order name: O2 Sat Monitoring; Complete Time: 18:24 kb Administered Medications: 20:20 Drug: Vitamin K1 10 mg Route: Sub-Q; Site: right upper arm; aj 22:42 Follow up: Response: No adverse reaction jd3 20:20 Drug: ProTONIX 80 mg Route: IVP; Site: right hand; aj 22:41 Follow up: Response: No adverse reaction jd3 20:21 Drug: ProTONIX 8 mg/hr Route: IV; Rate: 25 ml/hr; Site: right hand; aj 22:42 Follow up: Response: No adverse reaction; IV Status: Infusion continued upon transfer jd3 20:38 Drug: Lasix 20 mg Route: IVP; Site: right hand; aj 22:41 Follow up: Response: No adverse reaction jd3 Disposition: 11/09/18 20:38 Transfer ordered to [facility]. Diagnosis is Gastrointestinal hemorrhage, unspecified. - Reason for transfer: Higher level of care. - Accepting physician is Katya. - Condition is Stable. - Problem is new. - Symptoms are unchanged. Addendum: 11/12/2018 09:04 Co-signature as Attending Physician, Khanh Snow MD I agree with the assessment and k dr plan of care. Signatures: Dispatcher [employer] Sivan Escobedo, ETL DEVELOPER-C ETL DEVELOPER-Ckb Mitzi Walker RN RN aj Rittger, Kevin, MD MD [facility] Lucia Mi, RONA REA Troy Wilder RN RN jd3 Corrections: (The following items were deleted from the chart) 11/09 22:42 20:38 11/09/2018 20:38 Transfer ordered to [facility]. Diagnosis is jd3 Gastrointestinal hemorrhage, unspecified. Reason for transfer: Higher level of care. Accepting physician is Katya. Condition is Stable. Problem is new. Symptoms are unchanged. kb
[2018-11-09 23:19] VITALS: TEMP 97.2
[2018-11-09 23:22] VITALS: O2SAT 96
[2018-11-09 23:23] VITALS: BP 104/76
--- NOTE | 2018-11-11 12:43 | EKG ---
Test Date: 2018-11-09 Test Time: 18:33:04 Loft Rigger: MEASUREMENT RESULTS: Intervals: Rate: 91 IN: QRSD: 82 QT: 324 QTc: 398 [place]: P: IN: QRS: 60 T: 203 INTERPRETIVE STATEMENTS: Undetermined rhythm Low voltage QRS Cannot rule out Anterior infarct, age undetermined Abnormal ECG Compared to ECG 09/17/2018 00:24:26 Atrial fibrillation no longer present Myocardial infarct finding still present Electronically Signed On 11-11-18 07:13:53 CDT by Jimenez Sullivan
== END 2018-11-09 22:42 | disposition short-term general hospital (02) ==
LOC: ER 17:49
DX: K92.2 Gastrointestinal hemorrhage, unspecified (principal); I48.91 Unspecified atrial fibrillation; I10 Essential (primary) hypertension; C34.90 Malignant neoplasm of unspecified part of unspecified bronchus or lung; Z88.1 Allergy status to other antibiotic agents; Z88.5 Allergy status to narcotic agent
CPT/HCPCS: 96365; 93005; 85025; 80048; 36415; 86900; 83735; 86850; 85610; 86901; 80076; 84484; 83880; 71045; 96375; 96372; 99285; 96366; J1940; J3430; C9113

== ENCOUNTER 2018-12-13 11:30 | Emergency (ER) | payer OTHER ==
--- OUTSIDE RECORDS SUMMARY | 2018-12-13 11:32 | XMS REPORT | Clinical Summary ---
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 Services Coordinator Device Shelf Model / Identifier Expiration Serial / Lot Date Body Prox Cone Hiofst Sz A 50mm Macarena - [id number] Hip Joint Left: [employer] 06/02/2026 [id number] / Implanted: 06/15/2016 at [facility] (Quantity not on file) Implants Hip / [id number] Head Fml Sld Modlr Co-Cr 40x-6mm B1f-Jvitwg - [id number] Hip Joint Left: [employer] 03/01/2026 [id number] / Implanted: 06/15/2016 at [facility] (Quantity not on file) Implants Hip / [id number] G7 Neutral E1 Liner 40mm I - [id number] IPM IMPLANT Left: [employer] [id number] / Implanted: 06/15/2016 at [facility] (Quantity not on file) DEVICES Hip / [id number] Screw G7 6.5x25 - [id number] IPM IMPLANT Left: [employer] 05/24/2026 [id number] / Implanted: 06/15/2016 at [facility] (Quantity not on file) DEVICES Hip / [id number] Screw G7 6.5x25 - [id number] IPM IMPLANT Left: [employer] 05/24/2026 [id number] / Implanted: 06/15/2016 at [facility] (Quantity not on file) DEVICES Hip / [id number] Screw G7 6.5x20 - [id number] IPM IMPLANT Left: [employer] 02/23/2026 [id number] / Implanted: 06/15/2016 at [facility] (Quantity not on file) DEVICES Hip / [id number] Screw G7 6.5x20 - [id number] IPM IMPLANT Left: [employer] 04/25/2026 [id number] / Implanted: 06/15/2016 at [facility] (Quantity not on file) DEVICES Hip / [id number] Screw G7 6.5x60 - [id number] IPM IMPLANT Left: [employer] 09/23/2025 [id number] / Implanted: Qty: 1 on 06/15/2016 by Quique Fowler MD at [facility] DEVICES Hip / Screw G7 6.5x35 - [id number] IPM IMPLANT Left: [employer] 06/02/2025 [id number] / Implanted: 06/15/2016 at [facility] (Quantity not on file) DEVICES Hip / [id number] Screw G7 6.5x20 - [id number] IPM IMPLANT Left: [employer] 03/13/2026 [id number] / Implanted: 06/15/2016 at [facility] (Quantity not on file) DEVICES Hip / [id number] G7 [place]se[place] Multihole 66mm I - [id number] IPM IMPLANT Left: [employer] [id number] / Implanted: 06/15/2016 at [facility] (Quantity not on file) DEVICES Hip / [id number] Mcaarena 81u638rg Intlkng Dist - [id number] IPM IMPLANT Left: [employer] [id number] / Implanted: 06/15/2016 at [facility] (Quantity not on file) DEVICES Hip / [id number] Screw Trans Kressman 5.0x40mm - [id number] IPM IMPLANT Left: [employer] [id number] / Implanted: 06/15/2016 at [facility] (Quantity not on file) DEVICES Hip / 5.2ovc83bl Ti Kaessmann Screw - [id number] IPM IMPLANT Left: [employer] [id number] / Implanted: 06/15/2016 at [facility] (Quantity not on file) DEVICES Hip / 5.6mhk35gl Ti Kaessmann Screw - [id number] IPM IMPLANT Left: [employer] [id number] / Implanted: 06/15/2016 at [facility] (Quantity not on file) DEVICES Hip / Cement Bone Full Dose Simplex P Radiopaque - [id number] Surgical Left: LINDA 06/07/2018 6191 1 010 / Implanted: Qty: 1 on 12/23/2015 by Quique Fowler MD at [facility] Bone Cement Hip ORTHOPEDICS / HIPS-KNEES [id number] Cement Bone Full-Dose Premxd W/ Tobr Simplex P Pack 10/Ea - [id number] Surgical Left: LINDA 04/09/2017 6197 9 010 / Implanted: Qty: 1 on 12/23/2015 by Quique Fowler MD at [facility] Bone Cement Hip ORTHOPEDICS / HIPS-KNEES [id number] Cement Bone Full-Dose Premxd W/ Tobr Simplex P Pack 10/Ea - [id number] Surgical Left: LINDA 02/07/2017 6197 9 010 / Implanted: Qty: 1 on 12/23/2015 by Quique Fowler MD at [facility] Bone Cement Hip ORTHOPEDICS / HIPS-KNEES [id number] Cement Bone Full-Dose Premxd W/ Tobr Simplex P Pack 10/Ea - [id number] Surgical Left: LINDA 04/09/2017 6197 9 010 / Implanted: Qty: 1 on 12/23/2015 by Quique Fowler MD at [facility] Bone Cement Hip ORTHOPEDICS / HIPS-KNEES [id number] Cement Bone Full-Dose Premxd W/ Tobr Simplex P Pack 10/Ea - [id number] Surgical Left: LINDA 05/10/2017 6197 9 010 / Implanted: Qty: 1 on 02/17/2016 by Quique Fowler MD at [facility] Bone Cement Hip ORTHOPEDICS / HIPS-KNEES [id number] Cement Bone Full-Dose Premxd W/ Tobr Simplex P Pack 10/Ea - [id number] Surgical Left: LINDA 04/09/2017 6197 9 010 / Implanted: Qty: 1 on 02/17/2016 by Quique Fowler MD at [facility] Bone Cement Hip ORTHOPEDICS / HIPS-KNEES [id number] Cement Bone Full-Dose Premxd W/ Tobr Simplex P Pack 10/Ea - [id number] Surgical Left: LINDA 07/08/2017 6197 9 010 / Implanted: Qty: 1 on 02/17/2016 by Quique Fowler MD at [facility] Bone Cement Hip ORTHOPEDICS / HIPS-KNEES [id number] Cement Bone Full Dose Simplex P Radiopaque - [id number] Surgical Left: LINDA 09/07/2018 6191 1 010 / Implanted: Qty: 1 on 02/17/2016 by Quique Fowler MD at [facility] Bone Cement Hip ORTHOPEDICS / HIPS-KNEES [id number] Cement Bone Full Dose Simplex P Radiopaque - [id number] Surgical Left: LINDA 06/07/2018 6191 1 010 / Implanted: Qty: 1 on 04/13/2016 by Quique Fowler MD at [facility] Bone Cement Hip ORTHOPEDICS / HIPS-KNEES [id number] Cement Bone Full-Dose Premxd W/ Tobr Simplex P Pack 10/Ea - [id number] Surgical Left: LINDA 08/07/2017 6197 9 010 / Implanted: Qty: 1 on 04/13/2016 by Quique Fowler MD at [facility] Bone Cement Hip ORTHOPEDICS / HIPS-KNEES [id number] Cement Bone Full-Dose Premxd W/ Tobr Simplex P Pack 10/Ea - [id number] Surgical Left: LINDA 08/07/2017 6197 9 010 / Implanted: Qty: 1 on 04/13/2016 by Quique Fowler MD at [facility] Bone Cement Hip ORTHOPEDICS / HIPS-KNEES [id number] Cement Bone Full-Dose Premxd W/ Tobr Simplex P Pack 10/Ea - [id number] Surgical Left: LINDA 08/07/2017 6197 9 010 / Implanted: Qty: 1 on 04/13/2016 by Quique Fowler MD at [facility] Bone Cement Hip ORTHOPEDICS / HIPS-KNEES [id number] Cement Bone Full-Dose Premxd W/ Tobr Simplex P Pack 10/Ea - [id number] Surgical Left: LINDA 08/07/2017 6197 9 010 / Implanted: Qty: 2 on 04/20/2016 by Quique Fowler MD at [facility] Bone Cement Hip ORTHOPEDICS / HIPS-KNEES [id number] Cement Bone Full-Dose Premxd W/ Tobr Simplex P Pack 10/Ea - [id number] Surgical Left: LINDA 08/07/2017 6197 9 010 / Implanted: Qty: 1 on 04/20/2016 by Quique Fowler MD at [facility] Bone Cement Hip ORTHOPEDICS / HIPS-KNEES [id number] Cement Bone Prep Univl Insrtr Sculp Fml Canal [place] Suct Sm - [id number] Surgical Left: LINDA 10/08/2020 [id number] / Implanted: Qty: 1 on 12/23/2015 by Quique Fowler MD at [facility] Implants; Hip INSTRUMENTS / Expanders; [id number] Extenders; Surgical Wires Cement Bone Prep Univl Insrtr Sculp Fml Canal [place] Suct Sm - [id number] Surgical Left: LINDA 12/09/2020 [id number] / Implanted: Qty: 1 on 02/17/2016 by Quique Fowler MD at [facility] Implants; Hip INSTRUMENTS / Expanders; [id number] Extenders; Surgical Wires Cement Bone Prep Univl Insrtr Sculp Fml Canal [place] Suct Sm - [id number] Surgical N/A: LINDA 01/08/2021 [id number] / Implanted: Qty: 1 on 04/20/2016 by Quique Fowler MD at [facility] Implants; N/A INSTRUMENTS / Expanders; [id number] Extenders; Surgical Wires Procedures Procedure Name Priority [...] Routine 12/13/2017 5:26 PM CDT CELLS after 12/12/2017 Results Transfuse RBC (12/13/2017 5:28 PM CDT)Only the most recent of7 resultswithin the time period is included.after 12/12/2017 Additional Health Concerns Infection Noted Time Resolved Time 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
--- OUTSIDE RECORDS SUMMARY | 2018-12-13 11:33 | XMS REPORT ---
:1945 Author Organization [facility] Address [address] [place] [address] Care Team Providers Name Role Phone MARIBEL BROEDRICK Unavailable Unavailable Problems This patient has no known problems. Allergies, Adverse Reactions, Alerts This patient has no known allergies or adverse reactions. Medications This patient has no known medications. Results Test Description Test Time Test Comments Text Results Atomic Results Result Comments MAGNESIUM 2018-11-11 08:08:00 Test Item Value Reference Range Comments MAGNESIUM (BEAKER) (test uerj=070) 1.7 mg/dL 1.6-2.6 BASIC METABOLIC [id number] 08:08:00 Test Item Value Reference Range Comments SODIUM (BEAKER) (test 141 meq/L 136-145 jtjf=504) POTASSIUM (BEAKER) (test 3.5 meq/L 3.5-5.1 ffni=859) CHLORIDE (BEAKER) (test 99 meq/L 98-107 fabf=881) CO2 (BEAKER) (test 35 meq/L 22-29 nsaf=143) BLOOD UREA NITROGEN 20 mg/dL 7-21 (BEAKER) (test upbu=353) CREATININE (BEAKER) (test 1.24 mg/dL 0.57-1.25 gzhk=953) GLUCOSE RANDOM (BEAKER) 75 mg/dL 70-105 (test yord=509) CALCIUM (BEAKER) (test 8.4 mg/dL 8.4-10.2 oegq=883) EGFR (BEAKER) (test 42 mL/min/1.73 sq m ESTIMATED GFR IS NOT sfts=6655) ACCURATE CREATININE CLEARANCE IN PREDICTING GLOMERULAR FILTRATION RATE. ESTIMATED GFR IS NOT APPLICABLE FOR DIALYSIS PATIENTS. CBC W/PLT COUNT & AUTO [id number] 06:34:00 Test Item Value Reference Range Comments WHITE BLOOD CELL COUNT (BEAKER) (test bmjc=188) 6.3 K/ L 3.5-10.5 RED BLOOD CELL COUNT (BEAKER) (test uypt=714) 2.62 M/ L 3.93-5.22 HEMOGLOBIN (BEAKER) (test jylz=923) 8.1 GM/DL 11.2-15.7 HEMATOCRIT (BEAKER) (test eaos=755) 27.9 % 34.1-44.9 MEAN CORPUSCULAR VOLUME (BEAKER) (test auxn=500) 106.5 fL 79.4-94.8 MEAN CORPUSCULAR HEMOGLOBIN (BEAKER) (test 30.9 pg 25.6-32.2 ngnu=991) MEAN CORPUSCULAR HEMOGLOBIN CONC (BEAKER) (test 29.0 GM/DL 32.2-35.5 ryhq=562) RED CELL DISTRIBUTION WIDTH (BEAKER) (test 16.8 % 11.7-14.4 tlrz=914) PLATELET COUNT (BEAKER) (test futz=344) 149 K/CU MM 150-450 MEAN PLATELET VOLUME (BEAKER) (test mxbb=729) 9.3 fL 9.4-12.3 NUCLEATED RED BLOOD CELLS (BEAKER) (test 0 /100 WBC 0-0 msfb=479) NEUTROPHILS RELATIVE PERCENT (BEAKER) (test 85 % eyhr=484) LYMPHOCYTES RELATIVE PERCENT (BEAKER) (test 5 % ohyg=106) MONOCYTES RELATIVE PERCENT (BEAKER) (test 7 % anpg=800) EOSINOPHILS RELATIVE PERCENT (BEAKER) (test 3 % bcif=085) BASOPHILS RELATIVE PERCENT (BEAKER) (test 0 % yoqe=694) NEUTROPHILS ABSOLUTE COUNT (BEAKER) (test 5.30 K/ L 1.56-6.13 uoik=261) LYMPHOCYTES ABSOLUTE COUNT (BEAKER) (test 0.33 K/ L 1.18-3.74 wzca=159) MONOCYTES ABSOLUTE COUNT (BEAKER) (test 0.43 K/ L 0.24-0.36 qqdm=770) EOSINOPHILS ABSOLUTE COUNT (BEAKER) (test 0.16 K/ L 0.04-0.36 cooq=663) BASOPHILS ABSOLUTE COUNT (BEAKER) (test 0.02 K/ L 0.01-0.08 dybx=704) IMMATURE GRANULOCYTES-RELATIVE PERCENT (BEAKER) 0 % 0-1 (test blgh=3609) PROTHROMBIN [id number] 09:55:00 Test Item Value Reference Range Comments PROTIME (BEAKER) (test mshp=748) 29.5 seconds 11.9-14.2 INR (BEAKER) (test vasj=362) 3.0 <=5.9 Effective 09/05/2018: PT Reference Range ChangeNew: 11.9-14.2 Previous: 11.7- 14.7RECOMMENDED COUMADIN/WARFARIN INR THERAPY RANGESSTANDARD DOSE: 2.0-3.0 Includes: PROPHYLAXIS for venous thrombosis, systemic embolization; TREATMENT for venous thrombosis and/or pulmonary embolus.HIGH RISK: Target INR is2.5-3.5 for patients wiht mechanical heart valves.CBC (HEMOGRAM ONLY)2018-11-10 09:31:00 Test Item Value Reference Range Comments WHITE BLOOD CELL COUNT (BEAKER) (test znpj=431) 6.0 K/ L 3.5-10.5 RED BLOOD CELL COUNT (BEAKER) (test jbmn=199) 2.54 M/ L 3.93-5.22 HEMOGLOBIN (BEAKER) (test mjlt=606) 8.0 GM/DL 11.2-15.7 HEMATOCRIT (BEAKER) (test xpjl=580) 27.1 % 34.1-44.9 MEAN CORPUSCULAR VOLUME (BEAKER) (test uyfy=193) 106.7 fL 79.4-94.8 MEAN CORPUSCULAR HEMOGLOBIN (BEAKER) (test 31.5 pg 25.6-32.2 rdmm=947) MEAN CORPUSCULAR HEMOGLOBIN CONC (BEAKER) (test 29.5 GM/DL 32.2-35.5 naks=271) RED CELL DISTRIBUTION WIDTH (BEAKER) (test 16.8 % 11.7-14.4 vtkh=292) PLATELET COUNT (BEAKER) (test njyt=504) 123 K/CU MM 150-450 MEAN PLATELET VOLUME (BEAKER) (test kefr=375) 8.8 fL 9.4-12.3 NUCLEATED RED BLOOD CELLS (BEAKER) (test 0 /100 WBC 0-0 vgkj=714) BASIC METABOLIC [id number] 08:17:00 Test Item Value Reference Range Comments SODIUM (BEAKER) (test 139 meq/L 136-145 gngp=554) POTASSIUM (BEAKER) (test 3.7 meq/L 3.5-5.1 Specimen slightly fzmp=632) hemolyzed CHLORIDE (BEAKER) (test 97 meq/L 98-107 zcph=059) CO2 (BEAKER) (test 31 meq/L 22-29 gbtm=792) BLOOD UREA NITROGEN 22 mg/dL 7-21 (BEAKER) (test jhmi=495) CREATININE (BEAKER) (test 1.38 mg/dL 0.57-1.25 Specimen slightly gvqe=929) hemolyzed GLUCOSE RANDOM (BEAKER) 82 mg/dL 70-105 (test omrl=179) CALCIUM (BEAKER) (test 8.4 mg/dL 8.4-10.2 wkog=077) EGFR (BEAKER) (test 37 mL/min/1.73 sq m ESTIMATED GFR IS NOT cxho=2642) ACCURATE CREATININE CLEARANCE IN PREDICTING GLOMERULAR FILTRATION RATE. ESTIMATED GFR IS NOT APPLICABLE FOR DIALYSIS PATIENTS. RAD, CHEST, 1 VIEW, NON [id number] 07:54:00Reason for exam:->EdemaShould this be performed at the bedside?->YesFINAL REPORT INDICATION: Edema TECHNIQUE: Chest radiograph, single view, portable technique. FINDINGS / IMPRESSION: Enlarged heart shadow with bilateral small pleural effusions and pulmonary edema.No pneumothorax.Osseous structures unremarkable. Signed: Chele Guo MDReportVerified Date/Time: 11/10/2018 07:54:56 Reading Location: [address] Ortho Consult Reading Room POCT-GLUCOSE [id number] 06:22:00 Test Item Value Reference Range Comments POC-GLUCOSE METER (BEAKER) 98 mg/dL 70-110 TESTED AT [facility] [address] [facility] (test grnm=1577) [facility] [address] CBC W/PLT COUNT & AUTO [id number] 03:40:00 Test Item Value Reference Range Comments WHITE BLOOD CELL COUNT (BEAKER) (test voay=094) 5.9 K/ L 3.5-10.5 RED BLOOD CELL COUNT (BEAKER) (test ookk=225) 2.37 M/ L 3.93-5.22 HEMOGLOBIN (BEAKER) (test rwzf=333) 7.5 GM/DL 11.2-15.7 HEMATOCRIT (BEAKER) (test qtse=773) 24.9 % 34.1-44.9 MEAN CORPUSCULAR VOLUME (BEAKER) (test zlya=475) 105.1 fL 79.4-94.8 MEAN CORPUSCULAR HEMOGLOBIN (BEAKER) (test 31.6 pg 25.6-32.2 hxjd=067) MEAN CORPUSCULAR HEMOGLOBIN CONC (BEAKER) (test 30.1 GM/DL 32.2-35.5 zbds=889) RED CELL DISTRIBUTION WIDTH (BEAKER) (test 16.9 % 11.7-14.4 jxhb=012) PLATELET COUNT (BEAKER) (test ycgg=993) 116 K/CU MM 150-450 MEAN PLATELET VOLUME (BEAKER) (test viie=073) 8.8 fL 9.4-12.3 NUCLEATED RED BLOOD CELLS (BEAKER) (test 0 /100 WBC 0-0 aquy=390) NEUTROPHILS RELATIVE PERCENT (BEAKER) (test 84 % fflc=650) LYMPHOCYTES RELATIVE PERCENT (BEAKER) (test 6 % tibo=331) MONOCYTES RELATIVE PERCENT (BEAKER) (test 8 % mnwe=322) EOSINOPHILS RELATIVE PERCENT (BEAKER) (test 2 % zxko=872) BASOPHILS RELATIVE PERCENT (BEAKER) (test 0 % ivaq=232) NEUTROPHILS ABSOLUTE COUNT (BEAKER) (test 4.97 K/ L 1.56-6.13 pcaq=865) LYMPHOCYTES ABSOLUTE COUNT (BEAKER) (test 0.34 K/ L 1.18-3.74 fcgb=683) MONOCYTES ABSOLUTE COUNT (BEAKER) (test 0.47 K/ L 0.24-0.36 iiem=740) EOSINOPHILS ABSOLUTE COUNT (BEAKER) (test 0.10 K/ L 0.04-0.36 syhn=583) BASOPHILS ABSOLUTE COUNT (BEAKER) (test 0.01 K/ L 0.01-0.08 pcaf=805) IMMATURE GRANULOCYTES-RELATIVE PERCENT (BEAKER) 1 % 0-1 (test rkkz=9352) HEPATIC FUNCTION [id number] 03:26:00 Test Item Value Reference Range Comments TOTAL PROTEIN (BEAKER) (test zloa=309) 5.9 gm/dL 6.0-8.3 ALBUMIN (BEAKER) (test azrm=4288) 2.5 g/dL 3.5-5.0 BILIRUBIN TOTAL (BEAKER) (test cltp=854) 1.0 mg/dL 0.2-1.2 BILIRUBIN DIRECT (BEAKER) (test xdlq=171) 0.7 mg/dL 0.1-0.5 ALKALINE PHOSPHATASE (BEAKER) (test czzf=731) 151 U/L 40-150 AST (SGOT) (BEAKER) (test qizo=716) 24 U/L 5-34 ALT (SGPT) (BEAKER) (test tcju=685) 12 U/L 6-55 B-TYPE NATRIURETIC FACTOR (BNP)2018-11-10 03:24:00 Test Item Value Reference Range Comments B-TYPE NATRIURETIC PEPTIDE (BEAKER) (test 790 pg/mL 0-100 cnql=405) [id number] 03:10:00 Test Item Value Reference Range Comments PROTIME (BEAKER) (test nmrq=924) 34.9 seconds 11.9-14.2 INR (BEAKER) (test ivhb=104) 3.7 <=5.9 PARTIAL THROMBOPLASTIN TIME (BEAKER) (test 52.3 seconds 22.5-36.0 pajm=557) Effective 09/05/2018: PT Reference Range ChangeNew: 11.9-14.2 Previous: 11.7- 14.7RECOMMENDED COUMADIN/WARFARIN INR THERAPY RANGESSTANDARD DOSE: 2.0-3.0 Includes: PROPHYLAXIS for venous thrombosis, systemic embolization; TREATMENT for venous thrombosis and/or pulmonary embolus.HIGH RISK: Target INR is2.5-3.5 for patients wiht mechanical heart valves.
--- OUTSIDE RECORDS SUMMARY | 2018-12-13 11:33 | XMS REPORT | Clinical Summary ---
:1945 Author Organization [facility] Address [address] [place] [address] Care Team Providers Name Role Phone Unavailable Primary Care Provider Unavailable Allergies Active Allergy Reactions Severity Noted Date Comments Ceftriaxone Shortness Of Breath High 11/10/2018 Morphine 11/10/2018 Vancomycin Analogues Other (See Comments) High 11/10/2018 Kidney damage Medications Medication Sig Dispensed Refills Start Date End Date Status hydrOXYzine Take 25 mg by 0 Active (ATARAX) 25 MG mouth every 8 tablet (eight) hours as needed for Itching. carvedilol (COREG) Take 12.5 mg by 0 Active 12.5 MG tablet mouth daily. citalopram Take 40 mg by 0 Active (CELEXA) 40 MG mouth daily. tablet furosemide (LASIX) Take 40 mg by 0 Active 40 MG tablet mouth daily. HYDROcodone-acetam Take 1 tablet 0 Active inophen (NORCO by mouth every 7.5-325) 7.5-325 6 (six) hours mg per tablet as needed for Pain. iron-folic Take 1 capsule 0 Active acid-mv, min by mouth daily. cmb#15 (HEMOCYTE-PLUS) 106 mg iron- 1 mg Cap traMADol (ULTRAM) Take 50 mg by 0 Active 50 mg tablet mouth 2 (two) times daily. amiodarone Take 400 mg by 0 Active (PACERONE) 400 MG mouth 2 (two) tablet times daily. doxycycline Take 100 mg by 0 Active (VIBRAMYCIN) 100 mouth 2 (two) MG capsule times daily. metOLazone Take 5 mg by 0 Active (ZAROXOLYN) 5 MG mouth every 6 tablet (six) hours. ondansetron Take 4 mg by 0 Active (ZOFRAN) 4 MG mouth every 6 tablet (six) hours. pantoprazole Take 1 tablet 120 tablet 0 11/11/2018 Active (PROTONIX) 40 MG (40 mg total) 9 tablet by mouth 2 (two) times daily with breakfast and dinner for 60 days. apixaban (ELIQUIS) Take 5 mg by 0 Discontinued 5 mg Tab tablet mouth 2 (two) 9 times daily. Active Problems Problem Noted Date GI bleed 11/10/2018 Encounters Date Type Specialty Care Team Description 11/10/2018 Anesthesia Event Gastroenterology Sandra Yeager CRNA 11/10/2018 Surgery Gastroenterology Jimenez Garcia UPPER ENDOSCOPY MD Nicole 11/10/2018 Orders Only General Internal Medicine 11/10/2018 Travel 11/09/2018 Hospital General Internal Leanna Aldana Gastrointestinal hemorrhage, unspecified gastrointestinal hemorrhage type; - Encounter Medicine Radha Correa, Acute congestive heart failure, unspecified heart failure type (HCC); 11/11/2018 Atrial fibrillation, unspecified type (HCC); Rowan, Elevated INR (international normalized ratio) due to prior anticoagulant medication ingestion; Heriberto Faulkner, Cellulitis of lower extremity, unspecified laterality; Gastric ulcer with hemorrhage, unspecified chronicity 11/09/2018 Abstract Internal Medicine Leanna Aldana MD after 12/12/2017 Social History Tobacco Use Types Packs/Day Years Used Date Former Smoker 10 Quit: 04/10/2008 Smokeless Tobacco: Never Used Alcohol Use Drinks/Week oz/Week Comments No Alcohol Habits Answer Date Recorded How often do you have a drink containing alcohol? Never 11/10/2018 How many drinks containing alcohol do you have on a typical Not asked day when you are drinking? How often do you have six or more drinks on one occasion? Not asked Sex Assigned at Date Recorded Not on file Job Start Date Occupation Industry Not on file Not on file Not on file Travel History Travel Start Travel End No recent travel history available. Last Filed Vital Signs Vital Sign Reading Time Taken Blood Pressure 109/62 11/11/2018 12:32 PM CDT Pulse 103 11/11/2018 12:32 PM CDT Temperature 36.6 C (97.8 F) 11/11/2018 12:32 PM CDT Respiratory Rate 16 11/11/2018 12:32 PM CDT Oxygen Saturation 99% 11/11/2018 12:32 PM CDT Inhaled Oxygen Concentration - - Weight 83.8 kg (184 lb 11.2 oz) 11/11/2018 6:00 AM CDT Height - - Body Mass Index - - Plan of Treatment Not on file Procedures Procedure Name Priority Date/Time Associated Comments Diagnosis RHYTHM STRIP - SCAN 11/15/2018 2:55 PM CDT REPORT OF PROCEDURE - 11/12/2018 12:11 ENDOSCOPY SCAN PM CDT RHYTHM STRIP - SCAN 11/12/2018 12:10 PM CDT ECHOCARDIOGRAM REPORT - 11/11/2018 9:23 SCAN PM CDT TRANSFUSION SERVICE 11/11/2018 6:02 REPORT - SCAN PM CDT 2D ECHO W/ DOPPLER Routine 11/11/2018 11:49 Results for this (CW/PW/COLOR) AM CDT procedure are in the results section. CBC W/PLT COUNT & AUTO Routine 11/11/2018 4:55 Results for this DIFFERENTIAL AM CDT procedure are in the results section. CBC W/PLT COUNT & AUTO Routine 11/11/2018 4:55 Results for this DIFFERENTIAL AM CDT procedure are in the results section. MAGNESIUM Routine 11/11/2018 4:55 Results for this AM CDT procedure are in the results section. BASIC METABOLIC PANEL Routine 11/11/2018 4:55 Results for this (7) AM CDT procedure are in the results section. REPORT OF PROCEDURE - 11/10/2018 4:10 ENDOSCOPY URL PM CDT UPPER ENDOSCOPY 11/10/2018 2:05 Melena PM CDT PROTHROMBIN TIME/INR Routine 11/10/2018 9:13 Results for this AM CDT procedure are in the results section. CBC (HEMOGRAM ONLY) Routine 11/10/2018 9:13 Results for this AM CDT procedure are in the results section. BASIC METABOLIC PANEL Routine 11/10/2018 7:23 Results for this (7) AM CDT procedure are in the results section. POCT-GLUCOSE METER Routine 11/10/2018 6:19 Results for this AM CDT procedure are in the results section. XR CHEST 1 VIEW Routine 11/10/2018 4:24 Results for this PORTABLE/BEDSIDE AM CDT procedure are in the results section. ABORH, MANUAL STAT 11/10/2018 3:20 Results for this AM CDT procedure are in the results section. ECG 12-LEAD Routine 11/10/2018 3:14 Results for this AM CDT procedure are in the results section. ECG 12-LEAD Routine 11/10/2018 3:13 Results for this AM CDT procedure are in the results section. ECG 12-LEAD Routine 11/10/2018 3:01 Results for this AM CDT procedure are in the results section. ECG 12-LEAD Routine 11/10/2018 3:00 Results for this AM CDT procedure are in the results section. CBC W/PLT COUNT & AUTO Routine 11/10/2018 2:43 Results for this DIFFERENTIAL AM CDT procedure are in the results section. TYPE AND SCREEN, Routine 11/10/2018 2:43 Results for this AUTOMATED AM CDT procedure are in the results section. B-TYPE NATRIURETIC Routine 11/10/2018 2:43 Results for this FACTOR (BNP) AM CDT procedure are in the results section. CBC W/PLT COUNT & AUTO Routine 11/10/2018 2:43 Results for this DIFFERENTIAL AM CDT procedure are in the results section. PT/APTT Routine 11/10/2018 2:43 Results for this AM CDT procedure are in the results section. HEPATIC FUNCTION PANEL Routine 11/10/2018 2:43 Results for this AM CDT procedure are in the results section. after 12/12/2017 Results RHYTHM STRIP - SCAN (11/15/2018 2:55 PM CDT)Only the most recent of2 resultswithin the time period is included. Narrative Performed At EKG-SCANNED (11/12/2018 12:11 PM CDT) Narrative Performed At ECHOCARDIOGRAM REPORT - SCAN (11/11/2018 9:23 PM CDT) Narrative Performed At TRANSFUSION SERVICE REPORT - SCAN (11/11/2018 6:02 PM CDT) Narrative Performed At 2D Echo W/Doppler(CW/PW/Color) (11/11/2018 11:49 AM CDT) Ejection Fraction [facility] Specimen Narrative Performed At Transthoracic Echocardiography Report (TTE) [facility] Demographics Patient Name SANDRA ARMAS Date of Study 11/11/2018 TEABERRY [id number] GenderFemale Visit Number [id number] Unknown [id number] Room Number 955 Number Date of Birth1945Referring Physician Age73 year(s)Clinical Case Manager Torsten Ochoa [facility] Mohinder EldridgepretingPhysician SILVESTRE Parikh Procedure Type of Study TTE procedure:2DECHO W DOPPLER(CW/PW/COLOR) (Routine) Indications:Shortness of breath. Clinical History Atrial Fibrillation/flutter Cancer Congestive Heart Failure Hypertension Lymphedema HGB 8 HCT 27.9 % Height: 67 inches Weight: 83.46 kg (184 lbs) BSA: 1.95 m^2 BMI: 28.82 kg/m^2 HR: 96 bpm BP: 103/55 mmHg Summary The left ventricle is chamber size (by PSLAX dimension) is normal (female - LVIDd 3.8-5.2cm) . Normal LV wall thickness. Septal motion is paradoxical, suggestive of RV volume overload . The other segments contract normally. Global LV systolic function normal . Estimated LVEF by qualitative assessment is normal (60%) . Grade 3 diastolic dysfunction (marked elevated LA pressure). Severe tricuspid regurgitation. Estimated peak systolic PA pressure is 80-85 mmHg . The estimated RA pressure by IVC dynamics 16-20mmHg . RV chamber size is severely enlarged . Global RV systolic function is moderately reduced . Rapid rhythm during the exam. Previous Study No prior exam available for comparison. Signature Findings Rhythm/BPRapid rhythm during the exam. Left Ventricle The left ventricle is chamber size (by PSLAX di mension) is normal (female - LVIDd 3.8-5.2cm) . No rmal LV wall thickness. Septal motion is pa radoxical, suggestive of RV volume overload . The ot her segments contract normally. Global LV sy stolic function normal . Estimated LVEF by qu alitative assessment is normal (60%) . Grade 3 di astolic dysfunction (marked elevated LA pr essure). Left AtriumLA size is moderately enlarged (42-48 ml/m2) . Right VentricleRV chamber size is severely enlarged . Gl obal RV systolic function is moderately reduced . Right Atrium RA cavity size is severely enlarged . Aortic Valve Mild AoV cusp thickening. LCC is not seen. A trace of aortic regurgitation. Bi cuspid AV cannot be ruled out . Mitral Valve Mild MV leaflet thickening. Mi ld mitral annular calcification. Mi ld mitral regurgitation. El evated gradients across the MV secondary to MAC an d MR. Tricuspid ValveMild TV leaflet thickening. Se ean tricuspid regurgitation. Es timated peak systolic PA pressure is 80-85 mmHg . Pulmonic Valve Normal PV structure and function. A trace of pulmonary regurgitation. AortaAortic root size (SInus of Valsalva diameter) is no rmal . PericardiumA moderate pericardial effusion is present around RA . IVC/SVC/PA/PV/PleuralPulmonary vein flow is consistent with increased LA P . Th e estimated RA pressure by IVC dynamics 16-20mmHg . He patic Vein pulsed Doppler pattern shows prominent sy stolic reversal wave . Chambers/Structures Left Atrium LA Volume: 87.96 ml LA Area: 24.68 cm^2 LA Vol. Index: 45 ml/m^2 Left Ventricle LVIDd: 4.15 cm LV Septum Diastolic: 0.97 cm LV PW Diastolic: 1.01 cm LVOT Diameter: 1.99 cm Right Atrium RA Vol. (Sngl Plane): 87.29 ml Right Ventricle TAPSE: 1.05 cm Aorta Ao Root S of Lauren.: 3.16 cm Doppler/Quantitative Measurements Mitral Valve MV Peak E-Wave: 1.64 m/sMV Peak A-Wave: 0.5 m/s E/A Ratio: 3.31 Mean Velocity: 0.96 m/s Peak Gradient: 10.78 mmHg Mean Gradient: 4.25 mmHgDeceleration Time: 150.1 msec Area (continuity): 2.15 cm^2 MV VTI: 26.37 cm MV Marvin. Peak: 1.54 m/s Tissue Doppler E' Lateral Velocity: 0.07 m/s E/E': 24.61 Aortic Valve Peak Velocity: 1.31 m/sMean Velocity: 0.89 m/s Peak Gradient: 6.91 mmHg Mean Gradient: 3.79 mmHg AV Area (continuity): 2.66 cm^2 AV VTI: 21.31 cm AV DVI: 0.86 LVOT Peak Velocity: 1 m/s Peak Gradient: 4.02 mmHg Mean Velocity: 0.7 m/s Mean Gradient: 2.19 mmHg LVOT Diameter: 1.99 cm LVOT VTI: 18.26 cm LVOT Area: 3.11 cm^2 LVOT SV:56.76 ml LVOT CO: 5.45 l/minLVOT CI: 2.79 l/min/m^2 Tricuspid Valve TR Velocity: 3.76 m/s TR Gradient: 56.68 mmHg Procedure Note Interface, External Ris In - 11/11/2018 5:07 PM CDT Transthoracic Echocardiography Report (TTE) Demographics Patient Name SANDRA ARMAS Date of Study 11/11/2018 TEABERRY Gender Female Visit Number [id number] Race Unknown Room Number 955 Number Date of 1945 Referring Physician Age 73 year(s) Clinical Case Manager Torsten Ochoa [facility] Survey Superintendent Madhav Chacon Interpreting Ady Us, Physician Procedure Type of Study TTE procedure:2DECHO W DOPPLER(CW/PW/COLOR) (Routine) Indications:Shortness of breath. Clinical History Atrial Fibrillation/flutter Cancer Congestive Heart Failure Hypertension Lymphedema HGB 8 HCT 27.9 % Height: 67 inches Weight: 83.46 kg (184 lbs) BSA: 1.95 m^2 BMI: 28.82 kg/m^2 HR: 96 bpm BP: 103/55 mmHg Summary The left ventricle is chamber size (by PSLAX dimension) is normal (female - LVIDd 3.8-5.2cm) . Normal LV wall thickness. Septal motion is paradoxical, suggestive of RV volume overload . The other segments contract normally. Global LV systolic function normal . Estimated LVEF by qualitative assessment is normal (60%) . Grade 3 diastolic dysfunction (marked elevated LA pressure). Severe tricuspid regurgitation. Estimated peak systolic PA pressure is 80-85 mmHg . The estimated RA pressure by IVC dynamics 16-20mmHg . RV chamber size is severely enlarged . Global RV systolic function is moderately reduced . Rapid rhythm during the exam. Previous Study No prior exam available for comparison. Signature Findings Rhythm/BP Rapid rhythm during the exam. Left Ventricle The left ventricle is chamber size (by PSLAX dimension) is normal (female - LVIDd 3.8-5.2cm) . Normal LV wall thickness. Septal motion is paradoxical, suggestive of RV volume overload . The other segments contract normally. Global LV systolic function normal . Estimated LVEF by qualitative assessment is normal (60%) . Grade 3 diastolic dysfunction (marked elevated LA pressure). Left Atrium LA size is moderately enlarged (42-48 ml/m2) . Right Ventricle RV chamber size is severely enlarged . Global RV systolic function is moderately reduced . Right Atrium RA cavity size is severely enlarged . Aortic Valve Mild AoV cusp thickening. LCC is not seen. A trace of aortic regurgitation. Bicuspid AV cannot be ruled out . Mitral Valve Mild MV leaflet thickening. Mild mitral annular calcification. Mild mitral regurgitation. Elevated gradients across the MV secondary to MAC and MR. Tricuspid Valve Mild TV leaflet thickening. Severe tricuspid regurgitation. Estimated peak systolic PA pressure is 80-85 mmHg . Pulmonic Valve Normal PV structure and function. A trace of pulmonary regurgitation. Aorta Aortic root size (SInus of Valsalva diameter) is normal . Pericardium A moderate pericardial effusion is present around RA. IVC/SVC/PA/PV/Pleural Pulmonary vein flow is consistent with increased LAP . The estimated RA pressure by IVC dynamics 16-20mmHg . Hepatic Vein pulsed Doppler pattern shows prominent systolic reversal wave . Chambers/Structures Left Atrium LA Volume: 87.96 ml LA Area: 24.68 cm^2 LA Vol. Index: 45 ml/m^2 Left Ventricle LVIDd: 4.15 cm LV Septum Diastolic: 0.97 cm LV PW Diastolic: 1.01 cm LVOT Diameter: 1.99 cm Right Atrium RA Vol. (Sngl Plane): 87.29 ml Right Ventricle TAPSE: 1.05 cm Aorta Ao Root S of Lauren.: 3.16 cm Doppler/Quantitative Measurements Mitral Valve MV Peak E-Wave: 1.64 m/s MV Peak A-Wave: 0.5 m/s E/A Ratio: 3.31 Mean Velocity: 0.96 m/s Peak Gradient: 10.78 mmHg Mean Gradient: 4.25 mmHg Deceleration Time: 150.1 msec Area (continuity): 2.15 cm^2 MV VTI: 26.37 cm MV Marvin. Peak: 1.54 m/s Tissue Doppler E' Lateral Velocity: 0.07 m/s E/E': 24.61 Aortic Valve Peak Velocity: 1.31 m/s Mean Velocity: 0.89 m/s Peak Gradient: 6.91 mmHg Mean Gradient: 3.79 mmHg AV Area (continuity): 2.66 cm^2 AV VTI: 21.31 cm AV DVI: 0.86 LVOT Peak Velocity: 1 m/s Peak Gradient: 4.02 mmHg Mean Velocity: 0.7 m/s Mean Gradient: 2.19 mmHg LVOT Diameter: 1.99 cm LVOT VTI: 18.26 cm LVOT Area: 3.11 cm^2 LVOT SV:56.76 ml LVOT CO: 5.45 l/min LVOT CI: 2.79 l/min/m^2 Tricuspid Valve TR Velocity: 3.76 m/s TR Gradient: 56.68 mmHg Performing Organization Address City/State/Zipcode Phone Number [facility] CBC with platelet count + automated diff (11/11/2018 4:55 AM CDT)Only the most recent of2 resultswithin the time period is included. WBC 6.3 3.5 - 10.5 K/L [facility] RBC 2.62 (L) 3.93 - 5.22 M/L [facility] Hemoglobin 8.1 (L) 11.2 - 15.7 GM/DL [facility] Hematocrit 27.9 (L) 34.1 - 44.9 % [facility] MCV 106.5 (H) 79.4 - 94.8 fL [facility] MCH 30.9 25.6 - 32.2 pg [facility] MCHC 29.0 (L) 32.2 - 35.5 GM/DL [facility] RDW 16.8 (H) 11.7 - 14.4 % [facility] Platelets 149 (L) 150 - 450 K/CU MM [facility] MPV 9.3 (L) 9.4 - 12.3 fL [facility] nRBC 0 0 - 0 /100 WBC [facility] % Neutros 85 % [facility] % Lymphs 5 % [facility] % Monos 7 % [facility] % Eos 3 % [facility] % Baso 0 % [facility] # Neutros 5.30 1.56 - 6.13 K/L [facility] # Lymphs 0.33 (L) 1.18 - 3.74 K/L [facility] # Monos 0.43 (H) 0.24 - 0.36 K/L [facility] # Eos 0.16 0.04 - 0.36 K/L [facility] # Baso 0.02 0.01 - 0.08 K/L [facility] Immature 0 0 - 1 % [facility] Specimen Blood Performing Organization Address City/State/Zipcode Phone Number [facility] [address] [place] [address] CENTER Magnesium (11/11/2018 4:55 AM CDT) Magnesium 1.7 1.6 - 2.6 mg/dL [facility] Specimen Blood Performing Organization Address City/[facility]/Zipcode Phone Number [facility] [address] [place] [address] [place] Basic metabolic panel (11/11/2018 4:55 AM CDT)Only the most recent of2 resultswithin the time period is included. Sodium 141 136 - 145 meq/L [facility] Potassium 3.5 3.5 - 5.1 meq/L [facility] Chloride 99 98 - 107 meq/L [facility] CO2 35 (H) 22 - 29 meq/L [facility] BUN 20 7 - 21 mg/dL [facility] Creatinine 1.24 0.57 - 1.25 mg/dL [facility] Glucose 75 70 - 105 mg/dL [facility] Calcium 8.4 8.4 - 10.2 mg/dL [facility] EGFR 42Comment: ESTIMATED GFR IS mL/min/1.73 sq m [facility] NOT ACCURATE CREATININE [facility] CENTER CLEARANCE IN PREDICTING GLOMERULAR FILTRATION RATE. ESTIMATED GFR IS NOT APPLICABLE FOR DIALYSIS PATIENTS. Specimen Blood Performing Organization Address City/[facility] Cent[facility]ode Phone Number [facility] [address] [place] [address] CENTER REPORT OF PROCEDURE - ENDOSCOPY URL (11/10/2018 4:10 PM CDT) Narrative Performed At Prothrombin time/INR (11/10/2018 9:13 AM CDT) Protime 29.5 (H) 11.9 - 14.2 seconds [facility] INR 3.0 <=5.9 [facility] Specimen Blood Narrative Performed At Effective 09/05/2018: PT Reference Range [facility] Change New: 11.9-14.2Previous: 11.7-14.7 RECOMMENDED COUMADIN/WARFARIN INR THERAPY RANGES STANDARD DOSE: 2.0-3.0Includes: PROPHYLAXIS for venous thrombosis, systemic embolization; TREATMENT for venous thrombosis and/or pulmonary embolus. HIGH RISK: Target INR is 2.5-3.5 for patients wiht mechanical heart valves. Performing Organization Address City/[facility] Centercode Phone Number [facility] [address] [place] [address] CENTER CBC (Hemogram only) (11/10/2018 9:13 AM CDT) WBC 6.0 3.5 - 10.5 K/L [facility] RBC 2.54 (L) 3.93 - 5.22 M/L [facility] Hemoglobin 8.0 (L) 11.2 - 15.7 GM/DL [facility] Hematocrit 27.1 (L) 34.1 - 44.9 % [facility] MCV 106.7 (H) 79.4 - 94.8 fL [facility] MCH 31.5 25.6 - 32.2 pg [facility] MCHC 29.5 (L) 32.2 - 35.5 GM/DL [facility] RDW 16.8 (H) 11.7 - 14.4 % [facility] Platelets 123 (L) 150 - 450 K/CU MM [facility] MPV 8.8 (L) 9.4 - 12.3 fL [facility] nRBC 0 0 - 0 /100 WBC [facility] Specimen Blood Performing Organization Address City/[facility]/Zipcode Phone Number [facility] [address] [phone] CENTER POC-Glucose meter (11/10/2018 6:19 AM CDT) POC-Glucose Meter 98Comment: TESTED AT 70 - 110 mg/dL [facility] [address] [place] [address] [place] [address] Specimen Blood Performing Organization Address City/[facility]/Zipcode Phone Number [address] [address] [place] XR chest 1 view portable / bedside (11/10/2018 4:24 AM CDT) Specimen Narrative Performed At FINAL REPORT [employer] INDICATION: Edema TECHNIQUE: Chest radiograph, single view, portable technique. FINDINGS / IMPRESSION: Enlarged heart shadow with bilateral small pleural effusions and pulmonary edema. No pneumothorax. Osseous structures unremarkable. Signed: Yonatan Guo MD Report Verified Date/Time:11/10/2018 07:54:56 Reading Location: [facility] C0[facility] Ortho Consult Reading Room Procedure Note Interface, External Ris In - 11/10/2018 7:57 AM CDT FINAL REPORT INDICATION: Edema TECHNIQUE: Chest radiograph, single view, portable technique. FINDINGS / IMPRESSION: Enlarged heart shadow with bilateral small pleural effusions and pulmonary edema. No pneumothorax. Osseous structures unremarkable. Signed: Yonatan Guo MD Report Verified Date/Time: 11/10/2018 07:54:56 Reading Location: [facility] C013 Ortho Consult Reading Room Performing Organization Address City/State/Zipcode Phone Number [facility] [employer] ABORH, manual (11/10/2018 3:20 AM CDT) ABO Grouping B [facility] Rh Factor POS [facility] Specimen Blood Performing Organization Address City/State/Zipcode Phone Number [address] [phone] ECG 12 lead (11/10/2018 3:14 AM CDT)Only the most recent of4 resultswithin the time period is included. Specimen Narrative Performed At Ventricular Rate 98 BPM [facility] MUSE Atrial Rate 98 BPM QRS Duration 106 ms Q-T Interval 318 ms QTC Calculation(Bazett) 405 ms R [place] 60 degrees T [place] 201 degrees Atrial fibrillation Nonspecific ST and T wave abnormality Abnormal ECG When compared with ECG of 10-NOV-2018 03:13, QT has shortened Confirmed by MD KURT, SHASTA ([id number]) on 11/11/2018 10:30:42 AM Procedure Note Interface, External Ris In - 11/11/2018 10:30 AM CDT Ventricular Rate 98 BPM Atrial Rate 98 BPM QRS Duration 106 ms Q-T Interval 318 ms QTC Calculation(Bazett) 405 ms R [place] 60 degrees T [place] 201 degrees Atrial fibrillation Nonspecific ST and T wave abnormality Abnormal ECG When compared with ECG of 10-NOV-2018 03:13, QT has shortened Confirmed by MD KURT, SHASTA ([id number]) on 11/11/2018 10:30:42 AM Performing Organization Address City/[facility] Centercode Phone Number [facility] MUSE Type and screen, automated (11/10/2018 2:43 AM CDT) ABO/RH AUTOMATED (BEAKER) B POSITIVE [facility] Ab Scrn NEGATIVE [facility] Specimen Blood Performing Organization Address City/[facility] Centercomi Phone Number [facility] [address] [place] [address] [phone] PT/aPTT (11/10/2018 2:43 AM CDT) Protime 34.9 (H) 11.9 - 14.2 seconds [facility] INR 3.7 <=5.9 [facility] PTT 52.3 (H) 22.5 - 36.0 seconds [facility] Specimen Blood Narrative Performed At Effective 09/05/2018: PT Reference Range [facility] Change New: 11.9-14.2Previous: 11.7-14.7 RECOMMENDED COUMADIN/WARFARIN INR THERAPY RANGES STANDARD DOSE: 2.0-3.0Includes: PROPHYLAXIS for venous thrombosis, systemic embolization; TREATMENT for venous thrombosis and/or pulmonary embolus. HIGH RISK: Target INR is 2.5-3.5 for patients wiht mechanical heart valves. Performing Organization Address City/State/[facility] Medical Centercode Phone Number [facility] [address] [place] [address] CENTER B-type Natriuretic Factor (BNP) (11/10/2018 2:43 AM CDT) BNP 790 (H) 0 - 100 pg/mL [facility] Specimen Blood Performing Organization Address [facility] Centercode Phone Number [place] [phone] [place] [address] [place] Hepatic function panel (11/10/2018 2:43 AM CDT) Protein, Total 5.9 (L) 6.0 - 8.3 gm/dL [facility] Albumin 2.5 (L) 3.5 - 5.0 g/dL [facility] Total Bilirubin 1.0 0.2 - 1.2 mg/dL [facility] Bilirubin, Direct 0.7 (H) 0.1 - 0.5 mg/dL [facility] Alkaline Phosphatase 151 (H) 40 - 150 U/L [facility] AST 24 5 - 34 U/L [facility] ALT 12 6 - 55 U/L [facility] ALLEN Specimen Blood Performing Organization Address [facility] Cent[facility]ode Phone Number [facility] [address] [place] [address] [phone] CENTER after 12/12/2017 Insurance Payer Benefit Plan / Group Subscriber ID Type Phone Address [facility] ALL xxxxxxxxxxx Maps Contracted Advance Directives For more information, please contact:[place] [address] [address] [place], [place] [phone] Code Status Date Activated Date Inactivated Comments Full Code 11/10/2018 2:13 AM 11/11/2018 6:07 PM This code status was determined by: Patient
[2018-12-13] MEDS ORDERED: NA CHLORIDE 0.9% 500 ML ONE (11:51)
[2018-12-13 12:24] LABS: Absolute Lymphocytes (CBC) 0.3 K/uL (0.7-4.9); Basophils % 0.5 % (0-1.3); Hematocrit 32.5 % (36.0-45.0); Lymphocytes % 3.2 % (15.3-44.8); MPV 8.2 fL (7.6-11.3); RBC Red Blood Cell Count 3.24 M/uL (3.86-4.86)
[2018-12-13 12:31] LABS: Albumin 2.8 g/dL (3.4-5.0); Bilirubin Direct 0.9 mg/dL (0-0.2); Bilirubin Total 1.4 mg/dL (0.2-1.0); Potassium 4.2 mmol/L (3.5-5.1); Protein, Total 7.3 g/dL (6.4-8.2)
[2018-12-13 13:24] LABS: Basophilic Stippling 2+; Blood Morphology Comment NOTED (NOT SEEN); Platelet Estimate ADEQ; Urine White Blood Cell Casts OK
--- NOTE | 2018-12-13 13:25 | RAD REPORT ---
EXAM DESCRIPTION: CT - Abdomen Pelvis Wo Contrast - 12/13/2018 1:05 pm CLINICAL HISTORY: Abdominal pain COMPARISON: None TECHNIQUE: Computed axial tomography of the abdomen and pelvis was obtained. IV and oral contrast we re not requested. All CT scans are performed using dose optimization technique as appropriate and may include automated exposure control or mA/KV adjustment according to patient size. FINDINGS: The evaluation of solid organs, vessels and bowel is limited secondary to the lack of con trast administration. Moderate right pleural effusion with right basilar atelectasis. The liver, spleen, pancreas, adrenals and kidneys appear grossly normal. Diffuse edema within the subcutaneous tissues. Mild to moderate ascites Moderate thickening of the wall of the distal descending colon/proximal transverse colon There has been further compression of the L1 vertebral body fracture. It is now moderate to marked. T here is approximately 75% compression. . Increased density is present in the gallbladder IMPRESSION: Moderate thickening of the wall of the distal descending colon/proximal transverse colon probably colitis Anasarca Moderate right pleural effusion Small to moderate amount ascites Further compression of the L1 vertebral body Increased density within the gallbladder may represent stones
[2018-12-13 13:46] LABS: Urine Blood TRACE (NEG); Urine Glucose NEGATIVE (NEG); Urine Protein NEGATIVE (NEG); Urine pH 5.5 (5.0-7.0)
[2018-12-13 13:57] LABS: Calcium Oxalate Crystals- Ur PRESENT (NONE SEEN); Urine Bacteria <20 /HPF (<20); Urine Culture Reflex Order NOT NEEDED; Urine RBC <5 /HPF (NONE SEEN)
[2018-12-13 14:02] LABS: Urine Other Components NOTE (NONE SEEN)
--- NOTE | 2018-12-13 14:22 | RAD REPORT ---
EXAM DESCRIPTION: US - Abdomen Exam Limited - 12/13/2018 2:10 pm CLINICAL HISTORY: Abdominal pain. FINDINGS: Multiple gallstones and sludge. Mild gallbladder wall thickening. Common bile duct is upper limits normal caliber. IMPRESSION: Cholelithiasis with gallbladder sludge Mild thickening of the gallbladder wall may be secondary to hypoalbuminemia or cholecystitis.
[2018-12-13] MEDS ORDERED: CEFTRIAXONE/SWI 1gm 1 GM/10 ML SYR ONE (15:03)
[2018-12-13] MEDS ORDERED: METRONIDAZOLE 500mg IVPB 500 MG/100 ML BAG IV ONE (15:03)
[2018-12-13] MEDS ORDERED: CIPROFLOXACIN 400mg IV 400 MG/200 ML BAG IV ONE (15:12)
--- NOTE | 2018-12-13 15:49 | ER ---
Nurse's Notes [facility] Name: Sandra Armas Age: 73 yrs Sex: Female : 1945 Arrival Date: 12/13/2018 Time: 11:35 Bed 3 Private MD: Diagnosis: Abnormal results of liver function studies;Acute pancreatitis, unspecified;Dehydration;Hyperbilirubinemia Presentation: 12/13 11:35 Presenting complaint: EMS states: Pt was discharged home on Monday from here. Pt c/o aa5 generalized weakness and decreased appetite. Pt states "I haven't been eating since I left the hospital and I can't take my medicine". 11:35 Acuity: RYAN 2 aa5 11:35 Risk Assessment: Do you want to hurt yourself or someone else? Patient reports no aa5 desire to harm self or others. 11:35 Transition of care: patient was not received from another setting of care. Onset of aa5 symptoms was December 13, 2018. Initial Sepsis Screen: Does the patient meet any 2 criteria? HR > 90 bpm. Does the patient have a suspected source of infection? No. Patient's initial sepsis screen is negative. Care prior to arrival: Glucose check: 117. 11:35 Method Of Arrival: EMS: [facility] aa5 Historical: - Allergies: 11:35 Morphine; aa5 11:35 Vancomycin; aa5 15:10 Rocephin (Anaphylaxis); aa5 - PMHx: 11:35 Atrial Fib; Hypertension; Infection of Prosthetic Hip; Lung Cancer; lymphedema; GI aa5 bleed; CHF; - PSHx: 11:35 Bilateral hip replacements; Repair of left hip prosthesis; Tubal ligation; aa5 - Immunization history:: Pneumococcal vaccine is not up to date, Flu vaccine is up to date. - Social history:: Smoking status: Patient/guardian denies using tobacco. - Ebola Screening: : No symptoms or risks identified at this time. - Family history:: not pertinent. - Hospitalizations: : The patient was recently seen at [facility]. Screenin:20 Abuse screen: Denies threats or abuse. Nutritional screening: No deficits noted. aa5 Tuberculosis screening: No symptoms or risk factors identified. Fall Risk Fall in past 12 months (25 points). IV access (20 points). Total Anderson Fall Scale indicates High Risk Score (45 or more points). Fall prevention measures have been instituted. Side Rails Up X 2 Placed Close to Nursing Station. Assessment: 11:36 General: Appears comfortable, Behavior is calm, cooperative. Pain: Denies pain. Neuro: aa5 Level of Consciousness is awake, alert, obeys commands, Oriented to person, place, situation, Stem Dryer Maintainer are weak bilaterally Moves all extremities. Speech is normal, Facial symmetry appears normal, Pupils are PERRLA, Reports generalized weakness . Cardiovascular: Heart tones S1 S2 present Lymphedema noted to stefain legs . Edema 2+ pitting edema noted to upper legs, hips, stefani upper arms and lower abdomen. Rhythm is irregular. Respiratory: Airway is patent Respiratory effort is even, unlabored, Respiratory pattern is regular, symmetrical, Breath sounds are clear bilaterally. GI: Abdomen is round Bowel sounds present X 4 quads. Abd is soft and non tender X 4 quads. Reports Decreased appetite, denies vomiting yesterday, denies vomiting today. Denies any blood in vomit or in stool. : brief noted. EENT: No signs and/or symptoms were reported regarding the EENT system. Derm: Skin is dry, Skin is pale, Skin temperature is warm Diffuse bruising that is dark purple noted to bilateral arms. 11:55 Reassessment: Pt's family sates "she was just released from the hospital on Monday and aa5 she was admitted for 2 weeks and I now she had a GI bleed so they had to cauterize it" . 12:00 Neuro: Level of Consciousness is awake, alert, obeys commands, Oriented to person, aa5 place, situation. Respiratory: Airway is patent Respiratory effort is even, unlabored, Respiratory pattern is regular, symmetrical. Derm: Skin is dry, Skin is pale, Skin temperature is warm. 12:00 Reassessment: Pt and pt's family notified of wait time for lab results. . aa5 13:00 Reassessment: Pt resting in bed with eyes closed, respirations even and unlabored, skin aa5 is pale/warm/dry. 13:23 Reassessment: wet brief noted, pt cleaned and new brief applied. Redness noted to groin aa5 area. . 13:23 Derm: Decubitus located on sacrum is stage I Redness noted that it's blanchable is aa5 draining none noted. 15:00 Reassessment: Pt assisted with bedpan. Pt voided 5 cc of urine, pt cleaned, brief aa5 applied. . 15:12 Reassessment: Pt resting in bed with eyes closed, respirations even and unlabored, skin aa5 is pale/warm/dry. Pt easy to awaken to verbal stimuli. . 15:46 Reassessment: Pt resting in bed with eyes closed, respirations even and unlabored, skin aa5 is pale/warm/dry. A-fib on monitor. Awaiting transfer acceptance from [facility]. . 16:20 Reassessment: Report given to RONA Eller (at [facility]). aa5 16:25 Reassessment: Pt and pt's notified of wait time for EMS for transfer. . aa5 16:25 Reassessment: Pt resting in bed with eyes closed, respirations even and unlabored, skin aa5 is pale/warm/dry. Pt's at bedside. . 17:00 Reassessment: Pt c/o pain to sacral area, pt repositioned in bed, pt states feeling aa5 better. Awaiting on EMS for transfer. . 18:00 Reassessment: Pt's states "her back is hurting she takes norco at home, can she aa5 have some pain medicine". was notified. . 18:14 Neuro: Level of Consciousness is awake, alert, obeys commands, Oriented to person, aa5 place, situation. Cardiovascular: Rhythm is atrial fibrillation. Respiratory: Airway is patent Respiratory effort is even, unlabored, Respiratory pattern is regular, symmetrical. Derm: Skin is dry, Skin is pale, Skin temperature is warm. 18:40 Neuro: Level of Consciousness is awake, alert, obeys commands, Oriented to person, aa5 place, situation. Respiratory: Airway is patent Respiratory effort is even, unlabored, Respiratory pattern is regular, symmetrical. Derm: Skin is dry, Skin is pale, Skin temperature is warm. Vital Signs: 11:36 BP 109 / 71; Pulse 96; Resp 18 S; Temp 97.7(O); Pulse Ox 97% on 3 lpm NC; Pain 0/10; aa5 11:36 Weight 80.29 kg (R); Height 5 ft. 7 in. (170.18 cm) (R); aa5 11:45 BP 108 / 63; Pulse 93; Resp 16 S; Pulse Ox 97% on 3 lpm NC; aa5 12:00 BP 114 / 61; Pulse 98; Resp 18 S; Pulse Ox 98% on 3 lpm NC; aa5 12:15 BP 114 / 77; Pulse 94; Resp 18 S; Pulse Ox 96% on 3 lpm NC; aa5 12:30 BP 112 / 70; Pulse 95; Resp 16 S; Pulse Ox 95% on 3 lpm NC; aa5 13:30 BP 115 / 70; Pulse 96; Resp 18; Pulse Ox 95% on 3 lpm NC; aa5 14:30 BP 109 / 69; Pulse 89; Resp 16 S; Pulse Ox 96% on 3 lpm NC; aa5 15:30 BP 119 / 72; Pulse 92; Resp 16 S; Temp 98.0(TE); Pulse Ox 96% on 3 lpm NC; aa5 16:30 BP 112 / 71; Pulse 91; Resp 18 S; Pulse Ox 96% on 3 lpm NC; aa5 17:30 BP 118 / 67; Pulse 96; Resp 16 S; Pulse Ox 96% on 3 lpm NC; aa5 18:30 BP 120 / 65; Pulse 95; Resp 16 S; Pulse Ox 96% on 3 lpm NC; aa5 11:36 Body Mass Index 27.72 (80.29 kg, 170.18 cm) aa5 ED Course: 11:35 Patient arrived in ED. aa5 11:35 Dick Skinner MD is Attending Physician. rn 11:35 Arm band placed on Patient placed in an exam room, on a stretcher. aa5 11:35 Patient has correct armband on for positive identification. Bed in low position. Call aa5 light in reach. Side rails up X2. campus monitor on. Pulse ox on. NIBP on. 11:36 EKG done, by emergency technician. reviewed by Dick Skinner MD. at1 11:44 Triage completed. aa5 11:46 Karey Ko, RN is Primary Nurse. aa5 11:58 Initial lab(s) drawn, by sc, sent to lab. Inserted saline lock: 20 gauge in right aa5 antecubital area, using aseptic technique. Blood collected. 12:57 CT completed. Patient tolerated procedure well. Patient moved to CT via stretcher. jg6 Patient moved back from CT. 13:06 Abdomen In Process Unspecified. EDMS 13:23 Straight cath inserted, using sterile technique, 16 Fr. Specimen obtained. Returned aa5 100cc of urine. Patient tolerated well. 13:58 US Abdomen Limited In Process Unspecified. EDMS 18:40 No provider procedures requiring assistance completed. Patient transferred, IV remains aa5 in place. Administered Medications: 12:01 Drug: NS 0.9% 500 ml Route: IV; Rate: bolus; Site: right antecubital; aa5 13:00 Follow up: Response: No adverse reaction; IV Status: Completed infusion; IV Intake: aa5 500ml 15:07 Not Given (Patient Refused; states previous allergy that was not noted): Rocephibandar - rn (cefTRIAXone) 1 grams IVPB once over 30 mins; (mix in 50 mL NS) 15:12 Drug: Flagyl 500 mg Volume: 100 ml; Route: IVPB; Rate: 200 ml/hr; Infused Over: 30 aa5 mins; Site: right antecubital; 15:45 Follow up: Response: No adverse reaction; IV Status: Completed infusion aa5 15:46 Drug: Cipro 400 mg Volume: 200 ml; Route: IVPB; Infused Over: 60 mins; Site: right aa5 antecubital; 16:46 Follow up: Response: No adverse reaction; IV Status: Completed infusion aa5 18:14 Drug: [place] 5 mg-325 mg 1 tabs Route: PO; aa5 18:40 Follow up: Response: No adverse reaction aa5 Intake: 13:00 IV: 500ml; Total: 500ml. aa5 Outcome: 15:48 ER care complete, transfer ordered by . rn 18:40 Transferred by ground EMS to [facility], Transfer form completed. aa5 X-rays sent w/ patient. Note: Report given to [facility] 18:40 Condition: stable 18:40 Discharge instructions given to patient, significant other, Instructed on the need for transfer, Demonstrated understanding of instructions. 18:50 Patient left the ED. aa5 Signatures: Dispatcher [employer] EDMS Dick Skinner MD MD rn Calderon, Audri, RN RN aa5 Mitzi Flores, insulation cutter EKG Tat1 Diana Hernandez jg6 Corrections: (The following items were deleted from the chart) 12:26 11:36 GI: Abdomen is round Bowel sounds present X 4 quads. Abd is soft and non tender X aa5 4 quads. Reports vomiting yesterday, denies vomiting today. Denies any blood in vomit or in stool. aa5 14:05 11:36 Cardiovascular: Heart tones S1 S2 present Lymphedema noted to stefani legs . Rhythm aa5 is irregular aa5 14:23 11:36 Respiratory: Airway is patent Respiratory effort is even, unlabored, Respiratory aa5 pattern is regular, symmetrical, aa5 14:23 11:36 Derm: Skin is dry, Skin is pale, Skin temperature is warm Diffuse bruising that aa5 is dark purple noted to bilateral arms aa5 17:06 11:36 Cardiovascular: Heart tones S1 S2 present Lymphedema noted to stefani legs . Edema 2+ aa5 pitting edema noted to upper legs, hips, and lower abdomen. Rhythm is irregular aa5 18:58 18:58 Patient left the ED. aa5 aa5
--- NOTE | 2018-12-13 15:50 | EDPHYS ---
Physician Documentation [facility] Name: Sandra Armas Age: 73 yrs Sex: Female : 1945 Arrival Date: 12/13/2018 Time: 11:35 Bed 3 Private MD: ED Physician Dick Skinner HPI: 12/13 12:55 This 73 yrs old Female presents to ER via EMS with complaints of General rn Weakness. 12:55 Family reports generalized weakness, recently admitted to hospital, sent home 2 days rn ago. Reports decreased appetite and strength since getting home, denied from LTAC per insurance. UNable to take medication due to weakness, no appetite, and threw up yesterday. Reports abd pain.. 12:56 Severity of symptoms: At their worst the symptoms were moderate in the emergency rn department the symptoms are unchanged. It is unknown whether or not the patient has had similar symptoms in the past. Historical: - Allergies: 11:35 Morphine; aa5 11:35 Vancomycin; aa5 15:10 Rocephin (Anaphylaxis); aa5 - PMHx: 11:35 Atrial Fib; Hypertension; Infection of Prosthetic Hip; Lung Cancer; lymphedema; GI aa5 bleed; CHF; - PSHx: 11:35 Bilateral hip replacements; Repair of left hip prosthesis; Tubal ligation; aa5 - Immunization history:: Pneumococcal vaccine is not up to date, Flu vaccine is up to date. - Social history:: Smoking status: Patient/guardian denies using tobacco. - Ebola Screening: : No symptoms or risks identified at this time. - Family history:: not pertinent. - Hospitalizations: : The patient was recently seen at [facility]. ROS: 12:56 Constitutional: Negative for fever, chills, and weight loss, Eyes: Negative for injury, rn pain, redness, and discharge, Neck: Negative for injury, pain, and swelling, Cardiovascular: Negative for chest pain, palpitations, and edema, Respiratory: Negative for shortness of breath, cough, wheezing, and pleuritic chest pain, Abdomen/GI: + abd pain and nausea/vomiting, no blood in stool MS/Extremity: Negative for injury and deformity, Skin: Negative for injury, rash, and discoloration, Neuro: Negative for headache, numbness, tingling, and seizure. Exam: 12:56 Constitutional: This is a well developed, well nourished patient who is awake, rn somnolent, no acute distress Head/Face: Normocephalic, atraumatic. Eyes: Pupils equal round and reactive to light, extra-ocular motions intact. Left subconjunctival hemorrhage ENT: dry MM Cardiovascular: Irregular, tachycardic Respiratory: Lungs have equal breath sounds bilaterally, clear to auscultation. No increased work of breathing, no retractions or nasal flaring. Abdomen/GI: soft, + left sided abd tenderness, no rebound, no distension MS/ Extremity: Pulses equal, no cyanosis. Neurovascular intact. Full, normal range of motion. Equal circumference. Neuro: Awake, GCS 15, oriented to person, place, time, and situation. Cranial nerves II-XII grossly intact. Motor strength 4/5 in all extremities. Sensory grossly intact. Vital Signs: 11:36 BP 109 / 71; Pulse 96; Resp 18 S; Temp 97.7(O); Pulse Ox 97% on 3 lpm NC; Pain 0/10; aa5 11:36 Weight 80.29 kg (R); Height 5 ft. 7 in. (170.18 cm) (R); aa5 11:45 BP 108 / 63; Pulse 93; Resp 16 S; Pulse Ox 97% on 3 lpm NC; aa5 12:00 BP 114 / 61; Pulse 98; Resp 18 S; Pulse Ox 98% on 3 lpm NC; aa5 12:15 BP 114 / 77; Pulse 94; Resp 18 S; Pulse Ox 96% on 3 lpm NC; aa5 12:30 BP 112 / 70; Pulse 95; Resp 16 S; Pulse Ox 95% on 3 lpm NC; aa5 13:30 BP 115 / 70; Pulse 96; Resp 18; Pulse Ox 95% on 3 lpm NC; aa5 14:30 BP 109 / 69; Pulse 89; Resp 16 S; Pulse Ox 96% on 3 lpm NC; aa5 15:30 BP 119 / 72; Pulse 92; Resp 16 S; Temp 98.0(TE); Pulse Ox 96% on 3 lpm NC; aa5 16:30 BP 112 / 71; Pulse 91; Resp 18 S; Pulse Ox 96% on 3 lpm NC; aa5 17:30 BP 118 / 67; Pulse 96; Resp 16 S; Pulse Ox 96% on 3 lpm NC; aa5 18:30 BP 120 / 65; Pulse 95; Resp 16 S; Pulse Ox 96% on 3 lpm NC; aa5 11:36 Body Mass Index 27.72 (80.29 kg, 170.18 cm) aa5 MDM: 11:35 Patient medically screened. rn 15:40 Differential Diagnosis cholelithiasis, cholecystitis, gallstone pancreatitis. . Data rn reviewed: vital signs, nurses notes, lab test result(s), radiologic studies, CT scan, and as a result, I will admit patient. Counseling: I had a detailed discussion with the patient and/or guardian regarding: the historical points, exam findings, and any diagnostic results supporting the discharge/admit diagnosis, lab results, radiology results, the need to transfer to another facility, [facility] does not immediately have the required specialist. Response to treatment: the patient's symptoms have mildly improved after treatment. 15:46 ED course: Accepted for transfer to [facility] for GI eval given rn gallstones/sludge/thickened wall, abnormal lfts and elevated lipase. . 12/13 11:45 Order name: Basic Metabolic Panel; Complete Time: 13:02 rn 12/13 11:45 Order name: CBC with Diff; Complete Time: 13:50 rn 12/13 11:45 Order name: Creatinine for Radiology; Complete Time: 13:02 rn 12/13 11:45 Order name: Hepatic Function; Complete Time: 13:02 rn 12/13 11:45 Order name: Lipase; Complete Time: 13:02 rn 12/13 11:45 Order name: Urine Microscopic Only; Complete Time: 14:05 rn 12/13 12:57 Order name: Abdomen ; Complete Time: 13:50 EDMS 12/13 13:02 Order name: US Abdomen Limited; Complete Time: 14:47 rn 12/13 13:25 Order name: CBC Smear Scan; Complete Time: 13:50 EDMS 12/13 13:28 Order name: Urine Dipstick--Ancillary (enter results); Complete Time: 13:50 bd 12/13 11:45 Order name: IV Saline Lock; Complete Time: 12:01 rn 12/13 11:45 Order name: Labs collected and sent; Complete Time: 12:01 rn 12/13 11:45 Order name: Urine Dipstick-Ancillary (obtain specimen); Complete Time: 13:23 rn 12/13 13:22 Order name: Straight Cath - Urine; Complete Time: 13:23 aa5 12/13 17:43 Order name: EKG Electrocardiogram EDMS Administered Medications: 12:01 Drug: NS 0.9% 500 ml Route: IV; Rate: bolus; Site: right antecubital; aa5 13:00 Follow up: Response: No adverse reaction; IV Status: Completed infusion; IV Intake: aa5 500ml 15:07 Not Given (Patient Refused; states previous allergy that was not noted): Jose Luis - rn (cefTRIAXone) 1 grams IVPB once over 30 mins; (mix in 50 mL NS) 15:12 Drug: Flagyl 500 mg Volume: 100 ml; Route: IVPB; Rate: 200 ml/hr; Infused Over: 30 aa5 mins; Site: right antecubital; 15:45 Follow up: Response: No adverse reaction; IV Status: Completed infusion aa5 15:46 Drug: Cipro 400 mg Volume: 200 ml; Route: IVPB; Infused Over: 60 mins; Site: right aa5 antecubital; 16:46 Follow up: Response: No adverse reaction; IV Status: Completed infusion aa5 18:14 Drug: [place] 5 mg-325 mg 1 tabs Route: PO; aa5 18:40 Follow up: Response: No adverse reaction aa5 Disposition: 12/13/18 15:48 Transfer ordered to [facility]. Diagnosis are Abnormal results of liver function studies, Acute pancreatitis, unspecified, Dehydration, Hyperbilirubinemia. - Reason for transfer: Higher level of care. - Accepting physician is Dr. Toribio. - Condition is Stable. - Problem is new. - Symptoms have improved. Signatures: Dispatcher [employer] EDDC Dick Skinner MD MD rn Calderon, Audri RN RN aa5 Corrections: (The following items were deleted from the chart) 12:56 11:48 Abdomen Pelvis W Con+CT.RAD.BRZ ordered. [facility] 18:58 15:48 12/13/2018 15:48 Transfer ordered to [facility]. Diagnosis is aa5 Abnormal results of liver function studies; Acute pancreatitis, unspecified; Dehydration; Hyperbilirubinemia. Reason for transfer: Higher level of care. Accepting physician is Dr. Toribio. Condition is Stable. Problem is new. Symptoms have improved. rn
[2018-12-13] MEDS ORDERED: HYDROCODONE/APAP 5/325 MG TAB ONE (18:14)
[2018-12-13 19:55] VITALS: TEMP 97.7
[2018-12-13 20:27] VITALS: O2SAT 95
[2018-12-13 20:29] VITALS: BP 115/70
--- NOTE | 2018-12-14 08:25 | EKG ---
Test Date: 2018-12-13 Test Time: 11:31:56 Car Deliverer: ANDRESSA MEASUREMENT RESULTS: Intervals: Rate: 100 [place]: QRSD: 80 QT: 304 QTc: 392 [place]: P: [place]: QRS: 36 T: 210 INTERPRETIVE STATEMENTS: Atrial fibrillation Low voltage QRS Nonspecific ST and T wave abnormality, probably digitalis effect Abnormal ECG Compared to ECG 11/09/2018 18:33:04 ST (T wave) deviation now present Myocardial infarct finding no longer present Electronically Signed On 12-14-18 08:24:27 CDT by Van Cheng
== END 2018-12-13 18:58 | disposition short-term general hospital (02) ==
LOC: ER 11:30
DX: R94.5 Abnormal results of liver function studies (principal); K85.90 Acute pancreatitis without necrosis or infection, unspecified; E86.0 Dehydration; E80.6 Other disorders of bilirubin metabolism; I10 Essential (primary) hypertension; Z88.3 Allergy status to other anti-infective agents; Z88.5 Allergy status to narcotic agent; Z85.118 Personal history of other malignant neoplasm of bronchus and lung; Z96.643 Presence of artificial hip joint, bilateral
CPT/HCPCS: 96365; 96367; 96361; 93005; 85025; 80048; 36415; 80076; 83690; 74176; 76705; 51702; 99285; J0696; J0744; 81003; 81015